=== PATIENT | male | born 1950 | race American Indian/Alaskan Native ===

== ENCOUNTER 2018-02-25 19:20 | Emergency (ER) | payer OTHER ==
--- OUTSIDE RECORDS SUMMARY | 2018-02-25 19:23 | XMS REPORT | Clinical Summary ---
:1950 Author Organization [facility] Address [address] [place] [address] Care Team Providers Name Role Phone Arthur Mac MD Primary Care Provider Allergies No Known Allergies Current Medications Prescription Sig. Disp. Refills Start Date End Date Status amlodipine-benazepri Take 1 capsule Active l (LOTREL 5-10) 5-10 by mouth mg per capsule daily. atorvastatin Take 10 mg by Active (LIPITOR) 10 MG mouth daily. tablet carbidopa-levodopa Take 1.5 Active 25-100 mg per tablets by disintegrating mouth 4 (four) tablet times a day. ON EVENING DOSE PT TAKES 1 TABLET aspirin (ECOTRIN) 81 Take 81 mg by Active MG enteric coated mouth daily. tablet tadalafil (CIALIS) Take 20 mg by Active 20 mg tablet mouth as needed. traMADol (ULTRAM) 50 Take 50 mg by Active mg tablet mouth as needed for moderate pain. rOPINIRole (REQUIP) Take 1 tablet 360 tablet 3 01/31/2017 Active 4 MG tablet by mouth 4 times a day as directed carbidopa-levodopa Take 1.5 tab 585 tablet 3 01/31/2017 Active (SINEMET) 25-100 mg by mouth at per tablet 630a then 1 tab by mouth at 930a 130p 330p 630p and 230a rOPINIRole XL Take 1 tablet 180 tablet 3 02/23/2017 Active (REQUIP XL) 8 MG 24 by mouth twice hr tablet a day at directed carbidopa-levodopa Take 1 tablet 180 tablet 3 02/23/2017 Active (SINEMET CR) 50-200 by mouth twice mg per CR tablet a day as directed baclofen (LIORESAL) TAKE 1 TABLET 90 tablet 3 04/26/2017 Active 10 MG tablet BY MOUTH 3 TIMES A DAY baclofen (LIORESAL) Take 1 tablet 90 tablet 3 12/30/2016 Discontinued 10 MG tablet (10 mg total) 7 by mouth 3 (three) times a day. clonAZEPAM Take 1 mg by Discontinued (KlonoPIN) 0.5 MG mouth nightly 7 tablet as needed for seizures. clonAZEPAM Take 2 tablets 180 tablet 0 05/23/2017 (KlonoPIN) 0.5 MG by mouth at 7 tablet bedtime clonAZEPAM TAKE 2 TABLETS 180 tablet 0 08/29/2017 (KlonoPIN) 0.5 MG BY MOUTH AT 8 tablet BEDTIME Active Problems Problem Noted Date Left hand pain 07/07/2017 Closed nondisplaced fracture of middle phalanx of left index finger 07/04/2017 REM sleep behavior disorder 11/10/2016 Parkinson disease 10/22/2016 Essential hypertension 10/22/2016 Mixed hyperlipidemia 10/22/2016 Encounters Date Type Specialty Care Team Description 08/29/2017 Refill Neurology Redd Cary MD 08/16/2017 Office Visit Orthopedic Surgery Adolfo Lazcano, Closed nondisplaced MD fracture of middle phalanx of left index finger with routine healing, subsequent encounter (Primary Dx) 07/07/2017 Hospital Encounter Radiology Adolfo Lazcano MD 07/07/2017 Office Visit Orthopedic Surgery Adolfo Lazcano, Closed nondisplaced fracture of middle phalanx of left index finger, initial encounter (Primary Dx); Left hand pain 07/07/2017 Ancillary Orders Radiology Adolfo Lazcano MD 05/23/2017 Orders Only Neurology Ruby Lion MA 04/26/2017 Refill Neurology Redd Cary MD after 02/24/2017 Family History Medical History Relation Name Comments Heart attack Father No Known Problems Mother Relation Name Status Comments Father Mother Social History Tobacco Use Types Packs/Day Years Used Date Never Smoker Smokeless Tobacco: Never Used Alcohol Use Drinks/Week oz/Week Comments No Sex Assigned at Date Recorded Not on file Last Filed Vital Signs Not on file Plan of Treatment Health Maintenance Due Date Last Done Comments COLONOSCOPY 2001 ZOSTER VACCINE 2011 PNEUMOCOCCAL POLYSACCHARIDE VACCINE AGE 65 AND OVER 2016 PNEUMOCOCCAL-13 2016 INFLUENZA VACCINE 06/14/2018 Procedures Procedure Name Priority Date/Time Associated Diagnosis Comments IA CLOSE RX Routine 07/07/2017 12:00 Closed nondisplaced Results for this PROX/MID FING SHFT PM CDT fracture of middle procedure are in FX phalanx of left index the results finger, initial section. encounter after 02/24/2017 Results XR Finger 2+ Vw Left (08/16/2017 1:25 PM) Specimen Performing Laboratory [facility] [address] [place] [address] Narrative PA, lateral, oblique x-rays of the left hand demonstrate a small, nondisplaced of fracture of the middle phalanx of the left index finger. ORTHOPEDIC INJURY TREATMENT (07/07/2017 12:00 PM) Narrative Adolfo Lazcano MD 07/07/2017 12:00 PM Orthopedic Injury Treatment Date/Time: 07/07/2017 11:58 AM Performed by: ADOLFO LAZCANO Authorized by: ADOLOF LAZCANO Consent given by: patient Site marked: site marked Timeout: Immediately prior to procedure a time out was called to verify the correct patient, procedure, equipment, child support specialist and site/side marked as required Injury Location details: left index finger Fracture type: middle phalanx fracture Pre-procedure assessment Distal perfusion: normal Distal sensation: normal Range of motion: reduced Procedure Manipulation performed? no manipulation performed Anesthetics: local anesthesia not used Immobilization: splint Splint/Brace type: static finger Supplies used: aluminum splint Post-procedure assessment Distal perfusion: normal Distal sensation: normal Range of motion: unchanged Patient tolerance: patient tolerated the procedure well with no immediate complications XR Hand 3+ Vw Left (07/07/2017 11:16 AM) Specimen Performing Laboratory [facility] [address] [place] [address] Narrative PA, lateral, oblique x-rays of the left hand demonstrate a small, nondisplaced avulsion fracture of the middle phalanx. after 02/24/2017 Insurance Payer Benefit Plan / Group Subscriber ID Type Phone Address MEDICARE MEDICARE PART A AND B xxxxxxxxxx Medicare [place], [place] AETNA AETNA [employer] INDEMNITY xxxxxxxxx Indemnity y [phone] [place], [facility] [id number]
--- NOTE | 2018-02-25 20:47 | RAD REPORT ---
EXAM DESCRIPTION: CT - Thorax Wo Con - 02/25/2018 8:21 pm CLINICAL HISTORY: Fall, left-sided chest pain do a COMPARISON: None. TECHNIQUE: Axial 5 mm thick images of the chest were obtained without IV contrast. All CT scans are performed using dose optimization technique as appropriate and may include automated exposure control or mA/KV adjustment according to patient size. FINDINGS: No pulmonary contusion or acute lung parenchymal process. No pleural thickening or pleural effusion. No pneumothorax. No abnormal mediastinal or hilar masses or lymphadenopathy seen. No gross aortic or pulmonary artery finding suspected. Assessment is limited in the absence of IV contrast. No pericardial thickening or effusion. No chest wall mass or abnormal axillary lymphadenopathy. There are nondisplaced fractures of the late ral sixth and seventh ribs. No pathologic component. Thoracic spine degenerative changes are present. IMPRESSION: Nondisplaced left sixth and seventh lateral rib fractures. No pulmonary contusion, pneumothorax or other associated finding.
--- NOTE | 2018-02-25 20:50 | RAD REPORT ---
EXAM DESCRIPTION: CT - Abdomen Wo Contrast - 02/25/2018 8:21 pm CLINICAL HISTORY: Fall, left-sided chest and abdomen pain COMPARISON: None. TECHNIQUE: Axial [address] imaging of the abdomen was performed. No IV contrast was adm inistered. Oral contrast was administered. All CT scans are performed using dose optimization technique as appropriate and may include automated exposure control or mA/KV adjustment according to patient size. FINDINGS: Lung base atelectasis is present. No pneumothorax or pleural fluid collection. Left-sided rib fracture findings are detailed on separate CT chest report. No splenic injury. Liver and pancreas also without acute findings. Gallbladder is contracted. No bili hung tree dilatation. No hydronephrosis or suspicious renal mass. Isodense masses and pyelonephritis are not excluded on a non IV contrast study. No adrenal abnormality. Stomach is distended by food. There is moderate stool volume in the nondilated colon. No free air, fr ee fluid or inflammatory stranding. No hernia, mass or bulky lymphadenopathy. Thoracic spine degenerative changes are present. Exam sensitivity is decreased when no IV contrast is administered. IMPRESSION: No traumatic injuries to the abdomen. No acute findings noted.
--- NOTE | 2018-02-25 21:07 | EDPHYS ---
Physician Documentation [facility] Name: Pritesh Salas Age: 68 yrs Sex: Male : 1950 Arrival Date: 02/25/2018 Time: 19:21 Bed 14 Private MD: ED Physician Mason Mcclelland HPI: 02/25 20:12 This 68 yrs old Male presents to ER via Wheelchair with complaints of jr8 Chest Pain, Fall Injury. 20:12 The patient or guardian reports chest pain that is located primarily in the left jr8 lateral anterior chest. Onset: The symptoms/episode began/occurred acutely, yesterday. The pain does not radiate. Associated signs and symptoms: The patient has no apparent associated signs or symptoms. The chest pain is described as sharp. Duration: The patient or guardian reports a single episode. Severity of pain: At its worst the pain was moderate in the emergency department the pain is unchanged. The patient has not experienced similar symptoms in the past. The patient has not recently seen a physician. Patient had fell and hit left chest wall. Denies hitting head or neck. No LOC. Continued pain since fall. Has a procedure or DPS coming up this week and wants to make sure he is ok . Historical: - Allergies: 19:28 Codeine; la1 - PMHx: 19:28 Parkinsons; la1 - Immunization history:: Adult Immunizations up to date. - Social history:: Smoking status: Patient/guardian denies using tobacco. ROS: 20:12 Eyes: Negative for injury, pain, redness, and discharge, ENT: Negative for injury, jr8 pain, and discharge, Neck: Negative for injury, pain, and swelling, Respiratory: Negative for shortness of breath, cough, wheezing, and pleuritic chest pain, Abdomen/GI: Negative for abdominal pain, nausea, vomiting, diarrhea, and constipation, Back: Negative for injury and pain, MS/Extremity: Negative for injury and deformity, Skin: Negative for injury, rash, and discoloration, Neuro: Negative for headache, weakness, numbness, tingling, and seizure. 20:12 Cardiovascular: Positive for chest pain, with movement, Negative for edema, orthopnea, palpitations, paroxysmal nocturnal dyspnea. Exam: 20:12 Head/Face: Normocephalic, atraumatic. Eyes: Pupils equal round and reactive to light, jr8 extra-ocular motions intact. Lids and lashes normal. Conjunctiva and sclera are non-icteric and not injected. Cornea within normal limits. Periorbital areas with no swelling, redness, or edema. ENT: Nares patent. No nasal discharge, no septal abnormalities noted. Tympanic membranes are normal and external auditory canals are clear. Oropharynx with no redness, swelling, or masses, exudates, or evidence of obstruction, uvula midline. Mucous membranes moist. Neck: Trachea midline, no thyromegaly or masses palpated, and no cervical lymphadenopathy. Supple, full range of motion without nuchal rigidity, or vertebral point tenderness. No Meningismus. Cardiovascular: Regular rate and rhythm with a normal S1 and S2. No gallops, murmurs, or rubs. Normal PMI, no JVD. No pulse deficits. Respiratory: Lungs have equal breath sounds bilaterally, clear to auscultation and percussion. No rales, rhonchi or wheezes noted. No increased work of breathing, no retractions or nasal flaring. Abdomen/GI: Soft, non-tender, with normal bowel sounds. No distension or tympany. No guarding or rebound. No evidence of tenderness throughout. Back: No spinal tenderness. No costovertebral tenderness. Full range of motion. Skin: Warm, dry with normal turgor. Normal color with no rashes, no lesions, and no evidence of cellulitis. MS/ Extremity: Pulses equal, no cyanosis. Neurovascular intact. Full, normal range of motion. Neuro: Awake and alert, GCS 15, oriented to person, place, time, and situation. Cranial nerves II-XII grossly intact. Motor strength 5/5 in all extremities. Sensory grossly intact. Cerebellar exam normal. Normal gait. 20:12 Chest/axilla: Inspection: normal, Palpation: crepitus, that is mild, of the left lateral anterior chest, tenderness, that is moderate, of the left lateral anterior chest. Vital Signs: 19:28 BP 131 / 91; Pulse 89; Resp 14; Temp 98.0(TE); Pulse Ox 100% on R/A; Weight 58.97 kg; la1 Height 5 ft. 5 in. (165.10 cm); 21:05 BP 145 / 88; Pulse 79; Resp 24; Temp 98.9; Pulse Ox 99% ; Pain 2/10; ag2 19:28 Body Mass Index 21.63 (58.97 kg, 165.10 cm) la1 MDM: 19:29 Patient medically screened. jr8 21:06 Data reviewed: vital signs, nurses notes, radiologic studies, CT scan, and as a result, jr8 I will discharge patient. Data interpreted: Pulse oximetry: on room air is 100 %. Interpretation: normal. Counseling: I had a detailed discussion with the patient and/or guardian regarding: the historical points, exam findings, and any diagnostic results supporting the discharge/admit diagnosis, radiology results, the need for outpatient follow up, a family practitioner, to return to the emergency department if symptoms worsen or persist or if there are any questions or concerns that arise at home. 02/25 19:45 Order name: CT Chest Wo Con; Complete Time: 21:06 jr8 02/25 20:14 Order name: Abdomen Wo Contrast; Complete Time: 21:06 EDMS Administered Medications: No medications were administered Disposition: 02/25/18 21:07 Discharged to Home. Impression: Multiple fractures of ribs, left side. - Condition is Stable. - Discharge Instructions: Rib Fracture. - Medication Reconciliation Form, Thank You Letter, Antibiotic Education, Prescription Opioid Use form. - Follow up: Private Physician; When: 1 - 2 days; Reason: Recheck today's complaints, Continuance of care, Re-evaluation by your physician. - Problem is new. - Symptoms have improved. Addendum: 02/27/2018 06:24 Co-signature as Attending Physician, Mason Mcclelland MD. g s Signatures: Dispatcher [employer] EDMS Last Parks PA PA jr8 Ahmet Thoams, RN RN la1 Mason Mcclelland MD MD gs Garcia, [employer] [facility]
--- NOTE | 2018-02-25 21:07 | ER ---
Nurse's Notes [facility] Name: Pritesh Salas Age: 68 yrs Sex: Male : 1950 Arrival Date: 02/25/2018 Time: 19:21 Bed 14 Private MD: Diagnosis: Multiple fractures of ribs, left side Presentation: 02/25 19:26 Presenting complaint: Patient states: I am being treated for parkinsons at [facility] and la1 had deep brain stimulation sx one week ago. 3 days ago I had a fall from standing and was fine until yesterday when I began having severe pain in left chest area. Transition of care: patient was not received from another setting of care. Onset of symptoms was February 25, 2018. Care prior to arrival: None. 19:26 Method Of Arrival: Wheelchair la1 19:26 Acuity: WENCESLAO 3 la1 Historical: - Allergies: 19:28 Codeine; la1 - PMHx: 19:28 Parkinsons; la1 - Immunization history:: Adult Immunizations up to date. - Social history:: Smoking status: Patient/guardian denies using tobacco. Screenin:53 Abuse screen: Denies threats or abuse. Nutritional screening: No deficits noted. ag2 Tuberculosis screening: No symptoms or risk factors identified. Fall Risk Fall in past 12 months (25 points). Assessment: 19:40 General: Appears in no apparent distress. comfortable, well groomed, well nourished, ag2 Behavior is calm, cooperative, appropriate for age, Smells of Reports Denies. General: Patient has incision on frontal aspect of head, incision is intact and closed with fer. Patient stated " I had a DBS for Parkinson's last week." . Pain: Complains of pain in left lower chest Pain does not radiate. Pain began 1 day ago. Neuro: Level of Consciousness is awake, alert, obeys commands, Oriented to person, place, time, Family Program Specialist are equal bilaterally Speech is normal, Pupils are PERRLA. Cardiovascular: Chest pain Patient few 3 days ago and yesterday patient started having left lower chest pain. Patient stated chest pain is lower at this time. . Cardiovascular: Heart tones present Patient's skin is warm and dry. Pulses are all present. are 3+ in right radial artery, right dorsalis pedis artery, left radial artery, left dorsalis pedis artery, left carotid pulse and right carotid pulse Rhythm is sinus rhythm. Respiratory: No deficits noted. Airway is patent Respiratory effort is even, unlabored, Respiratory pattern is regular, Breath sounds are clear bilaterally. GI: No deficits noted. Abdomen is round Bowel sounds present X 4 quads. :. : No deficits noted. Musculoskeletal:. Injury Description: Patient fell 3 days complaining of pain to the left lower side of chest. 19:58 Reassessment: Patient left for radiology. ag2 20:26 Reassessment: Patient back from CT, Patient has no s/s of distress. Patient reports no ag2 chest pain at this time. Pt reports pain with movement only. . 21:02 Reassessment: No changes from previously documented assessment. Patient and/or family ag2 updated on plan of care and expected duration. Pain level reassessed. Patient is alert, oriented x 3, equal unlabored respirations, skin warm/dry/pink. Patient reports no chest pain at this time. . Vital Signs: 19:28 BP 131 / 91; Pulse 89; Resp 14; Temp 98.0(TE); Pulse Ox 100% on R/A; Weight 58.97 kg; la1 Height 5 ft. 5 in. (165.10 cm); 21:05 BP 145 / 88; Pulse 79; Resp 24; Temp 98.9; Pulse Ox 99% ; Pain 2/10; ag2 19:28 Body Mass Index 21.63 (58.97 kg, 165.10 cm) la1 ED Course: 19:21 Patient arrived in ED. do 19:27 Triage completed. la1 19:28 Arm band placed on left wrist. la1 19:29 Last Parks PA is PHCP. jr8 19:29 Mason Mcclelland MD is Attending Physician. jr8 19:31 Teresa Ballesteros is Primary Nurse. ag2 19:53 Patient has correct armband on for positive identification. Bed in low position. Call ag2 light in reach. Side rails up X2. Adult w/ patient. panel monitor on. Pulse ox on. NIBP on. 19:53 No provider procedures requiring assistance completed. Patient maintains SpO2 ag2 saturation greater than 95% on room air. 20:21 CT Chest Wo Con In Process Unspecified. EDMS 20:21 Abdomen Wo Contrast In Process Unspecified. EDMS 21:26 Patient did not have IV access during this emergency room visit. ag2 Administered Medications: No medications were administered Outcome: 21:07 Discharge ordered by MD. mock 21:23 Discharged to home via wheelchair, with family. ag2 21:23 Condition: good 21:23 Discharge instructions given to patient, family, Instructed on discharge instructions, Demonstrated understanding of instructions, follow-up care, Instructions on use of Incentive Spirometer Prescriptions given X none 21:28 Patient left the ED. ag2 Signatures: Dispatcher [employer] EDMO Last Parks PA PA jr8 Attema, Lee, RN RN laBlack Rivers, Clara Goodson, Teresa ag2 Corrections: (The following items were deleted from the chart) 20:08 19:40 General: Patient has incision on frontal aspect of head, incision is intact and ag2 closed with fer. Patient stated " I had a DVS for Parkinson's last week." . ag2
== END 2018-02-25 21:28 | disposition home or self-care (01) ==
LOC: ER 19:20
DX: S22.42XA Multiple fractures of ribs, left side, initial encounter for closed fracture (principal); W19.XXXA Unspecified fall, initial encounter; Y93.9 Activity, unspecified; Y92.9 Unspecified place or not applicable; Z88.5 Allergy status to narcotic agent; G20 Parkinson's disease
CPT/HCPCS: 71250; 74150; 99284

== ENCOUNTER 2020-04-23 16:49 | Emergency (ER) | payer OTHER ==
--- OUTSIDE RECORDS SUMMARY | 2020-04-23 16:50 | XMS REPORT | Clinical Summary ---
:1950 Author Organization [facility] Address [address] [place] [address] Care Team Providers Name Role Phone MD Bubba Primary Care Provider Allergies No Known Allergies Medications Medication Sig Dispensed Refills Start Date End Date Status amlodipine-benazepril Take 1 capsule 0 Active (LOTREL 5-10) 5-10 mg by mouth daily. per capsule atorvastatin (LIPITOR) Take 10 mg by 0 Active 10 MG tablet mouth daily. carbidopa-levodopa Take 1.5 tablets 0 Active 25-100 mg per by mouth 4 disintegrating tablet (four) times a day. ON EVENING DOSE PT TAKES 1 TABLET aspirin (ECOTRIN) 81 MG Take 81 mg by 0 Active enteric coated tablet mouth daily. tadalafil (CIALIS) 20 Take 20 mg by 0 Active mg tablet mouth as needed. traMADol (ULTRAM) 50 mg Take 50 mg by 0 Active tablet mouth as needed for moderate pain. rOPINIRole (REQUIP) 4 Take 1 tablet by 360 tablet 3 01/31/2017 Active MG tablet mouth 4 times a day as directed carbidopa-levodopa Take 1.5 tab by 585 tablet 3 01/31/2017 Active (SINEMET) 25-100 mg per mouth at 630a tablet then 1 tab by mouth at 930a 130p 330p 630p and 230a rOPINIRole XL (REQUIP Take 1 tablet by 180 tablet 3 02/23/2017 Active XL) 8 MG 24 hr tablet mouth twice a day at directed carbidopa-levodopa Take 1 tablet by 180 tablet 3 02/23/2017 Active (SINEMET CR) 50-200 mg mouth twice a per CR tablet day as directed baclofen (LIORESAL) 10 TAKE 1 TABLET BY 90 tablet 3 04/26/2017 Active MG tablet MOUTH 3 TIMES A DAY Active Problems Problem Noted Date Left hand pain 07/07/2017 Closed nondisplaced fracture of middle phalanx of left index finger 07/04/2017 REM sleep behavior disorder 11/10/2016 Parkinson disease 10/22/2016 Essential hypertension 10/22/2016 Mixed hyperlipidemia 10/22/2016 Family History Medical History Relation Name Comments Heart attack Father No Known Problems Mother Relation Name Status Comments Father Mother Social History Tobacco Use Types Packs/Day Years Used Date Never Smoker Smokeless Tobacco: Never Used Alcohol Use Drinks/Week oz/Week Comments No Sex Assigned at Date Recorded Not on file Job Start Date Occupation Industry Not on file Not on file Not on file Travel History Travel Start Travel End No recent travel history available. Last Filed Vital Signs Not on file Plan of Treatment Health Maintenance Due Date Last Done Comments COLONOSCOPY SCREENING 2001 SHINGLES VACCINES (#1) 2001 65+ PNEUMOCOCCAL VACCINE (1 of 2 - PCV13) 2016 INFLUENZA VACCINE 06/14/2020 Results Not on fileafter 04/23/2019 Insurance Payer Benefit Plan / Subscriber ID Effective Dates Phone Addre ss Type Group MEDICARE MEDICARE PART A AND xxxxxxxxxx 2015-[facility] [place] Medicare B t AETNA AETNA [facility] xxxxxxxxx 2007-Dandre Indemnity INDEMNITY t Advance Directives For more information, please contact: [phone] Type Date Recorded Patient Analytic Manager Explanati on Advance Directives, Living Will and Medical Power of Care Aid
--- OUTSIDE RECORDS SUMMARY | 2020-04-23 16:52 | XMS REPORT | Continuity of Care Document ---
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 [facility] Hypercholesterolemia Resolved Problem 06/10/2019 Ev (disorder) Neuro,[facility], [facility] Hypertensive disorder, Resolved Problem 06/10/2019 Ev systemic arterial Ne uro, (disorder) [facility], [facility] PARKINSON'S DISEASE Active [facility] Medications Medication Details Route Status Patient Ordering Order Source Instructions Provider Date Docusate Sodium 100 mg = 1 [facility], PO, BID, 2017 Neuro Capsule PRN Constipation, # 20 cap, 0 Refill(s) Cephalexin 500 MG 500 mg = 1 No Longer [place] is[place] Oral Capsule cap, PO, TID, Active 2017 Neuro [Keflex] X 10 day, # 30 cap, 0 Refill(s) tramadol 50 mg = 1 tab, No Longer Mische r hydrochloride 50 PO, Q4H, PRN Active 2017 Ne uro MG Oral Tablet Pain, X 10 day, # 60 tab, 0 Refill(s) ondansetron Route: IV, Inactive 02/28/ [facility] (ANES) Drug form: 2018 Medical INJ, ONCE, Center Stop date: 02/28/18 9:18:00 CDT acetaminophen Route: IV, Inactive Dre as (ANES) Drug form: 2017 Medical INJ, ONCE, Center Stop date: 02/28/18 8:58:00 CDT dexamethasone Route: IV, Inactive [place] as (ANES) Drug form: 2018 Medical INJ, ONCE, Center Stop date: 02/28/18 8:53:00 CDT ceFAZolin (ANES) Route: IV, Inactive [place] Drug form: 2017 Medical INJ, ONCE, Center Stop date: 02/28/18 8:48:00 CDT Naloxone Notes: Same as No Longer Dre as Narcan Active 2018 [facility] Flumazenil Notes: (Same No Longer [place] as: Romazicon) Active 2018 Medical Center Morphine Notes: (Same No Longer [place] as:MORPhine Active 2017 [facility] Sulfate) Center Ondansetron Notes: ([place]: Zofran) Active 2018 Medical MEDICATION Center WASTE Product Size: 4 mg Product Wasted: ___ mg Labetalol 10 mg, 2 mL, [place] Route: IVP, Active 2017 Medical Drug form: Center INJ, Q5Min, Dosing Weight 59.091, kg, PRN Elevated BP, Start date: 02/28/18 8:43:00 CDT, Duration: 5 doses or times, Stop date: 03/01/18 0:00:00 CDT Hydralazine Notes: ([place] as: Active 2017 Medical Apresoline) Center Push over 5 minutes lidocaine (ANES) Route: IV, Inactive [place] Drug form: 2017 Medical INJ, ONCE, Center Stop date: 02/28/18 8:38:00 CDT fentaNYL (ANES) Route: IV, Inactive [place] Drug form: 2018 Medical INJ, ONCE, Center Stop date: 02/28/18 8:38:00 CDT propofol (ANES) Route: IV, Inactive [place] Drug form: 2017 Medical INJ, ONCE, Center Stop date: 02/28/18 8:38:00 CDT midazolam (ANES) Route: IV, Inactive [place] Drug form: 2018 Medical SOLN, ONCE, Center Stop date: 02/28/18 8:38:00 CDT Lactated Ringers Route: IV, Inactive [place] Injection IV Total Volume: 2018 Medic al (ANES) 1000 mL 1,000, Start Cent er date: 02/28/18 7:45:00 CDT, Stop date: 02/28/18 8:45:00 CDT ceFAZolin + Notes: (Same [place] Longer [place] sterile water 20 As: Ancef, Active 2018 Medi masha mL Kefzol) Center MEDICATION WASTE Product Size: 1000 mg Product Wasted: ___ mg Rytary 23.75 / 95 Rytary 23.75 / Inactive [place] mg Capsule 95 mg Capsule, 2018 Medica l 1 capsule, [place] Drug form: MISC, Route: PO, QAM, 02/15/18 7:00:00 CDT, Duration: 30 day, Stop date: 03/16/18 7:00:00 CDT Rytary 36.25 /145 Rytary 36.25 Inactive [place] mg Capsule /145 mg 2018 Medical Capsule, 1 [place] capsule, Drug form: MISC, Route: PO, QAM, 02/15/18 7:00:00 CDT, Duration: 30 day, Stop date: 03/16/18 7:00:00 CDT Rytary 61.25 / Rytary 61.25 / Inactive [place] 245 mg Capsule 245 mg 2018 Medical Capsule, 1 [place] capsule, Drug form: MISC, Route: PO, QAM, 02/15/18 7:00:00 CDT, Duration: 30 day, Stop date: 03/16/18 7:00:00 CDT tramadol 50 mg = 1 tab, No Longer [place] hydrochloride 50 PO, Q6H, PRN Active 2018 Me dical MG Oral Tablet Pain, X 10 Center day, # 40 tab, 0 Refill(s) Docusate Sodium 50 mg = 1 cap, Active H [place] 50 MG Oral PO, BID, PRN 2018 Medical Capsule Constipation, Center # 60 cap, 0 Refill(s) Acetaminophen 300 1 - 2 tab, PO, No Longer 02/15 [place] MG / Codeine Q6H, PRN Pain, Active 2017 Medi masha Phosphate 30 MG X 4 day, # 32 Ce nter Oral Tablet tab, 0 [Tylenol with Refill(s) Codeine #3] Cephalexin 500 MG 500 mg = 1 No Longer 02/15/ H [place] Oral Capsule cap, PO, TID, Active 2018 Medic al [Keflex] X 10 day, # 30 Center cap, 0 Refill(s) Clonazepam Notes: (Same No Longer [place] As: KlonoPIN) Active 2018 [facility] Ropinirole 8 mg Ropinirole 8 No Longer H [place] ER Tablet mg ER Tablet, Active 2018 Medical 1 tablet, Drug Center form: MISC, Route: PO, QPM, 02/14/18 20:30:00 CDT, Duration: 30 day, Stop date: 03/15/18 20:30:00 CDT Rytary 36.25 / Rytary 36.25 / No Longer [place] 145 mg Capsule 145 mg Active 2017 Medical Capsule, 3 Center capsules, Drug form: MISC, Route: PO, TID, 02/14/18 20:30:00 CDT, Duration: 30 day, Stop date: 03/16/18 16:00:00 CDT Ancef Notes: (Same No Longer [facility] as Ancef) Active [address] [place] [address] sertraline 25 mg 25 mg = 1 tab, Active [facility] oral tablet PO, Daily, at 2018 Medica l 5pm, # 30 tab Center Requip Notes: (Same No Longer [facility] as: Requip) Active 2018 [facility] rOPINIRole 8 mg 8 mg = 1 tab, Active [place] oral tablet, PO, BID 2018 Medical extended release Center 8 HR Carbidopa 3 cap, PO, QID Inactive H [place] 36.25 MG / 2018 Medical Levodopa 145 MG Center Extended Release Oral Capsule [Rytary] Rytary (Carbidopa Rytary Inactive [place] 36.25 mg/ (Carbidopa 2018 Medical levodopa 145 mg) 36.25 mg/ Cente r levodopa 145 mg), 3 cap, Drug form: MISC, Route: PO, ONCE, 02/14/18 13:13:00 CDT, Stop date: 02/14/18 13:13:00 CDT levETIRAcetam Route: IV, Inactive [place] (ANES) Drug form: 2018 Medical INJ, ONCE, Center Stop date: 02/14/18 12:18:00 CDT Ondansetron Notes: (Same [place] Long[place] as: Zofran) Active 2018 Medical MEDICATION Center WASTE Product Size: 4 mg Product Wasted: ___ mg Flumazenil Notes: (Same No Longer [place] as: Romazicon) Active 2018 Medical Center Naloxone Notes: Same as No Longer [place] Narcan Active 2018 [facility] Fentanyl Notes: (Same No Longer [place] as: Sublimaze) Active 2018 Medical Preservative Center free. Hydralazine Notes: (Same [place] Longer [place] as: Active 2018 [facility] Apresoline) [place] Push over 5 minutes Labetalol 10 mg, 2 mL, [place]er [place] Route: IVP, Active 2018 [facility] Drug form: Center INJ, Q5Min, Dosing Weight 60.455, kg, PRN Elevated BP, Start date: 02/14/18 10:47:00 CDT, Duration: 5 doses or times, Stop date: 02/15/18 0:00:00 CDT ceFAZolin (ANES) Route: IV, Inactive [place] Drug form: 2018 Medical INJ, ONCE, Center Stop date: 02/14/18 9:48:00 CDT Saline Flush 0.9% Notes: (Same No Longer [place] as: BD Active 2018 [facility] Posiflush) [place] Docusate Sodium Notes: (Same No Longer H [place] 100 MG Oral as: Colace) Active 2018 Medical Capsule (Do Not Crush) [place] sennosides, [facility] Notes: (Same No Longer H [place] as: Senokot) Active 2018 Medical [place] Carbidopa 25 MG / 1 tab, Route: Inactive [place] Levodopa 100 MG PO, Drug Form: 2018 edical Oral Tablet TAB, Dosing Center Weight 60.455, kg, Daily, Start date: 02/14/18 9:00:00 CDT, Duration: 30 day, Stop date: 03/15/18 9:00:00 CDT Sertraline Notes: (Same No Longer [place] as: Zoloft) Active [address] [place] [address] ropinirole 8 mg, Route: [place] PO, Drug form: 2018 Medical ERTAB, Daily, Center Dosing Weight 60.455, kg, Start date: 02/14/18 9:00:00 CDT, Duration: 30 day, Stop date: 03/15/18 9:00:00 CDT dexmedetomidine Route: IV, Inactive [place] (ANES) 200 Drug form: 2018 Medical microgram INJ, Start Center date: 02/14/18 8:33:00 CDT, Stop date: 02/14/18 9:33:00 CDT fentaNYL (ANES) Route: IV, Inactive [place] Drug form: 2018 Medical INJ, ONCE, Center Stop date: 02/14/18 8:32:00 CDT Lactated Ringers Route: IV, Inactive [place] Injection IV Total Volume: 2018 Medic al (ANES) 1000 mL 1,000, Start Cent er date: 02/14/18 8:26:00 CDT, Stop date: 02/14/18 9:26:00 CDT Regular Insulin, 60 units) No Longer 02/14/ [facility] Human 100 UNT/ML WASTE: F/P - Active 2018 Ri dical Injectable Black; E - [place] Solution Municipal Trash Bin Stable for 28 days at room temperature Expires in days from Date Dextrose 50% 6.25 gm, 12.5 No Longer [place] Syringe mL, Route: Active [facility] Medical IVP, Drug Center Form: INJ, Dosing Weight 60.455, kg, PRN, PRN Abnormal Lab Result, Start date: 02/14/18 8:24:00 CDT, Duration: 30 day, Stop date: 03/16/18 8:23:00 CDT Insulin regular 60 units) No Longer [place] WASTE: F/P - Active 2018 Medical Black; E - Center Municipal Trash Bin Stable for 28 days at room temperature Expires in days from Date Saline Flush 0.9% Notes: (Same No Longer [place] as: BD Active 2017 Medical Posiflush) Center Ondansetron Notes: (Same [place] Long[place] as: Zofran) Active 2017 Medical MEDICATION Center WASTE Product Size: 4 mg Product Wasted: ___ mg Sodium Chloride 1,000 mL, No Longer [place] 0.9% IV 1,000 mL Rate: 75 Active 2018 Medica l ml/hr, Infuse Center over: 13.3 hr, Route: IV, Dosing Weight 60.455 kg, Total Volume: 1,000, Start date: 02/14/18 8:22:00 CDT, Stop date: 03/16/18 8:21:00 CDT, 1.68, m2 Morphine Notes: (Same No Longer [place] as:MORPhine Active 2017 Medical Sulfate) Center Hydralazine Notes: (Same [place] Long[place] as: Active 2017 Medical Apresoline) Center Push over 5 minutes Tylenol Notes: Do not No Longer [facility] exceed 4 Active 2017 Medical gm/day. (Same Center as: Tylenol) Acetaminophen 325 Notes: (Same No Longer [place] MG / Hydrocodone as: [place] Active 2017 Medic al Bitartrate 5 MG 325/5) Do not C enter Oral Tablet exceed 4gm/day [[place] 5/325] of acetaminophen. Labetalol 10 mg, 2 mL, [place] Long[place] Route: IVP, Active 2017 Medical Drug form: Center INJ, Q15Min, Dosing Weight 60.455, kg, PRN Hypertension, Start date: 02/14/18 8:21:00 CDT, Duration: 3 doses or times, Stop date: 02/15/18 0:00:00 CDT acetaminophen Route: IV, Inactive [place] (ANES) 10 mg Drug form: 2017 Medical INJ, Start Center date: 02/14/18 7:47:00 CDT, Stop date: 02/14/18 8:47:00 CDT ceFAZolin + Notes: (Same [place] Long[place] sterile water 20 As: Ancef, Active 2017 [facility] mL Kefzol) Center MEDICATION WASTE Product Size: 1000 mg Product Wasted: ___ mg 8 HR Carbidopa 1 cap, PO, Active [place] 61.25 MG / Daily, At 0700 2017 Medica l Levodopa 245 MG [place] Extended Release Oral Capsule [Rytary] Clonazepam 0.5 mg, PO, Active [facility] Bedtime 2018 [facility] Fish Oil 1,200 mg, PO, [place] Daily Active [address] [place] [address] Sertraline 25 mg, PO, No Longer [facility] Daily Active [address] [place] [address] multivitamin 1 tab, PO, No Longer [place] Daily Active [address] [place] [address] 8 HR Carbidopa 3 cap, PO, Active [place] 36.25 MG / TID, At 1130, 2017 [facility] Levodopa 145 MG 1600, 2029 Cente r Extended Release Oral Capsule [Rytary] POLYETHYLENE 17 gm, PO, PRN No Longer [facility] GLYCOL [address] [place] [address] rOPINIRole 8 mg 8 mg = 1 tab, No Longer [facility] oral tablet, PO, Daily, At Active 2018 [facility] al extended release 2030 [place] Tramadol 50 mg, PO, No Longer [facility] PRN, PRN Pain Active [address] [place] [address] rOPINIRole 2 mg 2 mg = 1 tab, Active [facility] oral tablet PO, TID, At 2018 [facility] 0700, 1130, Center 1600 Aspirin 81 mg, PO, No Longer [facility] Daily Active [address] [place] [address] 8 HR Carbidopa 1 cap, PO, Active [place] 23.75 MG / Daily, At 0700 2018 Medica l Levodopa 95 MG [place] Extended Release Oral Capsule [Rytary] [place]-3 oral 360 mg =, PO, No Longer [facility] capsule Daily Active [address] [place] [address] Allergies, Adverse Reactions, Alerts Substance Category Reaction Severity Reaction Status Date Comments S ource type Reported oxyCODONE Assertion Nausea Propensity Active H [facility] and to adverse vomiting reactions to drug HYDROcodone Assertion Nausea Propensity Active [facility] and to adverse vomiting reactions to drug Immunizations No Data Provided for This Section Results Order Name Results Value Reference Date Interpretation Comments Ade rce Range BLOOD BANK Antibody Scrn Negative 02/28 [facility] as RESULTS (02/28/18 6:40 AM) [facility] BLOOD BANK ABO/Rh O POS 02/28 [facility] ELECTROLYTE AGAP 12.3 10.0 - 02/28 [facility] S 20.0 [facility] ELECTROLYTE B/C Ratio 15 6 - 25 02/28 [facility]2017 [facility] ELECTROLYTE Globulin 3.9 2.7 - 4.2 02/28 [facility]2017 [facility] ELECTROLYTE A/G Ratio 0.7 0.7 - 1.6 02/28 [facility]2017 [facility] ELECTROLYTE Calcium Lvl 8.8 8.5 - 10.5 02/28 [place] [facility] ELECTROLYTE Albumin Lvl 2.9 3.5 - 5.0 02/28 [facility] as [facility] ELECTROLYTE Total Protein 6.8 6.4 - 8.4 02/28 [facility] ELECTROLYTE ALT 9 0 - 65 02/[address] ELECTROLYTE Alk Phos 74 39 - 136 02/28 [facility]2017 [facility] ELECTROLYTE AST 22 0 - 37 02/[address] ELECTROLYTE Bili Total 0.5 0.2 - 1.3 02/28 [facility]2017 [facility] ELECTROLYTE BUN 10 7 - 22 02/28 [facility]2017 [facility] ELECTROLYTE Glucose Lvl 110 70 - 99 02/[address] ELECTROLYTE Creatinine 0.68 0.50 - 02/28 [facility] Lvl 1.40 [facility] ELECTROLYTE Sodium Lvl 139 135 - 145 02/28 [facility]2017 [facility] ELECTROLYTE Potassium Lvl 4.3 3.5 - 5.1 02/28 [facility]2017 [facility] ELECTROLYTE CO2 29 24 - 32 02/[address] ELECTROLYTE Chloride Lvl 102 95 - 109 02/[address] ELECTROLYTE eGFR 99 02/28 Result [facility] Comment: The Medical eGFR is Center calculated using the CKD-EPI formula. In most young, healthy individuals the eGFR will be >90 mL/min/1.73m2 . The eGFR declines with age. An eGFR of 60-89 may be normal in some populations, particularly the elderly, for whom the CKD-EPI formula has not been extensively validated. Use of the eGFR is not recommended in the following populations:< br/>
Inna viduals with unstable creatinine concentration s, including patients and those with serious co-morbid conditions.<b r/>
Patie nts with extremes in muscle mass or diet.

The data above are obtained from the National Kidney Disease Education Program (NKDEP) which additionally recommends that when the eGFR is used in patients with extremes of body mass index for purposes of drug dosing, the eGFR should be multiplied by the estimated BMI. HEMATOLOGY INR 1.09 0.85 - 02/28 [place] 1. [facility] HEMATOLOGY PTT 35.2 22.9 - 02/28 [place] 35.8 [facility] HEMATOLOGY PT 14.1 12.0 - 02/28 [place] 14.7 [facility] HEMATOLOGY Basophils # 0.1 0.0 - 0.2 02/28 [facility] HEMATOLOGY Eosinophils # 0.3 0.0 - 0.5 02/28 [facility] HEMATOLOGY Monocytes # 0.6 0.0 - 0.8 02/28 [facility] HEMATOLOGY Lymphocytes # 1.1 1.0 - 5.5 02/28 [facility] HEMATOLOGY Segs-Bands # 6.1 1.5 - 8.1 02/28 [facility] HEMATOLOGY Basophils 0.7 0.0 - 1.0 02/28 [facility] HEMATOLOGY Eosinophils 3.8 0.0 - 4.0 02/28 a [facility] HEMATOLOGY Monocytes 6.8 2.0 - 12.0 02/28 [facility] HEMATOLOGY Lymphocytes 13.8 20.0 - 02/28 [place] 40.0 [facility] HEMATOLOGY Segs 74.9 45.0 - 02/28 [place] 75.0 [facility] HEMATOLOGY MPV 7.9 7.4 - 10.4 02/28 [facility] HEMATOLOGY RDW 13.3 11.5 - 02/28 [place] 14.5 [facility] HEMATOLOGY MCHC 34.1 32.0 - 02/28 [place] 36.0 [facility] HEMATOLOGY MCV 94.9 80.0 - 02/28 [place] 94.0 [facility] HEMATOLOGY Hct 40.1 42.0 - 02/28 [place] 54.0 [facility] HEMATOLOGY Platelet 253 133 - 450 02/28 [facility] HEMATOLOGY MCH 32.3 27.0 - 02/28 [place] 31.0 [facility] HEMATOLOGY RBC 4.22 4.70 - 02/28 [place] 6.10 [facility] HEMATOLOGY Hgb 13.7 14.0 - 02/28 [place] 18.0 [facility] HEMATOLOGY WBC 8.2 3.7 - 10.4 02/28 [facility] BLOOD BANK Antibody Scrn Negative 02/14 [place] RESULTS (02/14/18 6:57 AM) [facility] BLOOD BANK ABO/Rh O POS 02/14 [facility] RESULTS [facility] ELECTROLYTE AGAP 10.5 10.0 - 01/30 [facility] S 20.0 [facility] ELECTROLYTE eGFR 101 01/30 Result [facility] Comment: The Medical eGFR is Center calculated using the CKD-EPI formula. In most young, healthy individuals the eGFR will be >90 mL/min/1.73m2 . The eGFR declines with age. An eGFR of 60-89 may be normal in some populations, particularly the elderly, for whom the CKD-EPI formula has not been extensively validated. Use of the eGFR is not recommended in the following populations:< br/>
Inna viduals with unstable creatinine concentration s, including patients and those with serious co-morbid conditions.<b r/>
Patie nts with extremes in muscle mass or diet.

The data above are obtained from the National Kidney Disease Education Program (NKDEP) which additionally recommends that when the eGFR is used in patients with extremes of body mass index for purposes of drug dosing, the eGFR should be multiplied by the estimated BMI. ELECTROLYTE Glucose Lvl 74 70 - 99 01/30 [facility] ELECTROLYTE CO2 32 24 - 32 01/30 [facility] ELECTROLYTE Calcium Lvl 9.0 8.5 - 10.5 01/30 [facility] ELECTROLYTE BUN 9 7 - 22 01/[address] [place] [address] [facility] ELECTROLYTE Chloride Lvl 102 95 - 109 01/[address] [facility] ELECTROLYTE Creatinine 0.65 0.50 - 01/30 [place] S Lvl 1.40 /2017 [facility] ELECTROLYTE Sodium Lvl 140 135 - 145 01/[address] [address] [facility] ELECTROLYTE Potassium Lvl 4.5 3.5 - 5.1 01/30 [place] [facility] HEMATOLOGY PTT 36.6 22.9 - 01/30 [place] 35.8 /2018 [facility] HEMATOLOGY PT 13.9 12.0 - 01/30 [place] 14.7 [facility] HEMATOLOGY INR 1.07 0.85 - 01/30 [place] 1.17 [facility] HEMATOLOGY WBC 6.0 3.7 - 10.4 01/30 [facility] HEMATOLOGY Platelet 212 133 - 450 01/30 [facility] HEMATOLOGY MPV 8.1 7.4 - 10.4 01/30 [facility] HEMATOLOGY MCHC 33.2 32.0 - 01/30 [place] 36.0 [facility] HEMATOLOGY Hgb 14.4 14.0 - 01/30 [place] 18.0 [facility] HEMATOLOGY RDW 13.4 11.5 - 01/30 [place] 14.5 /2017 [facility] HEMATOLOGY MCH 32.0 27.0 - 01/30 [place] 31.0 [facility] HEMATOLOGY Hct 43.5 42.0 - 01/30 [place] 54.0 [facility] HEMATOLOGY MCV 96.2 80.0 - 01/30 [place] 94.0 [facility] HEMATOLOGY RBC 4.52 4.70 - 01/30 [place] 6.10 [facility] HEMATOLOGY Segs 57.4 45.0 - 01/30 [place] 75.0 2018 [facility] HEMATOLOGY Lymphocytes # 1.8 1.0 - 5.5 01/30 [place] [facility] HEMATOLOGY Monocytes # 0.4 0.0 - 0.8 01/[place] [facility] HEMATOLOGY Lymphocytes 30.3 20.0 - 01/30 [place] 40.0 2018 [facility] HEMATOLOGY Monocytes 7.1 2.0 - 12.0 01/30 [facility] HEMATOLOGY Eosinophils 4.3 0.0 - 4.0 01/30 [facility] s [facility] HEMATOLOGY Eosinophils # 0.3 0.0 - 0.5 01/30 [facility] [place] [facility] HEMATOLOGY Basophils # 0.1 0.0 - 0.2 01/30 [facility] s [facility] HEMATOLOGY Basophils 0.9 0.0 - 1.0 01/[address] HEMATOLOGY Segs-Bands # 3.5 1.5 - 8.1 01/30 [facility] as [facility] URINE AND Micro? Not Indicated 01/30 [facility] STOOL *NA* /2017 [facility] (01/30/18 2:10 PM) [place] URINE AND UA <=1.0 0.1 - 1.0 01/30 [facility] Urobilinogen mg/dL /2017 [facility] URINE AND UA Sq Epi RARE 01/30 [facility] URINE AND UA Blood Negative Negative 01/30 [facility] (01/30/18 2:10 PM) /[facility] URINE AND UA Mucus Few /LPF None Seen 01/30 [facility] STOOL /LPF /2017 [facility] URINE AND UA WBC 1 0 - 5 01/30 [facility] URINE AND UA Bacteria Occasional None Seen 01/30 [facility] [place] STOOL /HPF /HPF /2017 [facility] URINE AND UA Nitrite Negative Negative 01/30 [facility] (01/30/18 2:10 PM) [facility] URINE AND UA Leuk Est Negative Negative 01/30 [facility] (01/30/18 2:10 PM) /2017 [facility] URINE AND UA Ketones Negative Negative 01/30 [facility] mg/dL mg/dL /2017 [facility] URINE AND UA Bili Negative Negative 01/30 [facility] *NA* /2017 [facility] (01/30/18 2:10 PM) [place] URINE AND UA Protein Negative Negative 01/30 [facility] STOOL mg/dL mg/dL [facility] URINE AND UA pH 6.5 5.0 - 8.0 01/30 [facility] [address] [place] [address] URINE AND UA Glucose Negative Negative 01/30 [facility] mg/dL mg/dL [facility] URINE AND UA Turbidity Clear Clear 01/30 [facility] (01/30/18 2:10 PM) /2017 [facility] URINE AND UA Spec Grav 1.005 <=1.030 01/30 [facility] STOOL /2018 Medical Center URINE AND UA Color Yellow Yellow 01/30 [facility] STOOL *NA* /2017 Medical (01/30/18 2:10 PM) Center Pathology Reports No Data Provided for This Section Diagnostic Reports Report Value Date Source Brain Stealth wo 02/14/2018 [facility] Medica l contrast CT EXAMINATION: CT head without contrast Center DATE: 02/14/2018 INDICATION: Parkinson's disease. FINDINGS: High-resolution noncontrast images of the head are performed with a stereotactic frame in place. [place] screws are in satisfactory position and images are adequate for localization. Global volume loss with some disproportionate enlargement of the ventricular system again noted consistent with the appearance on the magnetic resonance imaging of 02/02/2018. IMPRESSION: Images adequate for localization. Brain w/wo contrast 02/02/2018 [facility] ical MRI EXAMINATION: MRI brain with and without contrast Center DATE: 02/02/2018 INDICATION: Parkinson's disease. FINDINGS: Multiplanar multisequence MR I images the brain are performed both before and after intravenous administration of gadolinium contrast material. Three- dimensional images are acquired for operative localization. There are no studies for comparison. There are subtle T2 signal c hanges in the globus pallidus bilaterally seen in both T2-weighted and fluid attenuated imaging. Chronic small vessel ischemi c changes are present in the periventricular white matter both frontal lobes and in the central mariajose. There is moderate to severe global volume loss with some temporoparietal predominance. The extra-axial spaces over the convexities are relatively small compared to the basilar cisterns raising the possibility normal pressure hydrocephalus. IMPRESSION: Images adequate for localization. Increased T2 signal in the g lobus pallidus bilaterally without volume loss. Question metabolic abnormality Attenuation of the extra-axi al spaces over the convexities. Question normal pressure hydrocephalus. Consultation Notes No Data Provided for This Section Discharge Summaries No Data Provided for This Section History and Physicals No Data Provided for This Section Vital Signs Vital Sign Value Date Comments Source Height 165.1 cm 06/16/2018 [facility] Weight 61.364 06/16/2018 [facility] BMI Calculated 22.51 06/16/2018 [facility] Heart Rate 71 06/16/2018 [facility] Systolic (mm Hg) 122 06/16/2018 [facility] [place] [facility] Diastolic (mm Hg) 80 06/16/2018 [facility] BMI Calculated 21.84 03/17/2018 [facility] Weight 61.364 03/17/2018 [facility] Height 167.64 cm 03/17/2018 [facility] Heart Rate 73 03/17/2018 [facility] Systolic (mm Hg) 134 03/17/2018 [facility] [place] [facility] Diastolic (mm Hg) 88 03/17/2018 [facility] Systolic (mm Hg) 165 02/28/2018 [facility] Diastolic (mm Hg) 79 02/28/2018 [facility] Respitory Rate 18 02/28/2018 [facility] Systolic (mm Hg) 137 02/28/2018 [facility] Diastolic (mm Hg) 86 02/28/2018 [facility] Systolic (mm Hg) 151 02/28/2018 [facility] Diastolic (mm Hg) 87 02/28/2018 [facility] Respitory Rate 14 02/28/2018 [facility] Center Respitory Rate 14 02/28/2018 [facility] Heart Rate 85 02/28/2018 [facility] Weight 59.091 02/22/2018 [facility] BMI Calculated 21.03 02/22/2018 [facility] Center Height 167.64 cm 02/22/2018 [facility] Respitory Rate 20 02/15/2018 [facility] Systolic (mm Hg) 137 02/15/2018 [facility] Diastolic (mm Hg) 79 02/15/2018 [facility] Temperature Oral (F) 97.9 F 02/15/2018 [facility] Systolic (mm Hg) 139 02/15/2018 [facility] Diastolic (mm Hg) 79 02/15/2018 [facility] Respitory Rate 39 02/15/2018 [facility] Respitory Rate 12 02/15/2018 [facility] Systolic (mm Hg) 124 02/15/2018 [facility] Diastolic (mm Hg) 78 02/15/2018 [facility] Temperature Oral (F) 98.1 F 02/15/2018 [facility] Heart Rate 95 02/14/2018 [facility] Systolic (mm Hg) 139 02/02/2018 [facility] Diastolic (mm Hg) 76 02/02/2018 [facility] Respitory Rate 20 02/02/2018 [facility] Center Respitory Rate 20 02/02/2018 [facility] Systolic (mm Hg) 134 02/02/2018 [facility] Diastolic (mm Hg) 81 02/02/2018 [facility] Respitory Rate 18 02/02/2018 [facility] Center Systolic (mm Hg) 132 02/02/2018 [facility] Diastolic (mm Hg) 81 02/02/2018 [facility] Heart Rate 69 02/02/2018 [facility] Height 165.1 cm 02/02/2018 [facility] BMI Calculated 22.18 02/02/2018 [facility] Weight 60.455 02/02/2018 [facility] Heart Rate 63 01/30/2018 [facility] BMI Calculated 22.18 01/30/2018 [facility] Height 165.1 cm 01/30/2018 [facility] Weight 60.455 01/30/2018 [facility] BMI Calculated 21.03 12/16/2017 [facility] Weight 59.091 12/16/2017 [facility] Height 167.64 cm 12/16/2017 [facility] Systolic (mm Hg) 145 12/16/2017 [facility] [place] [facility] Diastolic (mm Hg) 89 12/16/2017 [facility] Heart Rate 84 12/16/2017 [facility] Heart Rate 69 12/21/2016 [facility] Systolic (mm Hg) 101 12/21/2016 [facility] Diastolic (mm Hg) 71 12/21/2016 [facility] Heart Rate 66 12/14/2016 [facility] Systolic (mm Hg) 111 12/14/2016 [facility] Diastolic (mm Hg) 71 12/14/2016 [facility] Systolic (mm Hg) 122 12/09/2016 [facility] Diastolic (mm Hg) 79 12/09/2016 [facility] Heart Rate 76 12/09/2016 [facility] Encounters Location Location Encounter Encounter Reason Attending ADM OK Stat us Source Details Type Number For Provider Date Date Visit [facility] [id number] [facility] 11/22 12/22 [facility] [id number] [facility] 12/22 01/21 [facility]2016 [place] [facility] [id number] Veronica 10/21 10/21 [facility] Pre[facility]Reg G[facility]elda-Stimm /2016 [facility] Phone [id number] 11/17 11/19 Misc her Neurosurger Message /2017 [facility] [place] [facility] Phone [id number] 11/22 11/24 Misc her Neurosurger Message /2017 [facility] [id number] VAUGHN12/16 [facility] [place] [facility] [id number] Veronica 12/16 12/17 [facility] G[facility]elda[facility] /2017 N euro y [facility] Phone [id number] 12/16 12/18 Misc her Neurosurger Message /2017 [facility] [place] [facility] Phone [id number] 12/16 12/18 Misc her Neuroscienc Message /2017 Neur o e [place] [facility] Phone [id number] 01/16 01/18 Misc her Neurosurger Message /2017 [facility] [place] [facility] Phone [id number] 01/16 01/18 Misc her Neurosurger Message /2017 Neur o y [facility] Surgery [id number] Vaughn 02/02 02/03 [facility] /2017 [facility] Outpatient [id number] VAUGHN 02/14 Active [facility] Inpatient [id number] Vaughn 02/14 [facility] Outpatient [id number] Veronica 02/14 02/15 [facility] /2017 N euro y [facility] ing Outpatient [id number] VAUGHN 02/28 [facility] Day Surgery [id number] Vaughn 02/28 03[facility]01 [facility] Outpatient [id number] Vaughn 02/28 03/01 [facility] Fenoy Jr /2017 [facility] Phone [id number] 03/02 03/04 [facility] her Neurosurger Message Neur o y [facility] Outpatient [id number] 03/17 Active [facility] [place] [facility] Outpatient [id number] Vaughn03/17 [facility] Fen Jr [facility] Outpatient [id number] VAUGHN06/16 Active [facility] [place] [facility] Outpatient [id number] Vaughn06/16 [facility] [id number] Veronica 11/08 11/21 [facility] G[facility]elda[facility]Stimm /2017 [facility] Procedures Procedure Code Date Perfomer Comments Source Open repair of [id number] 11/14/2005 [facility] meniscus Neuro,[facility] Fasciotomy [id number] 11/14/2002 [facility], [facility] ACL - Repair of [id number] 11/14/1997 [facility] anterior cruciate Neuro,[facility] ligament [facility], [facility] Deep brain [id number] [facility] stimulation Neuro,[facility] Assessment and Plan Assessment and Plan Date Source Extracted from:Title: [facility] Progress note 02/15/2018 [facility] Author: Berenice Hernández MD Date: 02/15/18 [facility] Progress Note Subjective: Patient seen at bedside with daughter Belle. Is drowsy, but arousable. States "I'm okay" Denies GRIFFIN, N, V. Tolerating PO intake. I s yet to ambulate. Was drowsy yesterday evening as well, but more awake last night night and ate dinner on his own per his daughter. Family plans to drive back to [place] today. O: Vitals reviewed. Vitals Tmp(F) Tmp(C) Ttype B P MAP Pulse RR SpO2 FIO2 ETCO2 02/15 07:41 ---- ---- ---- - ---- --- 74 20 --- --- --- 02/15 07:00 97.9 36.61 oral 137/79 103 --- -- 96 --- --- 02/15 06:00 ---- ---- ---- 1 103 82 39 96 --- --- 02/15 05:00 ---- ---- ---- 1 97 67 12 95 --- --- 02/15 04:00 ---- ---- ---- 1 89 71 12 96 --- --- 24 Hr Tmax: 98.1F (36.72c) at 02/15 00:0 0 Vital Signs are the last 5 in the past 48 hours. 24 Hr Tmin: 97.9F (36.61c) at 02/15 07: 00 Weights are the last 5 in 60 days, plus initial. Date Wt(kg) Wt(lb) Ht(cm) Ht(in) Method BM I BSA 01/30 (initial) 60.45 133.00 165.10 65.00 Measured 22.2 1.67 (no point of care glucose results charted in last 24 hours) Most Recent Scores: 02/15/18 [place] [facility] Fall Score 15 02/15/18 Benito Score 18 02/15/18 Pain Intensity NRS (0-10) 0 02/15/18 Edilma Coma Score 15 Lines, Tubes, and Drains: 02/14/2018 07:21 Peripheral Lines: Hand Left 20 gauge Over t he needle catheter Surgical Procedures: 02/14/18 09:33 STAGE 1 STEREOTACTIC I MPLANTATION OF DEEP BRAIN STIMULATOR, ELECTRODES BILATERAL SUBTHALAMIC NUCLEUS WITH LEKSELL FRAME [id number] Primary Surgeon: Vaughn Hernandez MD (Service: RYDER) Gen: - Incision site noted over scalp, dressings + and c/d/i - No pedal edema Neuro: Drowsy but arousable to light touch and oriented to name, pl marquez and time PERRLA, EOMI, symmetric smile, tongue mi dline, shoulder shrug bilaterrally symmetric Able to move all extremities A/G to command Intact to light touch and symmetric b/l Cogwheeling + R>L Cerebellar testing: FNT attempted, but patient falling aslee p Gait: Deferred 2/2 patient's drowsy state A: 68 y/o R handed M with PMH of akineti c-rigid Parkinson's disease who is now POD #1 s/p bilateral STN DBS. Doing well post-operatively in terms of tolerating PO intake. Is drowsy, but arousable t o verbal and light tactile stimuli. Some degree of sleep-wake cycle disruption is noted by the family even prior to the surgery which could add to the patient's delirium in addition to chage in env ironment, recovery from anesthetics and recent surgery. 1. Okay from the neurology perspective t o discharge home with supervision once the patient ambulates. 2. Wound care precautions per neurosurgery 3. Patient will return for DBS stage II as scheduled and then follow up with [facility]/Dr Khoury on 03.13.2018 for programming. 4. Advised to avoid sedating medications like Clonazepam in this setting. Can try melatonin 3 to 5 mg qBedtime for insomnia as needed. 5. Fall risk precaution counseling 6. Counseled to watch for any signs of w orsening neurological impairment or confusion, fevers or any other signs of infection. Staffed with Dr Khoury. Plan of c are discussed with patient and family and all of their questions answered in detail. Berenice Hernández PGY-5 [facility] Plan of Care No Data Provided for This Section Social History Social History Date Source Social History TypeResponse 01/30/2018 [facility] Alcohol Current, Frequency: 1-2 times per year. Smoking Status Former smoker; Type: Cigarettes; Exposur e to Tobacco Smoke None; Cigarette Smoking Last 365 Days No; Reg Smoking Cessation Counseling No1 entered on: 06/16/18 1Quit smoking 45 years ago Social History TypeResponse 01/30/2018 [facility] Alcohol Current, Frequency: 1-2 times per year. Smoking Status Former smoker; Type: Cigarettes; Exposur e to Tobacco Smoke None; Cigarette Smoking Last 365 Days No; Reg Smoking Cessation Counseling No1 entered on: 06/16/18 1Quit smoking 45 years ago Social History TypeResponse 01/30/2018 [facility] Alcohol Current, Frequency: 1-2 times per year. Smoking Status Former smoker; Type: Cigarettes; Exposur e to Tobacco Smoke None; Cigarette Smoking Last 365 Days No; Reg Smoking Cessation Counseling No1 entered on: 06/16/18 1Quit smoking 45 years ago Family History No Data Provided for This Section Advance Directives No Data Provided for This Section Functional Status No Data Provided for This Section
--- NOTE | 2020-04-23 18:15 | ER ---
Nurse's Notes [facility] Name: Pritesh Salas Age: 70 yrs Sex: Male : 1950 Arrival Date: 04/23/2020 Time: 16:53 Bed 2 Private MD: Arthur Mac V Diagnosis: Fall due to bumping against object;Pain in right elbow Presentation: 04/23 17:03 Chief complaint: Patient states: it happened about a few hours ago. Chief complaint: tw2 Spouse and/or significant other states: he has parkinsons and he fell from standing position, he missed the chair behind him and he fell and landed on the right elbow, it hit the wood floor, so we iced it, it doesn't look too good to us and we would like an xray. Coronavirus screen: Patient denies a cough. Patient denies shortness of breath or difficulty breathing. Patient denies measured and/or subjective temperature greater than 100.4F prior to today's visit. Patient denies travel on a cruise ship or to a country the [facility] currently lists as an affected area. Patient denies contact with known and/or suspected case of COVID-19. Ebola Screen: Patient denies travel to an Ebola-affected area in the 21 days before illness onset. Initial Sepsis Screen: Does the patient meet any 2 criteria? No. Patient's initial sepsis screen is negative. Does the patient have a suspected source of infection? No. Patient's initial sepsis screen is negative. Risk Assessment: Do you want to hurt yourself or someone else? Patient reports no desire to harm self or others. Onset of symptoms was April 23, 2020. 17:03 Method Of Arrival: Wheelchair tw2 17:03 Acuity: WENCESLAO 4 tw2 17:06 Chief complaint: Spouse and/or significant other states: he doesn't take any blood tw2 thinners just parkinsons medicine, but he fell a couple of hours ago. 17:15 Care prior to arrival: None. Mechanism of Injury: Fall from standing position. Trauma ph event details: Injury occurred in the [facility], Injury occurred: at home. Injury occurred: April 23, 2020. Triage Assessment: 17:07 General: Appears in no apparent distress. slender, well groomed, Behavior is calm, tw2 cooperative, appropriate for age. Pain: Complains of pain in right elbow. Trauma Activation: Not Applicable Physician: ED Physician; Name: ; Notified At: ; Arrived At: Physician: General Surgeon; Name: ; Notified At: ; Arrived At: Physician: Radiology; Name: ; Notified At: ; Arrived At: Physician: Respiratory; Name: ; Notified At: ; Arrived At: Physician: Lab; Name: ; Notified At: ; Arrived At: Historical: - Allergies: 17:06 Codeine; tw2 - PMHx: 17:06 Parkinsons; tw2 - Immunization history:: Adult Immunizations. - Social history:: Smoking status: . - Immunization history: Last tetanus immunization: unknown. - Family history:: not pertinent. Screenin:21 Abuse screen: Denies threats or abuse. Denies injuries from another. Nutritional ph screening: No deficits noted. Tuberculosis screening: No symptoms or risk factors identified. Fall Risk Fall in past 12 months (25 points). Secondary diagnosis (15 points) impaired mobility, No IV (0 pts). Ambulatory Aid- Crutches/Cane/Walker (15 pts). Gait- Impaired (20 pts.). Mental Status- Oriented to own ability (0 pts). Total Sheldon Fall Scale indicates High Risk Score (45 or more points). Fall prevention measures have been instituted. Side Rails Up X 2 Placed Close to Nursing Station Frequent Obs/Assessments Occuring Family Present and informed to notify staff if the need to leave the bedside As available patient and family educated on Fall Prevention Program and Strategies. Primary Survey: 17:15 NO uncontrolled hemorrhage observed. A: The patient is alert. Airway: patent, No ph supplemental oxygen in use on arrival. Oral cavity: clear, Trachea midline. Breathing/Chest: Respiratory pattern: regular, Respiratory effort: spontaneous, unlabored. Circulation: Skin color: pink, Skin temperature: warm, dry. Disability Alert. Exposure/Environment: There is no evidence of uncontrolled external bleeding. 18:30 Reassessment Airway Airway Patent Breathing/Chest Respiratory pattern Regular ph Respiratory effort Spontaneous Unlabored Circulation Color [place] Temperature Warm Dry Disability Alert. Assessment: 17:15 General: Appears in no apparent distress. comfortable, slender, well groomed, Behavior ph is calm, cooperative, appropriate for age. Pain: Complains of pain in right elbow. Neuro: Level of Consciousness is awake, alert, obeys commands, Oriented to person, place, time, situation. Cardiovascular: Capillary refill < 3 seconds in bilateral fingers Patient's skin is warm and dry. Respiratory: Airway is patent Respiratory effort is even, unlabored. Derm: Skin is intact, is healthy with good turgor, Skin is pink, warm \T\ dry. Musculoskeletal: Swelling present in right elbow. Vital Signs: 17:03 BP 164 / 100; Pulse 79; Resp 17; Temp 97.8(TE); Pulse Ox 98% on R/A; Weight 63.5 kg tw2 (R); Height 5 ft. 5 in. (165.10 cm); Pain 4/10; 18:30 BP 152 / 94; Pulse 70; Resp 18; Temp 97.9; Pulse Ox 98% on R/A; ph 17:03 Body Mass Index 23.30 (63.50 kg, 165.10 cm) tw2 [place] [facility] Coma Score: 17:15 Eye Response: spontaneous(4). Verbal Response: oriented(5). Motor Response: obeys ph commands(6). Total: 15. 18:30 Eye Response: spontaneous(4). Verbal Response: oriented(5). Motor Response: obeys ph commands(6). Total: 15. Trauma Score (Adult): 17:15 Eye Response: spontaneous(1); Verbal Response: oriented(1); Motor Response: obeys ph commands(2); Systolic BP: > 89 mm Hg(4); Respiratory Rate: 10 to 29 per min(4); Edilma Score: 15; Trauma Score: 12 18:30 Eye Response: spontaneous(1); Verbal Response: oriented(1); Motor Response: obeys ph commands(2); Systolic BP: > 89 mm Hg(4); Respiratory Rate: 10 to 29 per min(4); Edilma Score: 15; Trauma Score: 12 ED Course: 16:53 Patient arrived in ED. mr 16:53 Arthur Mac MD is Private Physician. mr 17:05 Triage completed. tw2 17:05 Arm band placed on. tw2 17:09 Vikas Garcia MD is Attending Physician. leicia 17:11 Mariza Corona, AURORA is Primary Nurse. ph 17:15 Patient has correct armband on for positive identification. Bed in low position. Call ph light in reach. Side rails up X 1. Pulse ox on. NIBP on. Door closed. Noise minimized. Warm blanket given. 17:15 Patient maintains SpO2 saturation greater than 95% on room air. Thermoregulation: warm ph blanket given to patient. 18:00 X-ray(s) taken. 18:06 Elbow Right 3 View XRAY In Process Unspecified. EDCA 18:14 Arthur Mac MD is Referral Physician. [facility] 18:14 Damon Smyth MD is Referral Physician. elicia 18:42 No provider procedures requiring assistance completed. Patient did not have IV access ph during this emergency room visit. Sling applied to right arm. Administered Medications: No medications were administered Intake: 17:15 PO: 0ml; Total: 0ml. ph Output: 17:15 Urine: 0ml; Total: 0ml. ph Outcome: 18:14 Discharge ordered by MD. elicia 18:42 Patient left the ED. ph 18:42 Discharged to home via wheelchair, with significant other. ph 18:42 Condition: good 18:42 Discharge instructions given to patient, significant other, Instructed on discharge instructions, follow up and referral plans. medication usage, Demonstrated understanding of instructions, follow-up care, medications, Prescriptions given X 1. 18:42 Patient's length of stay was not longer than 2 hours. ph Signatures: Dispatcher [employer] Noy Day, Vikas Lim RN, MD MD cha Rivera, Blanche mr CoronaMariza RN RN ph Wise, Tara, RN RN tw2 Corrections: (The following items were deleted from the chart) 17:07 17:03 Chief complaint: Spouse and/or significant other states: he has parkinsons and he tw2 fell from standing position, he missed the chair behind him and he fell and landed on the right elbow, so we iced it, it doesn't look too good to us tw2
--- NOTE | 2020-04-23 18:15 | EDPHYS ---
Physician Documentation [facility] Name: Pritesh Salas Age: 70 yrs Sex: Male : 1950 Arrival Date: 04/23/2020 Time: 16:53 Bed 2 Private MD: Arthur Mac V ED Physician Vikas Garcia HPI: 04/23 17:33 This 70 yrs old Male presents to ER via Wheelchair with complaints of elicia Fall Injury. 17:33 Details of fall: The patient fell from an upright position, while walking. Onset: The elicia symptoms/episode began/occurred just prior to arrival. Associated injuries: The patient sustained right elbow. Severity of symptoms: At their worst the symptoms were moderate. The patient has not experienced similar symptoms in the past. Historical: - Allergies: 17:06 Codeine; tw2 - PMHx: 17:06 Parkinsons; tw2 - Immunization history:: Adult Immunizations. - Social history:: Smoking status: . - Immunization history: Last tetanus immunization: unknown. - Family history:: not pertinent. ROS: 17:33 Constitutional: Negative for fever, chills, and weight loss, Eyes: Negative for injury, elicia pain, redness, and discharge, ENT: Negative for injury, pain, and discharge, Neck: Negative for injury, pain, and swelling, Cardiovascular: Negative for chest pain, palpitations, and edema, Respiratory: Negative for shortness of breath, cough, wheezing, and pleuritic chest pain, Abdomen/GI: Negative for abdominal pain, nausea, vomiting, diarrhea, and constipation, Back: Negative for injury and pain, : Negative for injury, bleeding, discharge, and swelling, Skin: Negative for injury, rash, and discoloration, Neuro: Negative for headache, weakness, numbness, tingling, and seizure, Psych: Negative for depression, anxiety, suicide ideation, homicidal ideation, and hallucinations, Allergy/Immunology: Negative for hives, rash, and allergies, Endocrine: Negative for neck swelling, polydipsia, polyuria, polyphagia, and marked weight changes, Hematologic/Lymphatic: Negative for swollen nodes, abnormal bleeding, and unusual bruising. 17:33 MS/extremity: Positive for decreased range of motion, pain, swelling, tenderness, of the right elbow. Exam: 17:33 Constitutional: This is a well developed, well nourished patient who is awake, alert, elicia and in no acute distress. Head/Face: Normocephalic, atraumatic. Eyes: Pupils equal round and reactive to light, extra-ocular motions intact. Lids and lashes normal. Conjunctiva and sclera are non-icteric and not injected. Cornea within normal limits. Periorbital areas with no swelling, redness, or edema. ENT: Nares patent. No nasal discharge, no septal abnormalities noted. Tympanic membranes are normal and external auditory canals are clear. Oropharynx with no redness, swelling, or masses, exudates, or evidence of obstruction, uvula midline. Mucous membranes moist. Neck: Trachea midline, no thyromegaly or masses palpated, and no cervical lymphadenopathy. Supple, full range of motion without nuchal rigidity, or vertebral point tenderness. No Meningismus. Chest/axilla: Normal chest wall appearance and motion. Nontender with no deformity. No lesions are appreciated. Cardiovascular: Regular rate and rhythm with a normal S1 and S2. No gallops, murmurs, or rubs. Normal PMI, no JVD. No pulse deficits. Respiratory: Lungs have equal breath sounds bilaterally, clear to auscultation and percussion. No rales, rhonchi or wheezes noted. No increased work of breathing, no retractions or nasal flaring. Abdomen/GI: Soft, non-tender, with normal bowel sounds. No distension or tympany. No guarding or rebound. No evidence of tenderness throughout. Back: No spinal tenderness. No costovertebral tenderness. Full range of motion. Male : Normal genitalia with no discharge or lesions. Skin: Warm, dry with normal turgor. Normal color with no rashes, no lesions, and no evidence of cellulitis. Neuro: Awake and alert, GCS 15, oriented to person, place, time, and situation. Cranial nerves II-XII grossly intact. Motor strength 5/5 in all extremities. Sensory grossly intact. Cerebellar exam normal. Normal gait. Psych: Awake, alert, with orientation to person, place and time. Behavior, mood, and affect are within normal limits. 17:33 Musculoskeletal/extremity: Extremities: noted in the right elbow: decreased ROM, pain, swelling, tenderness. Vital Signs: 17:03 BP 164 / 100; Pulse 79; Resp 17; Temp 97.8(TE); Pulse Ox 98% on R/A; Weight 63.5 kg tw2 (R); Height 5 ft. 5 in. (165.10 cm); Pain 4/10; 18:30 BP 152 / 94; Pulse 70; Resp 18; Temp 97.9; Pulse Ox 98% on R/A; ph 17:03 Body Mass Index 23.30 (63.50 kg, 165.10 cm) tw2 Edilma Coma Score: 17:15 Eye Response: spontaneous(4). Verbal Response: oriented(5). Motor Response: obeys ph commands(6). Total: 15. 18:30 Eye Response: spontaneous(4). Verbal Response: oriented(5). Motor Response: obeys ph commands(6). Total: 15. Trauma Score (Adult): 17:15 Eye Response: spontaneous(1); Verbal Response: oriented(1); Motor Response: obeys ph commands(2); Systolic BP: > 89 mm Hg(4); Respiratory Rate: 10 to 29 per min(4); [place] Score: 15; Trauma Score: 12 18:30 Eye Response: spontaneous(1); Verbal Response: oriented(1); Motor Response: obeys ph commands(2); Systolic BP: > 89 mm Hg(4); Respiratory Rate: 10 to 29 per min(4); [place] Score: 15; Trauma Score: 12 MDM: 17:[address] [facility] 17:38 Differential diagnosis: contusion, fracture, sprain, strain. Data reviewed: vital elicia signs, nurses notes, radiologic studies, plain films. Data interpreted: vehicle monitor technician: rate is 79 beats/min, Pulse oximetry: on room air is 98 %. Test interpretation: by ED physician or midlevel provider: plain radiologic studies. Counseling: I had a detailed discussion with the patient and/or guardian regarding: the historical points, exam findings, and any diagnostic results supporting the discharge/admit diagnosis, lab results, the need for outpatient follow up, for definitive care, a orthopedic surgeon. Medication response: ibuprofen administration has improved the patient's pain. 18:12 ED course: xraysnegative for fracture , positive [facility] 04/23 17:10 Order name: Elbow Right [address] [facility] 04/23 17:10 Order name: Ice pack; Complete Time: 18:31 elicia 04/23 18:14 Order name: Esau; Complete Time: 18:31 [facility] Administered Medications: No medications were administered Disposition: 04/23/20 18:14 Discharged to Home. Impression: Fall due to bumping against object, Pain in right elbow. - Condition is Stable. - Discharge Instructions: Joint Pain, Musculoskeletal Pain, Cryotherapy, [id number]-Frpl, Fall Prevention in the Home, [id number], Cryotherapy, Joint Pain, Svsa-fr-Mhmp. - Prescriptions for Motrin IB 200 mg Oral Tablet - take 2 tablet by ORAL route every 6 hours As needed as needed with food; 30 tablet. - Medication Reconciliation Form, Thank You Letter, Antibiotic Education, Prescription Opioid Use form. - Follow up: Arthur Mac; When: 2 - 3 days; Reason: Recheck today's complaints, Continuance of care, Re-evaluation by your physician. Follow up: Damon Smyth; When: 2 - 3 days; Reason: Recheck today's complaints, Re-evaluation by your physician. - Problem is new. - Symptoms have improved. Signatures: Dispatcher [employer] EDMS Vikas Garcia MD MD cha Hall, Patricia, RN RN Colette Molina RN RN tw2 Corrections: (The following items were deleted from the chart) 18:42 18:14 04/23/2020 18:14 Discharged to Home. Impression: Fall due to bumping against ph object; Pain in right elbow. Condition is Stable. Discharge Instructions: Joint Pain, Musculoskeletal Pain, Cryotherapy, Kpdr-up-Gijk, Fall Prevention in the Home, Yjdb-in-Nxpc, Cryotherapy, Joint Pain, Xtoa-hc-Boas. Prescriptions for Motrin IB 200 mg Oral Tablet - take 2 tablet by ORAL route every 6 hours As needed as needed with food; 30 tablet. and Forms are Medication Reconciliation Form, Thank You Letter, Antibiotic Education, Prescription Opioid Use. Follow up: Arthur Mac; When: 2 - 3 days; Reason: Recheck today's complaints, Continuance of care, Re-evaluation by your physician. Follow up: Damon Smyth; When: 2 - 3 days; Reason: Recheck today's complaints, Re-evaluation by your physician. Problem is new. Symptoms have improved. [facility]
--- NOTE | 2020-04-23 18:26 | RAD REPORT ---
EXAM DESCRIPTION: RAD - Elbow Right 3 View - 04/23/2020 6:05 pm CLINICAL HISTORY: Pain;Swelling COMPARISON: No comparisons FINDINGS: There is a large amount of soft tissue swelling adjacent to the olecranon. No acute fractu re or dislocation.
[2020-04-23 18:47] VITALS: BP 164/100; TEMP 97.8; O2SAT 98
== END 2020-04-23 18:42 | disposition home or self-care (01) ==
LOC: ER 16:49
DX: M25.521 Pain in right elbow (principal); W18.30XA Fall on same level, unspecified, initial encounter; Y93.89 Activity, other specified; Y92.9 Unspecified place or not applicable; G20 Parkinson's disease; Z88.6 Allergy status to analgesic agent
CPT/HCPCS: 99284

== ENCOUNTER 2021-05-09 01:16 | Emergency (ER) | payer OTHER ==
[2021-05-09] MEDS ORDERED: LIDOCAINE 1% 20 ML MDV ONE (03:30)
[2021-05-09] MEDS ORDERED: TETANUS & DIPHTHERIA TOX,ADULT 0.5 ML VIAL ONE (04:50)
--- NOTE | 2021-05-09 04:52 | EDPHYS ---
Physician Documentation [facility] Name: Pritesh Salas Age: 71 yrs Sex: Male : 1950 Arrival Date: 05/09/2021 Time: 01:19 Bed 20 Private MD: ED Physician Darinel Milligan HPI: 05/09 03:27 This 71 yrs old Male presents to ER via Wheelchair with complaints of mh7 Fall Injury, Laceration. 03:27 Details of fall: The patient fell from an upright position, while walking. Onset: The mh7 symptoms/episode began/occurred just prior to arrival, today. Associated injuries: The patient sustained Right first web space, laceration. Severity of symptoms: At their worst the symptoms were moderate, earlier today, in the emergency department the symptoms are unchanged. Historical: - Allergies: 02:01 Codeine; rr5 - Home Meds: 02:01 Clonazepam Oral [Active]; alendronate oral oral [Active]; Rytary oral oral [Active]; rr5 ropinirole oral oral [Active]; finasteride oral oral [Active]; rivastigmine tartrate oral oral [Active]; duloxetine oral oral [Active]; - PMHx: 02:01 Parkinsons; rr5 - PSHx: 02:01 deep brain stimulator; rr5 - Immunization history:: Adult Immunizations up to date. - Social history:: Smoking status: unknown. ROS: 03:27 Constitutional: Negative for fever, chills, and weight loss, Eyes: Negative for injury, mh7 pain, redness, and discharge, ENT: Negative for injury, pain, and discharge, Neck: Negative for injury, pain, and swelling, Cardiovascular: Negative for chest pain, palpitations, and edema, Respiratory: Negative for shortness of breath, cough, wheezing, and pleuritic chest pain, Abdomen/GI: Negative for abdominal pain, nausea, vomiting, diarrhea, and constipation, Back: Negative for injury and pain, : Negative for injury, bleeding, discharge, and swelling, Neuro: Negative for headache, weakness, numbness, tingling, and seizure, Psych: Negative for depression, anxiety, suicide ideation, homicidal ideation, and hallucinations, Allergy/Immunology: Negative for hives, rash, and allergies, Endocrine: Negative for neck swelling, polydipsia, polyuria, polyphagia, and marked weight changes, Hematologic/Lymphatic: Negative for swollen nodes, abnormal bleeding, and unusual bruising. Exam: 03:27 Constitutional: This is a well developed, well nourished patient who is awake, alert, mh7 and in no acute distress. Head/Face: Normocephalic, atraumatic. Eyes: Pupils equal round and reactive to light, extra-ocular motions intact. Lids and lashes normal. Conjunctiva and sclera are non-icteric and not injected. Cornea within normal limits. Periorbital areas with no swelling, redness, or edema. Neuro: Awake and alert, GCS 15, oriented to person, place, time, and situation. Cranial nerves II-XII grossly intact. Motor strength 5/5 in all extremities. Sensory grossly intact. Cerebellar exam normal. Normal gait. Psych: Awake, alert, with orientation to person, place and time. Behavior, mood, and affect are within normal limits. 03:27 Musculoskeletal/extremity: Extremities: noted in the Right first web space: laceration, mh7 ROM: intact in all extremities, Circulation is intact in all extremities. Sensation intact. Compartment Syndrome exam of affected extremity: is normal. no pain, no numbness, no tingling, no sensation deficit, no palor, no weak pulses, Joints: All joints appear normal with full range of motion. Tendon exam: specific tendon testing normal through active and passive range of motion 03:27 Skin: injury, laceration(s), the wound is approximately 4.5 cm(s), with a depth of 0.5 cm(s), of the Right first web space. Vital Signs: 01:55 BP 130 / 88; Pulse 79; Resp 16; Temp 98.4; Pulse Ox 99% ; Weight 58.97 kg; Height 5 ft. rr5 4 in. (162.56 cm); Pain 5/10; 03:30 BP 126 / 95; Pulse 70; Resp 17; Pulse Ox 98% ; rr5 04:10 BP 131 / 74; Pulse 72; Resp 16; Pulse Ox 98% ; rr5 05:00 BP 133 / 75; Pulse 75; Resp 16; Pulse Ox 98% ; rr5 01:55 Body Mass Index 22.31 (58.97 kg, 162.56 cm) rr5 Laceration: 03:27 Wound Repair of 4.5cm ( 1.8in ) subcutaneous laceration to Right first web space. mh7 Distal neuro/vascular/tendon intact. Anesthesia: Local anesthetic administered with 6 mls of 1% lidocaine. Wound prep: Extensive cleansing with hibiclenz by nurse, Wound irrigation with saline by me, Wound explored extensively, Copious irrigation. Skin closed with 9 3-0 Ethilon using simple sutures and sterile technique. Dressed with Bacitracin, 4x4's. Patient tolerated well. MDM: 03:27 Differential diagnosis: abrasion, contusion, fracture, laceration. Data reviewed: vital [facility] signs, nurses notes, radiologic studies, plain films. Counseling: I had a detailed discussion with the patient and/or guardian regarding: the historical points, exam findings, and any diagnostic results supporting the discharge/admit diagnosis, radiology results, the need for outpatient follow up, to return to the emergency department if symptoms worsen or persist or if there are any questions or concerns that arise at home. Response to treatment: the patient's symptoms have markedly improved after treatment. 04:51 Patient medically screened. 7 05/09 02:02 Order name: Hand Right 3 View XRAY rr5 05/09 03:15 Order name: Prolene, Sutures; Complete Time: 04:32 rr5 05/09 03:15 Order name: Dressing - Wound; Complete Time: 04:32 rr5 05/09 03:15 Order name: Gloves, Sterile; Complete Time: 04:32 rr5 05/09 03:15 Order name: Setup Suture Tray; Complete Time: 04:32 rr5 Administered Medications: 04:31 Drug: Lidocaine (1 %) 10 ml {Note: given by dr. 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 Exp: rr5 01/16/2023. Lot #: [id number]. } Route: IM; Site: left deltoid; 05:00 Follow up: Response: No adverse reaction rr5 Disposition: 05/09/21 04:51 Discharged to Home. Impression: Laceration, Right Hand. - Condition is Stable. - Discharge Instructions: Laceration Care, Adult, Cyex-ab-Romo. - Medication Reconciliation Form, Thank You Letter, Antibiotic Education, Prescription Opioid Use form. - Follow up: Private Physician; When: 1 - 2 days; Reason: Wound Recheck, Worsening of condition, Recheck today's complaints, Continuance of care, Re-evaluation by your physician. Follow up: Emergency Department; When: 48 Hours; Reason: Wound Recheck, Worsening of condition. - Problem is new. - Symptoms have improved. Signatures: Dispatcher [employer] EDID Caleb Eaton RN RN rr5 Darinel Milligan MD MD mh7 Corrections: (The following items were deleted from the chart) 05:03 04:51 05/09/2021 04:51 Discharged to Home. Impression: Laceration, Right Hand. rr5 Condition is Stable. Forms are Medication Reconciliation Form, Thank You Letter, Antibiotic Education, Prescription Opioid Use. Follow up: Private Physician; When: 1 - 2 days; Reason: Wound Recheck, Worsening of condition, Recheck today's complaints, Continuance of care, Re-evaluation by your physician. Follow up: Emergency Department; When: 48 Hours; Reason: Wound Recheck, Worsening of condition. Problem is new. Symptoms have improved. mh7
--- NOTE | 2021-05-09 04:52 | ER ---
Nurse's Notes [facility] Name: Pritseh Salas Age: 71 yrs Sex: Male : 1950 Arrival Date: 05/09/2021 Time: 01:19 Bed 20 Private MD: Diagnosis: Laceration, Right Hand Presentation: 05/09 01:55 Chief complaint: Spouse and/or significant other states: he was holding a cookie jar, rr5 when he turned on the side on standing position he fell down broke the cookie jar and cut his right hand. Coronavirus screen: Client denies travel out of the [place] in the last 14 days. At this time, the client does not indicate any symptoms associated with coronavirus-19. Ebola Screen: Patient negative for fever greater than or equal to 101.5 degrees Fahrenheit, and additional compatible Ebola Virus Disease symptoms Patient denies exposure to infectious person. Patient denies travel to an Ebola-affected area in the 21 days before illness onset. Initial Sepsis Screen: Does the patient meet any 2 criteria? No. Patient's initial sepsis screen is negative. Does the patient have a suspected source of infection? No. Patient's initial sepsis screen is negative. Risk Assessment: Do you want to hurt yourself or someone else? Patient reports no desire to harm self or others. Onset of symptoms was May 09, 2021. 01:55 Method Of Arrival: Wheelchair rr5 01:55 Acuity: WENCESLAO 3 rr5 Historical: - Allergies: 02:01 Codeine; rr5 - Home Meds: 02:01 Clonazepam Oral [Active]; alendronate oral oral [Active]; Rytary oral oral [Active]; rr5 ropinirole oral oral [Active]; finasteride oral oral [Active]; rivastigmine tartrate oral oral [Active]; duloxetine oral oral [Active]; - PMHx: 02:01 Parkinsons; rr5 - PSHx: 02:01 deep brain stimulator; rr5 - Immunization history:: Adult Immunizations up to date. - Social history:: Smoking status: unknown. Screenin:30 Abuse screen: Denies threats or abuse. Denies injuries from another. Nutritional rr5 screening: No deficits noted. Tuberculosis screening: No symptoms or risk factors identified. Fall Risk Fall in past 12 months (25 points). Gait- Impaired (20 pts.). Total Sheldon Fall Scale indicates High Risk Score (45 or more points). Fall prevention measures have been instituted. Side Rails Up X 2 Frequent Obs/Assessments Occuring Family Present and informed to notify staff if the need to leave the bedside As available patient and family educated on Fall Prevention Program and Strategies. Assessment: 02:15 General: Appears in no apparent distress. comfortable, Behavior is calm, cooperative, rr5 appropriate for age. 02:15 Pain: Complains of pain in Right first web space Pain currently is 5 out of 10 on a rr5 pain scale. Quality of pain is described as aching, Pain began suddenly, Is intermittent. Neuro: Level of Consciousness is awake, alert, obeys commands, Oriented to person, place, time. Cardiovascular: Capillary refill < 3 seconds Patient's skin is warm and dry. Respiratory: Airway is patent Respiratory effort is Respiratory pattern is regular, symmetrical. Derm: Skin is intact, is healthy with good turgor, Skin temperature is warm Wound noted Right first web space Wound is lacerated wound. Musculoskeletal: Capillary refill < 3 seconds. 03:30 Reassessment: Patient appears in no apparent distress at this time. Patient is alert, rr5 oriented x 3, equal unlabored respirations, skin warm/dry/pink. awaiting for provider. 04:10 Reassessment: Patient appears in no apparent distress at this time. No changes from rr5 previously documented assessment. Patient is alert, oriented x 3, equal unlabored respirations, skin warm/dry/pink. 05:00 Reassessment: Patient appears in no apparent distress at this time. Patient is alert, rr5 oriented x 3, equal unlabored respirations, skin warm/dry/pink. discharge instruction given and explained without complaints made Patient states symptoms have improved. Vital Signs: 01:55 BP 130 / 88; Pulse 79; Resp 16; Temp 98.4; Pulse Ox 99% ; Weight 58.97 kg; Height 5 ft. rr5 4 in. (162.56 cm); Pain 5/10; 03:30 BP 126 / 95; Pulse 70; Resp 17; Pulse Ox 98% ; rr5 04:10 BP 131 / 74; Pulse 72; Resp 16; Pulse Ox 98% ; rr5 05:00 BP 133 / 75; Pulse 75; Resp 16; Pulse Ox 98% ; rr5 01:55 Body Mass Index 22.31 (58.97 kg, 162.56 cm) rr5 ED Course: 01:19 Patient arrived in ED. 01:43 Caleb Eaton, RN is Primary Nurse. rr5 01:59 Triage completed. rr5 02:01 Arm band placed on right wrist. rr5 02:02 Darinel Milligan MD is Attending Physician. 7 02:22 Hand Right 3 View XRAY In Process Unspecified. EDMS 02:30 Patient has correct armband on for positive identification. Bed in low position. Call rr5 light in reach. Adult w/ patient. Pulse ox on. NIBP on. 02:46 Awaiting ED provider evaluation. rr5 04:33 Assist provider with laceration repair on right hand that was 2.5 cm. or less using rr5 sutures. Set up tray. Performed by Darinel Milligan MD Dressed with 4X4s, Kerlix, Neosporin, Patient tolerated well. 05:02 Patient did not have IV access during this emergency room visit. rr5 Administered Medications: 04:31 Drug: Lidocaine (1 %) 10 ml {Note: given by dr. 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 Exp: rr5 01/16/2023. Lot #: [id number]. } Route: IM; Site: left deltoid; 05:00 Follow up: Response: No adverse reaction rr5 Outcome: 04:51 Discharge ordered by . 7 05:02 Discharged to home via wheelchair, with family. rr5 05:02 Condition: stable 05:02 Discharge instructions given to patient, family, Instructed on discharge instructions, follow up and referral plans. Demonstrated understanding of instructions, follow-up care. 05:03 Patient left the ED. rr5 Signatures: Dispatcher [employer] Sujata Piedra Raymond, RN RN rr5 Darinel Milligan MD MD Bhupendra
[2021-05-09 05:09] VITALS: TEMP 98.4
[2021-05-09 05:10] VITALS: O2SAT 98
[2021-05-09 05:14] VITALS: BP 133/75
--- NOTE | 2021-05-11 10:17 | RAD REPORT ---
EXAM DESCRIPTION: RAD - Hand Right 3 View - 05/09/2021 2:22 am CLINICAL HISTORY: PAIN COMPARISON: None. FINDINGS: 3 views of the right hand. Osteopenia. No acute fracture identified. Atherosclerotic vascu lar calcification. 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 IMPRESSION: 1. No acute fracture. Electronically signed by: Shorty Solano 05/09/2021 4:40 AM CDT Due to temporary technical issues with the PACS/Fluency reporting system, reports are being signed by the in house radiologist without review as a courtesy to ensure prompt reporting. The interpreting r adiologist is fully responsible for the content of the report.
== END 2021-05-09 05:03 | disposition home or self-care (01) ==
LOC: ER 01:16
PROC: 0JQJ0ZZ Repair Right Hand Subcutaneous Tissue and Fascia, Open Approach (ICD-10-PCS; principal; 2021-05-09)
DX: S61.411A Laceration without foreign body of right hand, initial encounter (principal); W19.XXXA Unspecified fall, initial encounter; Y93.01 Activity, walking, marching and hiking; Z23 Encounter for immunization; Z88.5 Allergy status to narcotic agent; G20 Parkinson's disease
CPT/HCPCS: 90471; 90714; 99284

== ENCOUNTER 2023-04-09 01:03 | Emergency (ER) | payer OTHER ==
--- OUTSIDE RECORDS SUMMARY | 2023-04-09 01:34 | XMS REPORT | Continuity of Care Document ---
:1950 Author Organization [facility] t Address [address] [place] [address] [place] [id number] Care Team Providers Name Role Phone Bubba MOON [facility] Primary Care Physician Brandon Wade Attending Clinician Unavailable VERONICA ESQUIVEL Attending Clinician UnavailWALTER Hoff Attending Clinician Unavailable Veronica Khoury Attending Clinician Vaughn Mott Jr Attending Clinician Redd Cary Attending Clinician Vaughn Mott Jr Admitting Clinician Payers Payer Name Policy Type Policy Number Effective Date Expiration Date S lana MEDICARE PART A [id number] 2016 2017 AND B 00:00:00 00:00:00 [employer] MEDICARE [id number] 2022 PPO 00:00:00 A[employer] 53 [id number] 2021 [facility] 00:00:00 - [facility] MEDICARE MB [id number] 2016 [facility] NOVITAS 00:00:00 - [facility] MEDICARE MB [id number] 2016 [facility] NOVITAS 00:00:00 - [facility] Problems Condition Condition Condition Status Onset Resolution Last Treating Co mments Source Name Details Category Date Date Treatment Clinician Date VINOD BROCK Diagnosis Active 2018-02-28 Memoria Active 01-18 05:59:00 l 01/18/2018 00:00: Sai jones [address] VINOD BROCK, Diagnosis Active 2018-02-28 Memoria G20 G20 Active 01-18 05:50:00 l 01/18/2018 00:00: Sai jones [address] PARKINSON Diagnosis Active 2018-02-20 Memoria PARKINSON 12-23 21:59:00 l Active 00:00: [place] 12/23/2017 00 [facility] Left hand Left hand Disease Active Met hodi pain pain 8 st 00:00: Hospita 00 l Closed Closed Disease Active Methodi nondisplac nondisplac 8 st ed ed 00:00: Hospita fracture fracture 00 l of middle of middle phalanx of phalanx of left index left index finger finger REM sleep REM sleep Disease Active 2015-11 Met [facility] behavior behavior 01-11 st disorder disorder 00:00: Hospit a 00 l PARKINSONS PARKINSON Diagnosis Active 2015-112016-12-23 Memoria S Active 01-02 12:06:00 l 11/01/2016 00:00: Sai jones [facility] 00 Parkinson Parkinson Disease Active 2015-11 Met hodi disease disease 12-23 st 00:00: Hospita 00 l Essential Essential Disease Active 2015-11 Met hodi hypertensi hypertensi 12-23 on on 00:00: Hospita 00 l Mixed Mixed Disease Active 2015-11 Methodi hyperlipid hyperlipid 12-23 emia emia 00:00: Hospita 00 l No known No known Disease [facility] active active Health problems problems [id number] 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 Center prior episode [id number] Age Problem Active [facility] related [facility] osteoporos - [facility] is, St unspecifie [facility] Medical pathologic Center al fracture presence [id number] RLS Problem Active Common (restless Spirit legs - CH[facility] syndrome) [facility] [id number] BPH loc w Problem Active Com mon urin Spirit obs/LUTS - [facility] [id number] Other Problem Active Common obstructiv Spirit e and - CHI reflux uropathy [facility] [id number] NANI Problem Active Common (generaliz Spirit ed anxiety - CHI disorder) [facility] Essential Essential Problem 2018-07-06 Memoria (primary) (primary) 20:13:29 l hypertensi hypertensi Manuel ahn on on 07/06/2018 [facility] Hyperlipid Hyperlipi Problem 2018-07-06 Memoria emia, demia, 20:13:29 l unspecifie unspecifie rmann d d 07/06/2018 [facility] USP USP Problem 2018-05-11 Memoria (current) (current) 12:10:06 l use of use of [place] aspirin aspirin 05/11/2018 [facility] 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) (current) Gail mcd[facility] drug drug therapy therapy 05/11/2018 [facility] Hyperchole Hyperchol [facility] esterolemi d 13:06:55 l (disorder) santino jones (disorder) Resolved Problem 06/10/2019 Ev Neuro,[facility] Hypertensi Hypertens Problem Resolve 2019-06-10 Memoria ve manuel d 13:06:55 l disorder, disorder, Herm harry systemic systemic arterial arterial (disorder) (disorder) Resolved Problem 06/10/2019 Ev Neuro,[facility], [facility] PARKINSON' PARKINSON Diagnosis Active 2018-02-28 Memoria S DISEASE 'S DISEASE 05:59:00 l Active Sai jones [facility] History of Past Illness Condition Condition Condition Status Onset Resolution Last Treating Co mments Source Name Details Category Date Date Treatment Clinician Date Parkinson' Parkinson Problem 2018-0 2018-07-06 2018-07-06 Memoria s disease 's disease - 20:13:29 20:13:29 l 03/11/2018 03:15: Sai jones 07/06/2018 27 [facility] Allergies, Adverse Reactions, Alerts Allergy Allergy Status Severity Reaction(s) Onset Inactive Treating Comm ents Source Name Type Date Date Clinician oxyCODON oxyCODON Active Memori a E E l [place] HYDROcod HYDROcod Active Memori a one one l [place] Family History Family Member Diagnosis Comments Start Date Stop Date Source Natural mother No Known Problems Met [facility] Natural father [facility] Social History Social Habit Start Date Stop Date Quantity Comments Source History of Tobacco [facility] Use [facility] Gender identity [facility] Sexual orientation [facility] Exposure to 2022-10-11 2022-10-21 Not sure [facility] SARS-CoV-2 (event) 00:00:00 04:40:00 Tobacco use and 2022-01-07 2022-01-07 Smokeless [facility] exposure 00:00:00 00:00:00 tobacco non-user Social History 2018-01-30 2018-01-30 [facility] ermann 20:28:02 20:28:02 Alcohol intake 2017-07-07 2017-07-07 Current [facility] 00:00:00 00:00:00 non-drinker of Hospital alcohol (finding) History of Social 2016-10-22 2016-10-[address] function 00:00:00 00:00:00 Hospital Sex Ass[birth year] At [birth year] [facility] 00:00:00 00:00:00 Hospital Smoking Status Start Date Stop Date Source Ex-smoker 2022-01-07 00:00:00 2022-01-07 [facility]:00 [facility] tobacco [facility] Medications Ordered Filled Start Stop Current Ordering Indication Dosage Frequency Signature Comments Components Source Medication Medication Date Date Medication? Clinician (SIG) Name Name memantine 2021-11- No [id number] Take 1 UT (Namenda) 5 2-08 06-14 tablet (5 He alth MG tablet 00:00: 04:59 mg total) 00 :00 by mouth 1 (one) time each day for 7 days, THEN 1 tablet (5 mg total) 2 (two) times a day. rOPINIRole 2022- No [id number] 1mg Q.5D TAKE 0.5 UT (Requip) 2 08-09- TABLETS (1 He alth MG tablet 00:00: 04:59 MG TOTAL) 00 :00 BY MOUTH 2 (TWO) TIMES A DAY. amantadine Yes [id number] TAKE 1 U T (Symmetrel) 8-15 TABLET BY [facility] 100 MG 00:00: MOUTH tablet 00 TWICE A DAY clonazePAM 2021- Yes [id number] TAKE 1 U T (KlonoPIN) 7-21 TABLET BY [facility] th 0.5 MG 00:00: MOUTH tablet 00 EVERYDAY AT BEDTIME Tamsulosin Tamsulosin 2022- No 1{capsu QD Tamsulosin HCl 0.4 MG HCl 0.4 MG 05-26 le} HCl 0.4 MG 00:00: 00:00 00 :00 Tamsulosin Tamsulosin 2022- No 1{capsu QD Tamsulosin HCl 0.4 MG HCl 0.4 MG 05-26 le} HCl 0.4 MG 00:00: 00:00 00 :00 Tamsulosin Tamsulosin 2022- No 1{capsu QD Tamsulosin HCl 0.4 MG HCl 0.4 MG 05-26 le} HCl 0.4 MG 00:00: 00:00 00 :00 finasteride 2021-0 Yes [id number] TAKE 1 UT (Proscar) 5 6-06 TABLET BY [facility] MG tablet 00:00: MOUTH 00 EVERY DAY amantadine 2021- No [id number] 100mg Q.5D Take 1 UT (Symmetrel) 5-16 08-15 tablet Healt h 100 MG 00:00: 04:59 (100 mg tablet 00 :00 total) by mouth 2 (two) times a day. Gocovri 137 Yes [id number] 1{capsu Take 1 UT MG capsule 5-03 le} capsule by [facility] sustained-r 00:00: mouth elease 24 00 every hr night. Gocovri 137 2021-2021- No [id number] 1{capsu Take 1 UT MG capsule 5- 10-31 le} capsule by [facility] sustained-r 00:00: 04:59 mouth elease 24 00 :00 every hr night. Gocovri 137 2021- No [id number] 1{capsu Take 1 UT MG capsule 4-06 10-04 le} capsule by [facility] sustained-r 00:00: 04:59 mouth elease 24 00 :00 every hr night. finasteride Yes [id number] TAKE 1 UT (Proscar) 5 4-04 TABLET BY Hea lth MG tablet 00:00: MOUTH 00 EVERY DAY finasteride Yes [id number] TAKE 1 UT (Proscar) 5 4-04 TABLET BY [facility]a lth MG tablet 00:00: MOUTH 00 EVERY DAY Rytary Yes [id number] 3{capsu Q.2D Take 3 UT 36.25-145 2-24 le} capsules Health MG capsule 00:00: by mouth 5 controlled- 00 (five) release times a day. DULoxetine Yes [id number] 60mg QD Take 1 U T (Cymbalta) 2-24 capsule [address] 00:00: (60 mg capsule 00 total) by mouth 1 (one) time each day. carbidopa-l Yes [id number] 1{tbl} Take 1 UT evodopa CR 2-24 tablet by Heal th (Sinemet 00:00: mouth CR) 25-100 00 every MG ER night. tablet Rytary Yes [id number] 3{capsu Q.2D Take 3 UT 36.25-145 2-24 le} capsules Health MG capsule 00:00: by mouth 5 controlled- 00 (five) release times a day. Rytary Yes [id number] 3{capsu Q.2D Take 3 UT 36.25-145 2-24 le} capsules Health MG capsule 00:00: by mouth 5 controlled- 00 (five) release times a day. Rytary Yes [id number] 3{capsu Q.2D Take 3 UT 36.25-145 2-24 le} capsules Health MG capsule 00:00: by mouth 5 controlled- 00 (five) release times a day. rivastigmin 2022- No [id number] 6mg Q.5D Take 1 UT e (Exelon) 2-24 02-25 capsule (6 He alth 6 MG 00:00: 05:59 mg total) capsule 00 :00 by mouth 2 (two) times a day. rivastigmin 2022- No [id number] 6mg Q.5D Take 1 UT e (Exelon) 2-24 02-25 capsule (6 He alth 6 MG 00:00: 05:59 mg total) capsule 00 :00 by mouth 2 (two) times a day. rivastigmin 2022- No [id number] 6mg Q.5D Take 1 UT e (Exelon) 01-07- capsule (6 He alth 6 MG 00:00: 05:59 mg total) capsule 00 :00 by mouth 2 (two) times a day. rivastigmin 2022- No [id number] 6mg Q.5D Take 1 UT e (Exelon) 01-07- capsule (6 He alth 6 MG 00:00: 05:59 mg total) capsule 00 :00 by mouth 2 (two) times a day. rOPINIRole 2021- No [id number] 1mg Q.5D Take 0.5 UT (Requip) 2 - 08-24 tablets (1 He alth MG tablet 00:00: 04:59 mg total) 00 :00 by mouth 2 (two) times a day. DULoxetine 2021- No [id number] 60mg QD Take 1 UT (Cymbalta) 01-07-24 capsule [facility]alt [facility] [address] 00:00: 04:59 (60 mg capsule 00 :00 total) by mouth 1 (one) time each day. carbidopa-l 2021- No [id number] 1{tbl} Take 1 UT evodopa CR 01-07-24 tablet by [facility] (Sinemet 00:00: 04:59 mouth CR) 25-100 00 :00 every MG ER night. tablet Amantadine 2021- No [id number] 1{capsu Take 1 UT HCl ER 2- 08-24 le} capsule by [facility] (Gocovri) 00:00: 04:59 mouth 137 MG 00 :00 every capsule night. sustained-r elease 24 hr rOPINIRole 2021- No 1677 1mg Q.5D Take 0.5 UT (Requip) 2 2-24 08-24 tablets (1 He alth MG tablet 00:00: 04:59 mg total) 00 :00 by mouth 2 (two) times a day. DULoxetine 2021- No [id number] 60mg QD Take 1 UT (Cymbalta) 2-24 08-24 capsule Healt [facility] [address] 00:00: 04:59 (60 mg capsule 00 :00 total) by mouth 1 (one) time each day. carbidopa-l 2021- No [id number] 1{tbl} Take 1 UT evodopa CR 2-24 08-24 tablet by [facility] (Sinemet 00:00: 04:59 mouth CR) 25-100 00 :00 every MG ER night. tablet rOPINIRole 2021- No [id number] 1mg Q.5D Take 0.5 UT (Requip) 2 2-24 08-24 tablets (1 He alth MG tablet 00:00: 04:59 mg total) 00 :00 by mouth 2 (two) times a day. DULoxetine 2021- No [id number] 60mg QD Take 1 UT (Cymbalta) 2-24 08-24 capsule Healt [facility] [address] 00:00: 04:59 (60 mg capsule 00 :00 total) by mouth 1 (one) time each day. carbidopa-l 2021- No [id number] 1{tbl} Take 1 UT evodopa CR 2-24 08-24 tablet by [facility] (Sinemet 00:00: 04:59 mouth CR) 25-100 00 :00 every MG ER night. tablet Amantadine 2021- No [id number] 1{capsu Take 1 UT HCl ER 2-24 -06 le} capsule by [facility] ([facility]) 00:00: 00:00 mouth 137 MG 00 :00 every capsule night. sustained-r elease 24 hr rOPINIRole 2021-0 2022- No [id number] 6mg Take 1 UT XL (Requip 2-23 tablet (6 Hea lth XL) 6 MG 24 00:00: 05:59 mg total) hr tablet 00 :00 by mouth every night. rOPINIRole 2021-0 2022- No [id number] 6mg Take 1 UT XL (Requip 2- 02-23 tablet (6 Hea lth XL) 6 MG 24 00:00: 05:59 mg total) hr tablet 00 :00 by mouth every night. rOPINIRole 2022- No [id number] 6mg Take 1 UT XL (Requip 01-05 tablet (6 Hea lth XL) 6 MG 24 00:00: 05:59 mg total) hr tablet 00 :00 by mouth every night. rOPINIRole 2022- No [id number] 6mg Take 1 UT XL (Requip 01-05 tablet (6 Hea lth XL) 6 MG 24 00:00: 05:59 mg total) hr tablet 00 :00 by mouth every night. amantadine 2021- No [id number] 100mg QD Take 1 UT (Symmetrel) 01-05- tablet Healt h 100 MG 00:00: 04:59 (100 mg tablet 00 :00 total) by mouth 1 (one) time each day. amantadine 2021- No [id number] 100mg QD Take 1 UT (Symmetrel) 01-05- tablet Healt h 100 MG 00:00: 04:59 (100 mg tablet 00 :00 total) by mouth 1 (one) time each day. rOPINIRole 2021- No [id number] 2mg Q.5D Take 1 UT (Requip) 2 01-05- tablet (2 Hea lth MG tablet 00:00: 00:00 mg total) 00 :00 by mouth 2 (two) times a day. rivastigmin 2021- No [id number] 4.5mg Q.5D Take 1 UT e (Exelon) 01-05- capsule Healt h 4.5 MG 00:00: 00:00 (4.5 mg capsule 00 :00 total) by mouth 2 (two) times a day. finasteride Yes 1{tbl} QD Take 1 UT (Proscar) 5 2-09 tablet by Hea lth MG tablet 00:00: mouth 1 00 (one) time each day. carbidopa-l 2021- No 1{tbl} Take 1 U T evodopa CR 2-01 13-24 tablet by Hea lth (Sinemet 00:00: 00:00 mouth CR) 25-100 00 :00 every MG ER night. tablet DULoxetine 2021- No 1{capsu QD Take 1 U T (Cymbalta) 2-03 02-24 le} capsule by He alth [address] 00:00: 00:00 mouth 1 capsule 00 :00 (one) time each day. alendronate 2021-0 Yes 1{tbl} Take 1 UT (Fosamax) 2-02 tablet by Healt h 70 MG 00:00: mouth 1 tablet 00 (one) time per week. alendronate 2021-0 Yes 1{tbl} Take 1 UT (Fosamax) 2-02 tablet by Healt h 70 MG 00:00: mouth 1 tablet 00 (one) time per week. alendronate 2021-0 Yes 1{tbl} Take 1 UT (Fosamax) 2-02 tablet by Healt h 70 MG 00:00: mouth 1 tablet 00 (one) time per week. alendronate 2021-0 Yes 1{tbl} Take 1 UT (Fosamax) 2-02 tablet by Healt h 70 MG 00:00: mouth 1 tablet 00 (one) time per week. Rytary 2021-0 2021- No Take 3 UT 36.25-145 1-25 02-24 caps at Health MG capsule 00:00: 00:00 7:00am, controlled- 00 :00 11:00am, release 4:00pm, and 8:30 pm for insufficie nt ONS, take 2 caps at midnight/b edtime for early AM OFF clonazePAM 2020-0 Yes 1{tbl} Take 1 UT (KlonoPIN) 9-24 tablet by [facility] th 0.5 MG 00:00: mouth tablet 00 every night. clonazePAM 2020-0 Yes 1{tbl} Take 1 UT (KlonoPIN) 9-24 tablet by Heal th 0.5 MG 00:00: mouth tablet 00 every night. clonazePAM 2020-0 Yes 1{tbl} Take 1 UT (KlonoPIN) 9-24 tablet by Heal th 0.5 MG 00:00: mouth tablet 00 every night. Take 1 tablet daily Psyllium 2020-0 Yes 1{scoop QD Take 1 UT (Metamucil) 9-23 } Scoop by [facility] th 28.3 % 00:00: mouth 1 powder 00 (one) time each day. Psyllium 2021-0 Yes 1{scoop QD Take 1 UT (Metamucil) 08-06 } Scoop by [facility] 28.3 % 00:00: mouth 1 powder 00 (one) time each day. Psyllium Yes 1{scoop QD Take 1 UT (Metamucil) 08-06 } Scoop by [facility] 28.3 % 00:00: mouth 1 powder 00 (one) time each day. Psyllium Yes 1{scoop QD Take 1 UT (Metamucil) 08-06 } Scoop by [facility] 28.3 % 00:00: mouth 1 powder 00 (one) time each day. cholecalcif Yes [place] dimitri 06-14 Health (Vitamin 00:00: D-3) 50 MCG (1999) capsule cholecalcif Yes [place] dimitri 06-14 Health (Vitamin 00:00: D-3) 50 MCG (1999) capsule cholecalcif Yes [place] dimitri 06-14 Health (Vitamin 00:00: D-3) 50 MCG (1999) capsule cholecalcif Yes [place] dimitri 06-14 Health (Vitamin 00:00: D-3) 50 MCG (1999) capsule Docusate Yes 100 mg = 1 Mem oria Sodium 100 4-17 cap, PO, l MG Oral 14:43: BID, PRN Sai n Capsule 00 Constipati on, # 20 cap, 0 Refill(s) Cephalexin No 500 mg = 1 M emoria 500 MG Oral 4-17 cap, PO, l Capsule 14:40: TID, X 10 Barb nn [Keflex] 00 day, # 30 cap, 0 Refill(s) tramadol No 50 mg = 1 Bird stella hydrochlori 4-17 tab, PO, l de 50 MG 14:40: Q4H, PRN Barb nn Oral Tablet 00 Pain, X 10 day, # 60 tab, 0 Refill(s) ondansetron No Route: IV, Memoria (ANES) 4-17 Drug form: l 14:18: INJ, ONCE, [place] 00 Stop date: 02/28/18 9:18:00 CDT acetaminoph No Route: IV, Memoria en (ANES) 4-17 Drug form: l 13:58: INJ, ONCE, Stop date: 02/28/18 8:58:00 CDT dexamethaso No Route: IV, Memoria ne (ANES) 4-17 Drug form: l 13:53: INJ, ONCE, Stop date: 02/28/18 8:53:00 CDT ceFAZolin No Route: IV, Me moria (ANES) 4-17 Drug form: l 13:48: INJ, ONCE, Stop date: 02/28/18 8:48:00 CDT Naloxone No Notes: Memoria 4-17 Same as l 13:43: Narcan Flumazenil No Notes: Memor ia 4-17 (Same as: l 13:43: Romazicon) Morphine No Notes: Memoria 4-17 (Same l 13:43: as:MORPhin e Sulfate) Ondansetron No Notes: Bird stella 4-17 (Same as: l 13:43: Zofran) MEDICATION WASTE Product Size: 4 mg Product Wasted: ___ mg Labetalol No 10 mg, 2 Bird stella 4-17 mL, Route: l 13:43: IVP, Drug form: INJ, Q5Min, Dosing Weight 59.091, kg, PRN Elevated BP, Start date: 02/28/18 8:43:00 CDT, Duration: 5 doses or times, Stop date: 03/01/18 0:00:00 CDT Hydralazine No Notes: Bird stella 4-17 (Same as: l 13:43: Apresoline ) Push over 5 minutes lidocaine No Route: IV, Me moria (ANES) 4-17 Drug form: l 13:38: INJ, ONCE, Stop date: 02/28/18 8:38:00 CDT fentaNYL No Route: IV, Mem oria (ANES) 4-17 Drug form: l 13:38: INJ, ONCE, Stop date: 02/28/18 8:38:00 CDT propofol 2017-0 No Route: IV, Mem oria (ANES) 4-17 Drug form: l 13:38: INJ, ONCE, [place] 00 Stop date: 02/28/18 8:38:00 CDT midazolam 2017-0 No Route: IV, Me moria (ANES) 4-17 Drug form: l 13:38: SOLN, [place] 00 ONCE, Stop date: 02/28/18 8:38:00 CDT Lactated No Route: IV, Mem oria Ringers 4-17 Total l Injection 12:45: Volume: Barb nn IV (ANES) 00 1,000, 1000 mL Start date: 02/28/18 7:45:00 CDT, Stop date: 02/28/18 8:45:00 CDT ceFAZolin + No Notes: Bird stella sterile -17 (Same As: l water 20 mL 06:00: Ancef, Herm harry 00 Kefzol) MEDICATION WASTE Product Size: 1000 mg Product Wasted: ___ mg Rytary No Rytary Memoria 23.75 / 95 4-04 23.75 / 95 l mg Capsule 12:00: mg [place] 00 Capsule, 1 capsule, Drug form: MISC, Route: PO, QAM, 02/15/18 7:00:00 CDT, Duration: 30 day, Stop date: 03/16/18 7:00:00 CDT Rytary 2017-0 No Rytary Memoria 36.25 /145 4-04 36.25 /145 l mg Capsule 12:00: mg [place] 00 Capsule, 1 capsule, Drug form: MISC, Route: PO, QAM, 02/15/18 7:00:00 CDT, Duration: 30 day, Stop date: 03/16/18 7:00:00 CDT Rytary 2017-0 No Rytary Memoria 61.25 / 245 4-04 61.25 / l mg Capsule 12:00: 245 mg Barb nn 00 Capsule, 1 capsule, Drug form: MISC, Route: PO, QAM, 02/15/18 7:00:00 CDT, Duration: 30 day, Stop date: 03/16/18 7:00:00 CDT tramadol No 50 mg = 1 Bird stella hydrochlori 4-04 tab, PO, l de 50 MG 10:07: Q6H, PRN Barb nn Oral Tablet 00 Pain, X 10 day, # 40 tab, 0 Refill(s) Docusate Yes 50 mg = 1 Bird stella Sodium 50 4-04 cap, PO, l MG Oral 10:01: BID, PRN Sai n Capsule 00 Constipati on, # 60 cap, 0 Refill(s) Acetaminoph No 1 - 2 tab, Memoria en 300 MG / 4-04 PO, Q6H, l Codeine 10:01: PRN Pain, Barb nn Phosphate 00 X 4 day, # 30 MG Oral 32 tab, 0 Tablet Refill(s) [Tylenol with Codeine #3] Cephalexin No 500 mg = 1 M emoria 500 MG Oral 4-04 cap, PO, l Capsule 10:01: TID, X 10 Barb nn [Keflex] 00 day, # 30 cap, 0 Refill(s) Clonazepam No Notes: Memor ia -04 (Same As: l 02:00: KlonoPIN) Ropinirole No Ropinirole M emoria 8 mg ER -04 8 mg ER l Tablet 01:30: Tablet, 1 Sai n 00 tablet, Drug form: MISC, Route: PO, QPM, 02/14/18 20:30:00 CDT, Duration: 30 day, Stop date: 03/15/18 20:30:00 CDT Rytary No Rytary Memoria 36.25 / 145 - 36.25 / l mg Capsule 01:30: 145 mg Barb nn 00 Capsule, 3 capsules, Drug form: MISC, Route: PO, TID, 02/14/18 20:30:00 CDT, Duration: 30 day, Stop date: 03/16/18 16:00:00 CDT Ancef No Notes: Memoria 4-04 (Same as l 00:00: Ancef) sertraline Yes 25 mg = 1 Me moria 25 mg oral 4-03 tab, PO, l tablet 21:10: Daily, at Sai n 00 5pm, # 30 tab Requip No Notes: Memoria - (Same as: l 21:00: Requip) rOPINIRole Yes 8 mg = 1 Mem oria 8 mg oral 4-03 tab, PO, l tablet, 20:48: BID Keon extended 00 release 8 HR No 3 cap, PO, Memoria Carbidopa 4-03 QID l 36.25 MG / 20:47: Keon Levodopa 00 145 MG Extended Release Oral Capsule [Rytary] Rytary No Rytary Memoria (Carbidopa -03 (Carbidopa l 36.25 mg/ 18:13: 36.25 mg/ Her peterson levodopa 00 levodopa 145 mg) 145 mg), 3 cap, Drug form: MISC, Route: PO, ONCE, 02/14/18 13:13:00 CDT, Stop date: 02/14/18 13:13:00 CDT levETIRAcet No Route: IV, Memoria am (ANES) 02-14 Drug form: l 17:18: INJ, ONCE, Stop date: 02/14/18 12:18:00 CDT Ondansetron No Notes: Bird stella 02-14 (Same as: l 15:47: Zofran) MEDICATION WASTE Product Size: 4 mg Product Wasted: ___ mg Flumazenil No Notes: Memor ia 02-14 (Same as: l 15:47: Romazicon) Naloxone No Notes: Memoria 4- Same as l 15:47: Narcan Fentanyl No Notes: Memoria - (Same as: l 15:47: Sublimaze) Preservati ve free. Hydralazine No Notes: Bird stella 02-14 (Same as: l 15:47: Apresoline ) Push over 5 minutes Labetalol No 10 mg, 2 Bird stella 4-03 mL, Route: l 15:47: IVP, Drug form: INJ, Q5Min, Dosing Weight 60.455, kg, PRN Elevated BP, Start date: 02/14/18 10:47:00 CDT, Duration: 5 doses or times, Stop date: 02/15/18 0:00:00 CDT ceFAZolin No Route: IV, Me moria (ANES) 02-14 Drug form: l 14:48: INJ, ONCE, Stop date: 02/14/18 9:48:00 CDT Saline No Notes: Memoria Flush 0.9% 02-14 (Same as: l 14:00: BD Posiflush) Docusate No Notes: Memoria Sodium 100 02-14 (Same as: l MG Oral 14:00: Colace) Capsule (Do Not Crush) sennosides, No Notes: Bird stella RETIREMENT 02-14 (Same as: l 14:00: Senokot) Carbidopa No 1 tab, Memori a 25 MG / 02-14 Route: PO, l Levodopa 14:00: Drug Form: Her peterson 100 MG Oral 00 TAB, Tablet Dosing Weight 60.455, kg, Daily, Start date: 02/14/18 9:00:00 CDT, Duration: 30 day, Stop date: 03/15/18 9:00:00 CDT Sertraline No Notes: Memor ia 02-14 (Same as: l 14:00: Zoloft) ropinirole No 8 mg, Memori a 02-14 Route: PO, l 14:00: Drug form: ERTAB, Daily, Dosing Weight 60.455, kg, Start date: 02/14/18 9:00:00 CDT, Duration: 30 day, Stop date: 03/15/18 9:00:00 CDT dexmedetomi No Route: IV, Memoria dine (ANES) 02-14 Drug form: l 200 13:33: INJ, Start [place] date: 02/14/18 8:33:00 CDT, Stop date: 02/14/18 9:33:00 CDT fentaNYL No Route: IV, Mem oria (ANES) 02-14 Drug form: l 13:32: INJ, ONCE, [place] 00 Stop date: 02/14/18 8:32:00 CDT Lactated 2017- No Route: IV, Mem oria Ringers - Total l Injection 13:26: Volume: Barb nn IV (ANES) 00 1,000, 1000 mL Start date: 02/14/18 8:26:00 CDT, Stop date: 02/14/18 9:26:00 CDT Regular 2018-0 No 60 units) Bird stella Insulin, 02-14 WASTE: F/P l Human 100 13:24: - Black; E He rmann UNT/ML 00 - Injectable Municipal Solution Trash Bin Stable for 28 days at room temperatur e Expires in days from ____Date Dextrose No 6.25 gm, Memor ia 50% Syringe 02-14 12.5 mL, l 13:24: Route: [place] 00 IVP, Drug Form: INJ, Dosing Weight 60.455, kg, PRN, PRN Abnormal Lab Result, Start date: 02/14/18 8:24:00 CDT, Duration: 30 day, Stop date: 03/16/18 8:23:00 CDT Sodium 2018-0 No 1,000 mL, Memori a Chloride 02-14 Rate: 75 l 0.9% IV 13:22: ml/hr, [place] 1,000 mL 00 Infuse over: 13.3 hr, Route: IV, Dosing Weight 60.455 kg, Total Volume: 1,000, Start date: 02/14/18 8:22:00 CDT, Stop date: 03/16/18 8:21:00 CDT, 1.68, m2 Morphine 2018-0 No Notes: Memoria - (Same l 13:22: as:MORPhin [place] 00 e Sulfate) Insulin No 60 units) Bird stella regular 02-14 WASTE: F/P l 13:22: - Black; E [place] 00 - Municipal Trash Bin Stable for 28 days at room temperatur e Expires in days from ____Date Saline 2018-0 No Notes: Memoria Flush 0.9% - (Same as: l 13:22: BD [place] Posiflush) Ondansetron No Notes: Bird stella - (Same as: l 13:22: Zofran) MEDICATION WASTE Product Size: 4 mg Product Wasted: ___ mg Hydralazine No Notes: Bird stella - (Same as: l 13:21: Apresoline ) Push over 5 minutes Tylenol No Notes: Do Memor ia 02-14 not exceed l 13:21: 4 gm/day. [place] (Same as: Tylenol) Acetaminoph No Notes: Bird stella en 325 MG / 02-14 (Same as: l Hydrocodone 13:21: [place] Barb nn Bitartrate 00 325/5) Do 5 MG Oral not exceed Tablet 4gm/day of [[place] acetaminop 5/325] hen. Labetalol No 10 mg, 2 Bird stella - mL, Route: l 13:21: IVP, Drug form: INJ, Q15Min, Dosing Weight 60.455, kg, PRN Hypertensi on, Start date: 02/14/18 8:21:00 CDT, Duration: 3 doses or times, Stop date: 02/15/18 0:00:00 CDT acetaminoph No Route: IV, Memoria en (ANES) 02-14 Drug form: l 10 mg 12:47: INJ, Start Sai n date: 02/14/18 7:47:00 CDT, Stop date: 02/14/18 8:47:00 CDT ceFAZolin + No Notes: Bird stella sterile 02-14 (Same As: l water 20 mL 07:00: Ancef, Herm harry Kefzol) MEDICATION WASTE Product Size: 1000 mg Product Wasted: ___ mg 8 HR Yes 1 cap, PO, Memoria Carbidopa 3-19 Daily, At l 61.25 MG / 20:18: 0700 [place] Levodopa 00 245 MG Extended Release Oral Capsule [Rytary] Clonazepam Yes 0.5 mg, Bird stella 3-19 PO, l 20:18: Bedtime [place] 00 Fish Oil No 1,200 mg, Bird stella 3-19 PO, Daily l 20:18: Sertraline No 25 mg, PO, M emoria 3-19 Daily l 20:18: multivitami No 1 tab, PO, Memoria n 3-19 Daily l 20:18: 8 HR Yes 3 cap, PO, Memoria Carbidopa 3-19 TID, At l 36.25 MG / 20:18: 1130, Sai n Levodopa 00 1600, 2030 145 MG Extended Release Oral Capsule [Rytary] POLYETHYLEN No 17 gm, PO, Memoria E GLYCOL 3-19 PRN l 3350 20:18: rOPINIRole No 8 mg = 1 Mem oria 8 mg oral 3-19 tab, PO, l tablet, 20:18: Daily, At [facility] nn extended 00 2030 release Tramadol No 50 mg, PO, Mem oria 3-19 PRN, PRN l 20:18: Pain rOPINIRole Yes 2 mg = 1 Mem oria 2 mg oral 3-19 tab, PO, l tablet 20:18: TID, At [place] 00 0700, 1130, 1600 Aspirin No 81 mg, PO, Bird stella 3-19 Daily l 20:18: 8 HR Yes 1 cap, PO, Memoria Carbidopa 3-19 Daily, At l 23.75 MG / 20:18: 0700 [place] Levodopa 95 00 MG Extended Release Oral Capsule [Rytary] [place]-3 No 360 mg =, Memor ia oral 3-19 PO, Daily l capsule 20:18: amlodipine- 2016-11 Yes 1{capsu QD Take 1 M ethodi benazepril 0-03 le} capsule by st (LOTREL 13:17: mouth Hospita 5-10) 5-10 11 daily. l mg per capsule atorvastati 2016-11 Yes 10mg QD Take 10 mg Method[facility] n (LIPITOR) 0-[address] 10 MG 13:17: daily. Hospita tablet 11 l carbidopa-l 2016-11 Yes 1.5{tbl Q.25D Take 1.5 Method[facility] evodopa 0-03 } tablets by st 25-100 mg 13:17: mouth 4 Hospi ta per 11 (four) l disintegrat times a ing tablet day. ON EVENING DOSE PT TAKES 1 TABLET aspirin 2016-11 Yes 81mg QD Take 81 mg Meth juliann (ECOTRIN) 0-[address] 81 MG 13:17: daily. Hospita enteric 11 l coated tablet tadalafil 2016-11 Yes 20mg Take 20 mg Me thodi (CIALIS) 20 0-[address] mg tablet 13:17: as needed. Ho spita 11 l traMADol 2016-11 Yes 50mg Take 50 mg Met hodi (ULTRAM) 50 0-[address] mg tablet 13:17: as needed Hos carly 11 for l moderate pain. amlodipine- 2016-11 Yes 1{capsu QD Take 1 M ethodi benazepril 0-03 le} capsule by st (LOTREL 13:17: mouth [facility]ospita 5-10) 5-10 11 daily. l mg per capsule atorvastati 2016-11 Yes 10mg QD Take 10 mg [facility] n (LIPITOR) 0-[address] 10 MG 13:17: daily. Hospita tablet 11 l carbidopa-l 2016-11 Yes 1.5{tbl Q.25D Take 1.5 Methodi evodopa 0-03 } tablets by st 25-100 mg 13:17: mouth 4 Hospi ta per 11 (four) l disintegrat times a ing tablet day. ON EVENING DOSE PT TAKES 1 TABLET aspirin 2016-11 Yes 81mg QD Take 81 mg Meth juliann (ECOTRIN) 0-[address] 81 MG 13:17: daily. Hospita enteric 11 l coated tablet tadalafil 2016-11 Yes 20mg Take 20 mg Me thodi (CIALIS) 20 0-[address] mg tablet 13:17: as needed. Ho spita 11 l traMADol 2016-11 Yes 50mg Take 50 mg Met hodi (ULTRAM) 50 0-[address] mg tablet 13:17: as needed Hos carly 11 for l moderate pain. amlodipine- 2016-11 Yes 1{capsu QD Take 1 M ethodi benazepril 0-03 le} capsule by st (LOTREL 13:17: mouth [facility]ospita 5-10) 5-10 11 daily. l mg per capsule atorvastati 2016-11 Yes 10mg QD Take 10 mg Methodi n (LIPITOR) 0-[address] 10 MG 13:17: daily. Hospita tablet 11 l carbidopa-l 2016-11 Yes 1.5{tbl Q.25D Take 1.5 Methodi evodopa 0-03 } tablets by st 25-100 mg 13:17: mouth 4 Hospi ta per 11 (four) l disintegrat times a ing tablet day. ON EVENING DOSE PT TAKES 1 TABLET aspirin 2016-11 Yes 81mg QD Take 81 mg Meth juliann (ECOTRIN) 0-[address] 81 MG 13:17: daily. Hospita enteric 11 l coated tablet tadalafil 2016-11 Yes 20mg Take 20 mg Me thodi (CIALIS) 20 0-[address] mg tablet 13:17: as needed. Ho spita 11 l traMADol 2016-11 Yes 50mg Take 50 mg Met hodi (ULTRAM) 50 0-[address] mg tablet 13:17: as needed Hos carly 11 for l moderate pain. baclofen Yes TAKE 1 Methodi (LIORESAL) 6-[address] 10 MG 00:00: MOUTH 3 Hospita tablet 00 TIMES A l DAY baclofen Yes TAKE 1 Methodi (LIORESAL) 6-[address] 10 MG 00:00: MOUTH 3 [facility]ospita tablet 00 TIMES A l DAY baclofen Yes TAKE 1 Methodi (LIORESAL) 6-[address] 10 MG 00:00: MOUTH 3 Hospita tablet 00 TIMES A l DAY rOPINIRole Yes Take 1 Metho di XL (REQUIP 4-[address] XL) 8 MG 24 00:00: mouth Hospi ta hr tablet 00 twice a l day at directed carbidopa-l Yes Take 1 Meth juliann evodopa 4-[address] (SINEMET 00:00: mouth Hospita CR) 50-200 00 twice a l mg per CR day as tablet directed rOPINIRole Yes Take 1 Metho di XL (REQUIP 4-[address] XL) 8 MG 24 00:00: mouth Hospi ta hr tablet 00 twice a l day at directed carbidopa-l Yes Take 1 Meth juliann evodopa 4-[address] (SINEMET 00:00: mouth [facility]ospita CR) 50-200 00 twice a l mg per CR day as tablet directed rOPINIRole Yes Take 1 Metho di XL (REQUIP 4-[address] XL) 8 MG 24 00:00: mouth Hospi ta hr tablet 00 twice a l day at directed carbidopa-l Yes Take 1 Meth juliann evodopa 4-[address] (SINEMET 00:00: mouth Hospita CR) 50-200 00 twice a l mg per CR day as tablet directed rOPINIRole Yes Take 1 Metho di (REQUIP) 4 3-[address] MG tablet 00:00: mouth 4 Hospi ta 00 times a l day as directed carbidopa-l Yes Take 1.5 Me thodi evodopa 3-[address] (SINEMET) 00:00: mouth at Hosp [facility] 25-100 mg 00 630a then l per tablet 1 tab by mouth at 930a 130p 330p 630p and 230a rOPINIRole Yes Take 1 Metho di (REQUIP) 4 3-[address] MG tablet 00:00: mouth 4 Hospi ta 00 times a l day as directed carbidopa-l Yes Take 1.5 Me thodi evodopa 3-[address] (SINEMET) 00:00: mouth at Hosp [facility] 25-100 mg 00 630a then l per tablet 1 tab by mouth at 930a 130p 330p 630p and 230a rOPINIRole Yes Take 1 Metho di (REQUIP) 4 3-[address] MG tablet 00:00: mouth 4 Hospi ta 00 times a l day as directed carbidopa-l Yes Take 1.5 Me thodi evodopa 3-[address] (SINEMET) 00:00: mouth at [facility]osp [facility] 25-100 mg 00 630a then l per tablet 1 tab by mouth at 930a 130p 330p 630p and 230a Rivastigmin Rivastigmin No 2{capsu QD Rivastigmi e Tartrate e Tartrate les_wit ne 4.5 MG 4.5 MG h_food} Tartrate 4.5 MG rOPINIRole rOPINIRole No 1{table QD rOPINIRole HCl ER 6 MG HCl ER 6 MG t} HCl ER 6 MG Alendronate Alendronate No Alendronat Sodium 70 Sodium 70 e Sodium MG MG 70 MG Finasteride Finasteride No 1{table QD Finasterid 5 MG 5 MG t} e 5 MG Vitamin D3 Vitamin D3 No Vitamin D3 rOPINIRole rOPINIRole No QD rOPINIRole HCl 2 MG HCl 2 MG HCl 2 MG Rytary Rytary No 12{caps QD Rytary 36.25-145 36.25-145 ules} 36.25-145 MG MG MG clonazePAM clonazePAM No QD clonazePAM 0.5 MG 0.5 MG 0.5 MG DULoxetine DULoxetine No 1{capsu QD DULoxetine HCl 60 MG HCl 60 MG le} HCl 60 MG Amantadine Amantadine No 1{table QD Amantadine HCl 100 MG HCl 100 MG t} HCl 100 MG Rivastigmin Rivastigmin No 2{capsu QD Rivastigmi e Tartrate e Tartrate les_wit ne 4.5 MG 4.5 MG h_food} Tartrate 4.5 MG rOPINIRole rOPINIRole No 1{table QD rOPINIRole HCl ER 6 MG HCl ER 6 MG t} HCl ER 6 MG Alendronate Alendronate No Alendronat Sodium 70 Sodium 70 e Sodium MG MG 70 MG Finasteride Finasteride No 1{table QD Finasterid 5 MG 5 MG t} e 5 MG Vitamin D3 Vitamin D3 No Vitamin D3 rOPINIRole rOPINIRole No QD rOPINIRole HCl 2 MG HCl 2 MG HCl 2 MG Rytary Rytary No 12{caps QD Rytary 36.25-145 36.25-145 ules} 36.25-145 MG MG MG clonazePAM clonazePAM No QD clonazePAM 0.5 MG 0.5 MG 0.5 MG DULoxetine DULoxetine No 1{capsu QD DULoxetine HCl 60 MG HCl 60 MG le} HCl 60 MG Amantadine Amantadine No 1{table QD Amantadine HCl 100 MG HCl 100 MG t} HCl 100 MG DULoxetine DULoxetine No 1{capsu QD DULoxetine HCl 60 MG HCl 60 MG le} HCl 60 MG rOPINIRole rOPINIRole No 1{table QD rOPINIRole HCl ER 6 MG HCl ER 6 MG t} HCl ER 6 MG Rivastigmin Rivastigmin No 2{capsu QD Rivastigmi e Tartrate e Tartrate les_wit ne 4.5 MG 4.5 MG h_food} Tartrate 4.5 MG Alendronate Alendronate No Alendronat Sodium 70 Sodium 70 e Sodium MG MG 70 MG clonazePAM clonazePAM No QD clonazePAM 0.5 MG 0.5 MG 0.5 MG Rytary Rytary No 12{caps QD Rytary 36.25-145 36.25-145 ules} 36.25-145 MG MG MG rOPINIRole rOPINIRole No QD rOPINIRole HCl 2 MG HCl 2 MG HCl 2 MG Amantadine Amantadine No 1{table QD Amantadine HCl 100 MG HCl 100 MG t} HCl 100 MG Finasteride Finasteride No 1{table QD Finasterid 5 MG 5 MG t} e 5 MG Vitamin D3 Vitamin D3 No Vitamin D3 DULoxetine DULoxetine No 1{capsu QD DULoxetine HCl 60 MG HCl 60 MG le} HCl 60 MG rOPINIRole rOPINIRole No 1{table QD rOPINIRole HCl ER 6 MG HCl ER 6 MG t} HCl ER 6 MG Rivastigmin Rivastigmin No 2{capsu QD Rivastigmi e Tartrate e Tartrate les_wit ne 4.5 MG 4.5 MG h_food} Tartrate 4.5 MG Alendronate Alendronate No Alendronat Sodium 70 Sodium 70 e Sodium MG MG 70 MG clonazePAM clonazePAM No QD clonazePAM 0.5 MG 0.5 MG 0.5 MG Rytary Rytary No 12{caps QD Rytary 36.25-145 36.25-145 ules} 36.25-145 MG MG MG rOPINIRole rOPINIRole No QD rOPINIRole HCl 2 MG HCl 2 MG HCl 2 MG Amantadine Amantadine No 1{table QD Amantadine HCl 100 MG HCl 100 MG t} HCl 100 MG Finasteride Finasteride No 1{table QD Finasterid 5 MG 5 MG t} e 5 MG Vitamin D3 Vitamin D3 No Vitamin D3 DULoxetine DULoxetine No 1{capsu QD DULoxetine HCl 60 MG HCl 60 MG le} HCl 60 MG rOPINIRole rOPINIRole No QD rOPINIRole HCl 2 MG HCl 2 MG HCl 2 MG Rivastigmin Rivastigmin No 2{capsu QD Rivastigmi e Tartrate e Tartrate les_wit ne 4.5 MG 4.5 MG h_food} Tartrate 4.5 MG rOPINIRole rOPINIRole No 1{table QD rOPINIRole HCl ER 6 MG HCl ER 6 MG t} HCl ER 6 MG Rytary Rytary No 12{caps QD Rytary 36.25-145 36.25-145 ules} 36.25-145 MG MG MG Alendronate Alendronate No Alendronat Sodium 70 Sodium 70 e Sodium MG MG 70 MG Vitamin D3 Vitamin D3 No Vitamin D3 Amantadine Amantadine No 1{table QD Amantadine HCl 100 MG HCl 100 MG t} HCl 100 MG Finasteride Finasteride No 1{table QD Finasterid 5 MG 5 MG t} e 5 MG clonazePAM clonazePAM No QD clonazePAM 0.5 MG 0.5 MG 0.5 MG DULoxetine DULoxetine No 1{capsu QD DULoxetine HCl 60 MG HCl 60 MG le} HCl 60 MG rOPINIRole rOPINIRole No 1{table QD rOPINIRole HCl ER 6 MG HCl ER 6 MG t} HCl ER 6 MG Alendronate Alendronate No Alendronat Sodium 70 Sodium 70 e Sodium MG MG 70 MG rOPINIRole rOPINIRole No 2{table QD rOPINIRole HCl 2 MG HCl 2 MG ts} HCl 2 MG Rivastigmin Rivastigmin No 2{capsu QD Rivastigmi e Tartrate e Tartrate les_wit ne 4.5 MG 4.5 MG h_food} Tartrate 4.5 MG Vitamin D3 Vitamin D3 No Vitamin D3 Rytary Rytary No 12{caps QD Rytary 36.25-145 36.25-145 ules} 36.25-145 MG MG MG Amantadine Amantadine No 1{table QD Amantadine HCl 100 MG HCl 100 MG t} HCl 100 MG Finasteride Finasteride No 1{table QD Finasterid 5 MG 5 MG t} e 5 MG clonazePAM clonazePAM No QD clonazePAM 0.5 MG 0.5 MG 0.5 MG DULoxetine DULoxetine No 1{capsu QD DULoxetine HCl 60 MG HCl 60 MG le} HCl 60 MG rOPINIRole rOPINIRole No 1{table QD rOPINIRole HCl ER 6 MG HCl ER 6 MG t} HCl ER 6 MG Alendronate Alendronate No Alendronat Sodium 70 Sodium 70 e Sodium MG MG 70 MG rOPINIRole rOPINIRole No 2{table QD rOPINIRole HCl 2 MG HCl 2 MG ts} HCl 2 MG Rivastigmin Rivastigmin No 2{capsu QD Rivastigmi e Tartrate e Tartrate les_wit ne 4.5 MG 4.5 MG h_food} Tartrate 4.5 MG Vitamin D3 Vitamin D3 No Vitamin D3 Rytary Rytary No 12{caps QD Rytary 36.25-145 36.25-145 ules} 36.25-145 MG MG MG Amantadine Amantadine No 1{table QD Amantadine HCl 100 MG HCl 100 MG t} HCl 100 MG Finasteride Finasteride No 1{table QD Finasterid 5 MG 5 MG t} e 5 MG clonazePAM clonazePAM No QD clonazePAM 0.5 MG 0.5 MG 0.5 MG DULoxetine DULoxetine No 1{capsu QD DULoxetine HCl 60 MG HCl 60 MG le} HCl 60 MG rOPINIRole rOPINIRole No 1{table QD rOPINIRole HCl ER 6 MG HCl ER 6 MG t} HCl ER 6 MG Alendronate Alendronate No Alendronat Sodium 70 Sodium 70 e Sodium MG MG 70 MG rOPINIRole rOPINIRole No 2{table QD rOPINIRole HCl 2 MG HCl 2 MG ts} HCl 2 MG Rivastigmin Rivastigmin No 2{capsu QD Rivastigmi e Tartrate e Tartrate les_wit ne 4.5 MG 4.5 MG h_food} Tartrate 4.5 MG Vitamin D3 Vitamin D3 No Vitamin D3 Rytary Rytary No 12{caps QD Rytary 36.25-145 36.25-145 ules} 36.25-145 MG MG MG Amantadine Amantadine No 1{table QD Amantadine HCl 100 MG HCl 100 MG t} HCl 100 MG Finasteride Finasteride No 1{table QD Finasterid 5 MG 5 MG t} e 5 MG clonazePAM clonazePAM No QD clonazePAM 0.5 MG 0.5 MG 0.5 MG DULoxetine DULoxetine No 1{capsu QD DULoxetine HCl 60 MG HCl 60 MG le} HCl 60 MG rOPINIRole rOPINIRole No 1{table QD rOPINIRole HCl ER 6 MG HCl ER 6 MG t} HCl ER 6 MG Alendronate Alendronate No Alendronat Sodium 70 Sodium 70 e Sodium MG MG 70 MG rOPINIRole rOPINIRole No 2{table QD rOPINIRole HCl 2 MG HCl 2 MG ts} HCl 2 MG Rivastigmin Rivastigmin No 2{capsu QD Rivastigmi e Tartrate e Tartrate les_wit ne 4.5 MG 4.5 MG h_food} Tartrate 4.5 MG Vitamin D3 Vitamin D3 No Vitamin D3 Rytary Rytary No 12{caps QD Rytary 36.25-145 36.25-145 ules} 36.25-145 MG MG MG Amantadine Amantadine No 1{table QD Amantadine HCl 100 MG HCl 100 MG t} HCl 100 MG Finasteride Finasteride No 1{table QD Finasterid 5 MG 5 MG t} e 5 MG clonazePAM clonazePAM No QD clonazePAM 0.5 MG 0.5 MG 0.5 MG Vital Signs Vital Name Observation Time Observation Value Comments Source Systolic blood 2022-10-21 20:31:00 137 mm[facility]Hg[facility] Diastolic blood 2022-10-21 20:31:00 88 mm[Hg] [facility] Heart rate 2022-10-21 20:31:00 81 /min [facility] Body temperature 2022-10-21 20:31:00 [facility].56 [facility] height 2022-10-21 20:31:00 165.1 cm [facility] Body weight 2022-10-21 20:31:[facility] 2022-10-21 20:31:00 22.80 kg/m2 [facility] height 2022-05-26 13:30:00 64 [in_i] [facility] weight 2022-05-26 13:30:00 135.6 [lb_av] [facility] temperature 2022-05-26 13:30:00 98.3 [degF] [facility] bmi 2022-05-26 13:30:00 23.27 kg/m2 [facility] S [facility] oximetry 2022-05-26 13:30:00 99 % [facility] respiratory rate 2022-05-26 13:30:00 16 /min [facility] blood pressure 2022-05-26 13:30:00 125 mm[Hg] [facility] - systolic [facility] blood pressure 2022-05-26 13:30:00 75 mm[Hg] [facility] - diastolic [facility] Body temperature 2022-04-08 15:12:00 36.39 [facility] 2022-04-08 15:12:00 61.236 [facility] BMI 2022-04-08 15:12:00 23.17 [facility] 2022-03-30 08:10:00 64 [in_i] [facility] weight 2022-03-30 08:10:00 140.7 [lb_av] [facility] temperature 2022-03-30 08:10:00 98.4 [degF] [facility] bmi 2022-03-30 08:10:00 24.15 kg/m2 [facility] oximetry 2022-03-30 08:10:00 95 % [facility] respiratory rate 2022-03-30 08:10:00 16 /min Comm on [facility] blood pressure 2022-03-30 08:10:00 108 mm[Hg] [facility] - systolic [facility] blood pressure 2022-03-30 08:10:00 68 mm[Hg] [facility] - diastolic [facility] height 2022-03-30 08:00:00 64 [in_i] [facility] weight 2022-03-30 08:00:00 140.7 [lb_av] [facility] temperature 2022-03-30 08:00:00 98.4 [degF] [facility] bmi 2022-03-30 08:00:00 24.15 kg/m2 [facility] oximetry 2022-03-30 08:00:00 95 % [facility] respiratory rate 2022-03-30 08:00:00 16 /min Comm on [facility] blood pressure 2022-03-30 08:00:00 108 mm[Hg] [facility] - systolic [facility] blood pressure 2022-03-30 08:00:00 68 mm[Hg] [facility] - diastolic [facility] Systolic blood 2022-01-07 19:25:00 111 mm[Hg] [facility] Diastolic blood 2022-01-07 19:25:00 76 mm[Hg] [facility] Heart rate 2022-01-07 19:25:00 90 /min [facility] 2022-01-07 19:25:00 36.78 Danita [facility] height 2022-01-07 19:25:00 162.6 cm [facility] weight 2022-01-07 19:25:00 63.504 [facility] BMI 2022-01-07 19:25:00 24.03 [facility] 2021-09-29 09:10:00 64 [in_i] [facility] weight 2021-09-29 09:10:00 134.1 [lb_av] [facility] temperature 2021-09-29 09:10:00 97.8 [degF] [facility] bmi 2021-09-29 09:10:00 23.02 kg/m2 [facility] oximetry 2021-09-29 09:10:00 96 % [facility] respiratory rate 2021-09-29 09:10:00 16 /min [facility] on [facility] blood pressure 2021-09-29 09:10:00 124 mm[Hg] [facility] - systolic [facility] blood pressure 2021-09-29 09:10:00 80 mm[Hg] [facility] - diastolic [facility] Height 2018-06-16 15:40:00 165.1 cm [facility] Weight 2018-06-16 15:40:00 [facility] BMI Calculated 2018-06-16 15:40:00 [facility] [place] Heart Rate 2018-06-16 15:40:00 [facility] Systolic (mm Hg) 2018-06-16 15:40:00 [facility] [place] Diastolic (mm Hg) 2018-06-16 15:40:00 [facility] [place] BMI Calculated 2018-03-17 15:21:00 [facility] [place] Weight 2018-03-17 15:21:00 [facility] [place] Height 2018-03-17 15:21:00 167.64 cm [facility] [place] Heart Rate 2018-03-17 15:21:00 [facility] [place] Systolic (mm Hg) 2018-03-17 15:21:00 Ibrd [facility] [place] Diastolic (mm Hg) 2018-03-17 15:21:00 Mem orial [place] Systolic (mm Hg) 2018-02-28 15:24:00 Bird rial [place] Diastolic (mm Hg) 2018-02-28 15:24:00 Mem orial [place] Respitory Rate 2018-02-28 14:45:00 Memori al [place] Systolic (mm Hg) 2018-02-28 14:45:00 Bird rial [place] Diastolic (mm Hg) 2018-02-28 14:45:00 [facility] [place] Systolic (mm Hg) 2018-02-28 14:30:00 Bird rial [place] Diastolic (mm Hg) 2018-02-28 14:30:00 Mem orial [place] Respitory Rate 2018-02-28 14:30:00 Memori al [place] Respitory Rate 2018-02-28 14:15:00 [facility] [place] Heart Rate 2018-02-28 11:45:00 [facility] [place] Weight 2018-02-22 15:52:00 [facility] BMI Calculated 2018-02-22 15:52:00 [facility] [place] Height 2018-02-22 15:52:00 167.64 cm [facility] [place] Respitory Rate 2018-02-15 12:41:00 [facility] [place] Systolic (mm Hg) 2018-02-15 12:00:00 Bird rial [place] Diastolic (mm Hg) 2018-02-15 12:00:00 Mem [facility] [place] Temperature Oral (F) 2018-02-15 12:00:00 97.9 F [facility] Systolic (mm Hg) 2018-02-15 11:00:00 Bird [facility] [place] Diastolic (mm Hg) 2018-02-15 11:00:00 [facility] [place] Respitory Rate 2018-02-15 11:00:00 Mem[facility] [place] Respitory Rate 2018-02-15 10:00:00 Mem[facility] al [place] Systolic (mm Hg) 2018-02-15 10:00:00 Bird rial [place] Diastolic (mm Hg) 2018-02-15 10:00:00 Mem [facility]rial [place] Temperature Oral (F) 2018-02-15 05:00:00 98.1 F [facility] Heart Rate 2018-02-14 12:11:00 [facility] Systolic (mm Hg) 2018-02-02 23:45:00 Bird [facility] [place] Diastolic (mm Hg) 2018-02-02 23:45:00 Mem orial [place] Respitory Rate 2018-02-02 23:45:00 [facility] [place] Respitory Rate 2018-02-02 23:30:00 [facility] [place] Systolic (mm Hg) 2018-02-02 23:30:00 Bird [facility] [place] Diastolic (mm Hg) 2018-02-02 23:30:00 [facility] [place] Respitory Rate 2018-02-02 23:15:00 [facility] [place] Systolic (mm Hg) 2018-02-02 23:15:00 Bird [facility] [place] Diastolic (mm Hg) 2018-02-02 23:15:00 Mem orial [place] Heart Rate 2018-02-02 19:15:00 [facility] [place] Height 2018-02-02 18:45:00 165.1 cm [facility] [place] BMI Calculated 2018-02-02 18:45:00 [facility] [place] Weight 2018-02-02 18:45:00 [facility] Heart Rate 2018-01-30 18:48:00 [facility] [place] BMI Calculated 2018-01-30 18:48:00 [facility] [place] Height 2018-01-30 18:48:00 165.1 cm [facility] [place] Weight 2018-01-30 18:48:00 [facility] [place] BMI Calculated 2017-12-16 18:07:00 [facility] [place] Weight 2017-12-16 18:07:00 [facility] Height 2017-12-16 18:07:00 167.64 cm [facility] Systolic (mm Hg) 2017-12-16 18:07:00 [facility] [place] Diastolic (mm Hg) 2017-12-16 18:07:00 [facility] [place] Heart Rate 2017-12-16 18:07:00 [facility] [place] Heart Rate 2016-12-21 21:44:00 [facility] [place] Systolic (mm Hg) 2016-12-21 21:44:00 [facility] [place] Diastolic (mm Hg) 2016-12-21 21:44:00 [facility] [place] Heart Rate 2016-12-14 23:16:00 [facility] Systolic (mm Hg) 2016-12-14 23:16:00 Bird [facility] [place] Diastolic (mm Hg) 2016-12-14 23:16:00 Mem o[facility] [place] Systolic (mm Hg) 2016-12-09 22:12:00 Bird [facility] [place] Diastolic (mm Hg) 2016-12-09 22:12:00 [facility] [place] Heart Rate 2016-12-09 22:12:00 [facility] [place] Procedures Procedure Date / Time Performed Performing Clinician [facility] nicole Open repair of meniscus 2005-11-14 00:00:00 Bird riaallyson [place] Fasciotomy 2002-11-14 00:00:00 [facility] Her peterson ACL - Repair of anterior 1997-11-14 00:00:00 [facility] orial [place] cruciate ligament Deep brain stimulation [facility] Plan of Care Planned Activity Planned Date Details Comments Source Future Scheduled 2023-04-09 COVID-19 VACCINE (#1) [facility] Test 01:22:35 [code = COVID-19 VACCINE (#1)] Future Scheduled 2023-04-09 COLONOSCOPY SCREENING [facility] Test 01:22:35 [code = COLONOSCOPY SCREENING] Future Scheduled 2023-04-09 SHINGLES VACCINES (1 Met [facility] Test 01:22:35 of 2) [code = SHINGLES VACCINES (1 of 2)] Future Scheduled 2023-04-09 65+ [facility] 01:22:35 VACCINE (1 - PCV) [code = 65+ PNEUMOCOCCAL VACCINE (1 - PCV)] Future Scheduled 2023-04-09 [facility]ACCINE [facility] 01:22:35 [code = INFLUENZA VACCINE] Future Scheduled 2022-10-21 HEPATITIS B VACCINES Met [facility] Test 14:27:14 (1 of 3 - 3-dose series) [code = HEPATITIS B VACCINES (1 of 3 - 3-dose series)] Future Scheduled 2022-10-21 COVID-19 VACCINE (#1) [facility] Test 14:27:14 [code = COVID-19 VACCINE (#1)] Future Scheduled 2022-10-21 COLONOSCOPY SCREENING [facility] Test 14:27:14 [code = COLONOSCOPY SCREENING] Future Scheduled 2022-10-21 SHINGLES VACCINES ([address] [facility] Test 14:27:14 of 2) [code = SHINGLES VACCINES (1 of 2)] Future Scheduled 2022-10-21 65[facility]INE (1 - PCV) [code = 65+ PNEUMOCOCCAL VACCINE (1 - PCV)] Future Scheduled 2022-10-21 INFLUENZA VACCINE Method [facility] Test 14:27:14 [code = INFLUENZA VACCINE] Future Scheduled 2022-07-14 HEPATITIS B VACCINES Met [facility] Test 07:15:13 (1 of 3 - 3-dose series) [code = HEPATITIS B VACCINES (1 of 3 - 3-dose series)] Future Scheduled 2022-07-14 COVID-19 VACCINE (#1) [facility] Test 07:15:13 [code = COVID-19 VACCINE (#1)] Future Scheduled 2022-07-14 COLONOSCOPY SCREENING [facility] Test 07:15:13 [code = COLONOSCOPY SCREENING] Future Scheduled 2022-07-14 SHINGLES VACCINES ([address] [facility] Test 07:15:13 of 2) [code = SHINGLES VACCINES (1 of 2)] Future Scheduled 2022-07-14 65+ PNEUMOCOCCAL Method[facility] Test 07:15:13 VACCINE (1 - PCV) [code = 65+ PNEUMOCOCCAL VACCINE (1 - PCV)] Future Scheduled 2022-07-14 INFLUENZA VACCINE Method [facility] Test 07:15:13 [code = INFLUENZA VACCINE] Encounters Start End Encounter Admission Attending Care Care Encounter Source Date/Time Date/Time Type Type Clinicians Facility Department ID 2023-01-21 Outpatient [facility] [id number] [place] 08:22:06 [id number] [facility] 2023-01-18 Outpatient [facility] [id number] [place] 15:42:55 [id number] [facility] 2023-01-17 Outpatient [facility] [id number] [place] 12:05:05 [id number] [facility] 2022-10-22 Outpatient [facility] [id number] [place] 08:37:16 [id number] [facility] 2022-10-21 Outpatient [facility] [id number] [place] 14:24:51 [id number] [facility] 2022-10-18 Outpatient [facility] [id number] [place] 11:00:45 [id number] [facility] 2022-08-25 Outpatient [facility] [id number] [place] 10:17:19 [id number] [facility] 2021-12-09 Outpatient Mauro STLMLC STLMLC [id number] Common 14:13:42 [facility] [id number] [facility] 2023-05-19 2023-05-19 Outpatient ANGIE [facility] [id number] [place] 16:00:00 16:00:00 Lo MCRAE VERONICA 2023-01-21 2023-01-21 Outpatient RADHA, [facility] [id number] [place] 08:30:00 13:09:09 [facility] 2022-10-28 2022-10-28 Outpatient ANGIE [facility] [id number] [place] 12:30:00 12:30:00 Lo MCRAE ema VERONICA 2022-10-21 2022-10-21 Office ANGIE [facility] [id number] [place] 14:30:00 14:30:[address] [id number] [facility] [id number] 2022-07-05 2022-07-05 (WEB) STLMLC STLMLC [id number] Co mmon 00:00:00 00:00:00 [facility] 2022-06-09 2022-06-09 (TEL) STLMLC STLMLC [id number] Co mmon 00:00:00 00:00:00 [facility] 2022-05-26 2022-05-26 OFFICE STLMLC STLMLC [id number] Co mmon 00:00:00 00:00:00 VISIT NEW Spir it PT LEVEL 2 - [facility] 2022-04-08 2022-04-08 Office Angie UTP [id number] [place] 10:00:00 10:30:[address] [id number] Health Veronica [id number] [place] [id number] 2022-03-30 2022-03-30 OFFICE STLMLC STLMLC [id number] Co mmon 00:00:00 00:00:00 VISIT [facility] ESTAB PT - CHI LEVEL 4 [facility] 2022-03-30 2022-03-30 SUB ANNUAL STLMLC STLMLC [id number] Common 00:00:00 00:00:00 MCR [facility] WELLNESS - CHI VISIT [facility] 2022-03-02 2022-03-02 (TEL) STLMLC STLMLC [id number] Co mmon 00:00:00 00:00:00 Spirit - [facility] 2022-02-26 2022-02-26 (TEL) STLMLC STLMLC [id number] Co mmon 00:00:00 00:00:00 [facility] 2022-02-17 2022-02-17 Telephone Angie UTP [id number] [place] 00:00:00 00:00:00 Stimming, KATHLEEN ST [id number] Health Veronica [id number] [place] [id number] 2022-01-07 2022-01-07 Office Angie UTP [id number] [place] 13:00:00 15:25:[address] [id number] Health Veronica [id number] [place] [id number] 2021-09-29 2021-09-29 OFFICE STLMLC STLMLC [id number] Co mmon 00:00:00 00:00:00 VISIT NEW Spir it PT LEVEL 4 - [facility] 2021-09-29 2021-09-29 (TEL) STLC STLMLC [id number] Co mmon 00:00:00 00:00:00 [facility] 2018-11-08 2018-11-21 Recurring nullFlavo TIRR [id number] Memoria 19:22:34 17:00:00 r [facility] 01 allyson Keon Reynoldsann 2018-11-08 2018-11-21 Outpatient Angie-Stimmi MHTIRR MHTIRR [id number] 13:22:34 11:00:00 Veronica ontiveros Alice 2018-06-16 2018-06-17 Outpatient nullFlavo MNA [id number] Memoria 14:30:00 04:59:59 r Neurosurger 05 l y [facility] 2018-06-16 2018-06-16 Outpatient Tiera MHMISCHER MHMISCHER [id number] 09:30:00 23:59:59 Vaughn Jose Luis 2018-06-16 2018-06-16 Outpatient MHIE MHIE [id number] Memoria 09:30:00 09:30:00 05 allyson [place] 2018-03-17 2018-03-18 Outpatient nullFlavo MNA [id number] Memoria 14:45:00 04:59:59 r Neurosurger 04 l y [facility] 2018-03-17 2018-03-17 Outpatient COLETTE MottMISCHER MHMISCHER [id number] 09:45:00 23:59:59 Vaughn Jose Luis 2018-03-17 2018-03-17 Outpatient MHIE MHIE [id number] Memoria 09:45:00 09:45:00 allyson [place] 2018-03-02 2018-03-04 Phone nullFlavo MNA [id number] Memoria 18:27:00 04:59:59 Message r Neurosurger 09 l y [facility] 2018-03-02 2018-03-03 Outpatient MHMISCHER MHMISCHER [id number] 13:27:00 23:59:59 09 2018-02-28 2018-03-01 Outpatient nullFlavo MNA [id number] Memoria 13:15:00 04:59:59 r Neurosurger 03 l y [facility] 2018-02-28 2018-03-01 Day nullFlavo [facility] [id number] Memoria 10:51:00 04:59:00 Surgery r [place] 03 [facility] 2018-02-28 2018-02-28 Outpatient GLORIA MottSCHER MISCHER [id number] 08:15:00 23:59:59 Vaughn Amaya 2018-02-28 2018-02-28 Outpatient Tiera [facility] [id number] 05:51:00 23:59:00 Vaughn Amaya 2018-02-28 2018-02-28 Outpatient Tiera [facility] [id number] 05:51:00 23:59:00 Vaughn Amaya 2018-02-28 2018-02-28 Outpatient MHIE MHIE [id number] Memoria 08:15:00 08:15:00 03 [facility] 2018-02-14 2018-02-15 Inpatient nullFlavo [facility] [id number] Memoria 11:02:00 15:45:00 r Keon [facility] 2018-02-14 2018-02-15 Outpatient Tiera [facility] [id number] 06:02:00 10:45:00 Vaughn Amaya 2018-02-14 2018-02-15 Outpatient nullFlavo MNA [id number] Memoria 13:00:00 04:59:59 r Neurosurger 02 allyson [place] [facility] 2018-02-14 2018-02-14 Outpatient GLORIA MottSCHER MISCHER [id number] 08:00:00 23:59:59 Vaughn John 2018-02-14 2018-02-14 Outpatient MHIE DEONTE [id number] Memoria 08:00:00 08:00:00 02 [facility] 2018-02-02 2018-02-03 Day nullFlavo [facility] [id number] Memoria 18:33:00 04:59:00 Surgery r [place] 02 [facility] 2018-02-02 2018-02-02 Outpatient Tiera [facility] [id number] 13:33:00 23:59:00 Vaughn Jose Luis 2018-01-16 2018-01-18 Phone nullFlavo MNA [id number] Memoria 19:22:00 05:59:59 Message r Neurosurger 08 allyson [place] [facility] 2018-01-16 2018-01-18 Phone nullFlavo MNA [id number] Memoria 19:15:00 05:59:59 Message r Neurosurger [address] [facility] 2018-01-16 2018-01-17 Outpatient MHMISCHER MHMISCHER [id number] 13:22:00 23:59:59 08 2018-01-16 2018-01-17 Outpatient MHMISCHER MHMISCHER [id number] 13:22:00 23:59:59 08 2018-01-16 2018-01-17 Outpatient MHMISCHER MHMISCHER [id number] 13:15:00 23:59:59 07 2018-01-16 2018-01-17 Outpatient MHMISCHER MHMISCHER [id number] 13:15:00 23:59:59 07 2017-12-16 2017-12-18 Phone nullFlavo MNA [id number] Memoria 22:48:00 05:59:59 Message r Neuroscienc 06 l e [facility] 2017-12-16 2017-12-18 Phone nullFlavo MNA [id number] Memoria 22:39:00 05:59:59 Message r Neurosurger [address] [facility] 2017-12-16 2017-12-17 Outpatient MHMISCHER MHMISCHER [id number] 16:48:00 23:59:59 06 2017-12-16 2017-12-17 Outpatient MHMISCHER MHMISCHER [id number] 16:39:00 23:59:59 05 2017-12-16 2017-12-17 Outpatient nullFlavo MNA [id number] Memoria 15:30:00 05:59:59 r Neurosurger 01 l eligio [facility] 2017-12-16 2017-12-16 Outpatient Fenoy, MHMISCHER MHMISCHER [id number] 09:30:00 23:59:59 Vaughn Amaya 2017-12-16 2017-12-16 Outpatient MHIE MHIE [id number] Memoria 09:30:00 09:30:00 allyson [place] 2017-11-22 2017-11-24 Phone nullFlavo MNA [id number] Memoria 19:35:00 05:59:59 Message r Neurosurger 04 l y [facility] 2017-11-22 2017-11-23 Outpatient MHMISCHER MHMISCHER [id number] 13:35:00 23:59:59 04 2017-11-17 2017-11-19 Phone nullFlavo MNA [id number] Memoria 20:01:00 05:59:59 Message r Neurosurger [address] [facility] 2017-11-17 2017-11-18 Outpatient MHMISCHER MHMISCHER [id number] 14:01:00 23:59:59 03 2017-10-21 2017-10-21 Ambulatory nullFlavo MNA [id number] Memoria 15:30:00 15:30:00 Pre-Reg r Neurosurger 00 l y [facility] 2017-10-21 2017-10-21 Outpatient Tiera, MHMISCHER MHMISCHER [id number] 09:30:00 09:30:00 Vaughn Jose Luis 00 2016-12-22 2017-01-21 Tots nullFlavo TIRR [id number] Memoria 14:00:00 05:59:00 Therapy r [facility] 00 l [facility] 2016-12-22 2017-01-20 Outpatient [place], Redd MHTIRR MHTIRR [id number] 08:00:00 23:59:00 C 00 2016-11-22 2016-12-22 Tots nullFlavo TIRR [id number] Memoria 14:00:00 05:59:00 Therapy r [facility] 00 l Keon Keon 2016-11-22 2016-12-21 Outpatient Redd [place] MHTIRR MHTIRR [id number] 08:00:00 23:59:00 C 00 Results Test Description Test Time Test Comments Results Result Comments Source BLOOD BANK RESULTS 2018-02-28 11:40:00 Test Item Value Reference Range Interpretation Comme nts Antibody Scrn (test code = Antibody Scrn) Negative (02/28/18 6:40 AM ) [facility] BANK [id number] 11:40:00 Test Item Value Reference Range Interpretation Comments ABO/Rh (test code = ABO/Rh) [facility]isKGXHIKLONOIY2789-17-55 11:40:00 Test Item Value Reference Range Interpretation Comments AGAP (test code = AGAP) 12.3 10.0-20.0 [facility]grBWJVXUYYKEOD0879-86-91 11:40:00 Test Item Value Reference Range Interpretation Comments B/C Ratio (test code = B/C Ratio) 15 1 6-25 [facility]HbgsqtgORAYTWLHYVAF5652-44-82 11:40:00 Test Item Value Reference Range Interpretation Comments Globulin (test code = Globulin) 3.9 2.7-4.2 [facility] HospitalDkhofqoNMMWFXGRFCRP6745-64-25 11:40:00 Test Item Value Reference Range Interpretation Comments A/G Ratio (test code = A/G Ratio) 0.7 1 0.7-1.6 [facility] HospitalDjfltreAPZIBUWKYUPZ5523-49-43 11:40:00 Test Item Value Reference Range Interpretation Comments Calcium Lvl (test code = Calcium Lvl) 8.8 8.5-10.5 [facility] HospitalSiyuwxrLVGIGRRNEDKK1900-85-79 11:40:00 Test Item Value Reference Range Interpretation Comments Albumin Lvl (test code = Albumin Lvl) 2.9 3.5-5.0 [facility] HospitalZwgodjxDJNMKCSOPWKA1848-29-62 11:40:00 Test Item Value Reference Range Interpretation Comments Total Protein (test code = Total 6.8 6.4-8.4 Protein) [facility] HospitalPyntlgxPGZQSRKVZFRZ9003-57-69 11:40:00 Test Item Value Reference Range Interpretation Comments ALT (test code = ALT) 9 See_Comment [Auto mated message] The system which ge nerated this result transmit veronika reference range : <=65. The reference range was not used to interpr et this result as susan l/abnormal. [facility] HospitalCoiljwcROXDYJDMIRRB6284-56-00 11:40:00 Test Item Value Reference Range Interpretation Comments Alk Phos (test code = Alk Phos) 74 39-136 [facility] HospitalUsslppvKQGDLNRNVLVZ1283-76-21 11:40:00 Test Item Value Reference Range Interpretation Comments AST (test code = AST) 22 See_Comment [Auto mated message] The system which ge nerated this result transmit veronika reference range : <=37. The reference range was not used to interpr et this result as susan l/abnormal. [facility] HospitalVjgucvfKITXQHNXJJIA2459-30-94 11:40:00 Test Item Value Reference Range Interpretation Comments Bili Total (test code = Bili Total) 0.5 0.2-1.3 [facility] HospitalDhoxaegNXSSQUBFLCFY1345-06-70 11:40:00 Test Item Value Reference Range Interpretation Comments BUN (test code = BUN) 10 7-22 [facility] HospitalYrzoekiALRKTDFXZGCO2250-74-53 11:40:00 Test Item Value Reference Range Interpretation Comments Glucose Lvl (test code = Glucose Lvl) 110 70-99 [facility] HospitalKxvkunqTEJDAMTMDKPH5657-16-71 11:40:00 Test Item Value Reference Range Interpretation Comments Creatinine Lvl (test code = Creatinine 0.68 0.50-1.40 Lvl) [facility] HospitalIknnxvwAHLYBWNSUITS6880-35-66 11:40:00 Test Item Value Reference Range Interpretation Comments Sodium Lvl (test code = Sodium Lvl) 139 135-145 [facility] HospitalYprbqbaGSEKKKAUOLDI4274-43-78 11:40:00 Test Item Value Reference Range Interpretation Comments Potassium Lvl (test code = Potassium 4.3 3.5-5.1 Lvl) [facility] HospitalXcnblgnSNPRMYOTQRPS5911-57-10 11:40:00 Test Item Value Reference Range Interpretation Comments CO2 (test code = CO2) 29 24-32 [facility] HospitalZydiqcoNHUECSAKOZOD2322-84-50 11:40:00 Test Item Value Reference Range Interpretation Comments Chloride Lvl (test code = Chloride Lvl) 102 95-109 [facility] HospitalZtzgmstUADSAPWOHXTW7511-84-48 11:40:00 Test Item Value Reference Range Interpretation Comments eGFR (test code = eGFR) 99 [facility] CenterDjydpzfQOIMRPEXNH4038-96-03 11:40:00 Test Item Value Reference Range Interpretation Comments INR (test code = INR) 1.09 1 0.85-1.17 [facility] CenterTsxvkqsXTAGXBGDHG2980-81-89 11:40:00 Test Item Value Reference Range Interpretation Comments PTT (test code = PTT) 35.2 s 22.9-35.8 [facility] CenterJdomcvxKWBRWDHPOH2607-72-58 11:40:00 Test Item Value Reference Range Interpretation Comments PT (test code = PT) 14.1 s 12.0-14.7 [facility] CenterKgioxqdVBBXKBTEMN0720-27-60 11:40:00 Test Item Value Reference Range Interpretation Comments Basophils # (test code 0.1 See_Comment [Aut omated message] The = Basophils #) system which generated this result tra nsmitted reference range : <=0.2. The reference r paul was not used to int erpret this result as normal/abnormal . [facility] CenterMtlwdizSASAJNATKM2697-24-31 11:40:00 Test Item Value Reference Range Interpretation Comments Eosinophils # (test code 0.3 See_Comment [A utomated message] The = Eosinophils #) system whic h generated this result tra nsmitted reference range : <=0.5. The reference r paul was not used to int erpret this result as normal/abnormal . [facility] CenterGhxdtdkBDRYZHVUPA7779-08-33 11:40:00 Test Item Value Reference Range Interpretation Comments Monocytes # (test code 0.6 See_Comment [Aut omated message] The = Monocytes #) system which generated this result tra nsmitted reference range : <=0.8. The reference r paul was not used to int erpret this result as normal/abnormal . [facility] CenterIgcwhqxFOKTURPTFB7870-45-66 11:40:00 Test Item Value Reference Range Interpretation Comments Lymphocytes # (test code = Lymphocytes 1.1 1.0-5.5 #) [facility] CenterMhjhokrJRXVBXEKKD0977-53-13 11:40:00 Test Item Value Reference Range Interpretation Comments Segs-Bands # (test code = Segs-Bands #) 6.1 1.5-8.1 [facility] CenterLwdhiihJLSKXPDEWS8017-61-21 11:40:00 Test Item Value Reference Range Interpretation Comments Basophils (test code = 0.7 See_Comment [Aut omated message] The Basophils) system which ge nerated this result tra nsmitted reference range : <=1.0. The reference r paul was not used to int erpret this result as normal/abnormal . [facility] CenterUdtemtcGQTACCMSYU1907-58-23 11:40:00 Test Item Value Reference Range Interpretation Comments Eosinophils (test code = 3.8 See_Comment [A utomated message] The Eosinophils) system which ge nerated this result tra nsmitted reference range : <=4.0. The reference r paul was not used to int erpret this result as normal/abnormal . [facility] CenterYeiopulUWBQKLUKFX5352-50-36 11:40:00 Test Item Value Reference Range Interpretation Comments Monocytes (test code = Monocytes) 6.8 2.0-12.0 [facility] CenterLihezlwSHIVXSMZVM7788-19-33 11:40:00 Test Item Value Reference Range Interpretation Comments Lymphocytes (test code = Lymphocytes) 13.8 20.0-40.0 [facility] CenterLjypkmaDXEMAKTGFX7645-35-59 11:40:00 Test Item Value Reference Range Interpretation Comments Segs (test code = Segs) 74.9 45.0-75.0 [facility] CenterXzsautbWLLQFLCIKM9896-57-84 11:40:00 Test Item Value Reference Range Interpretation Comments MPV (test code = MPV) 7.9 7.4-10.4 [facility] CenterNwdzebrCKRUESZHER0835-95-96 11:40:00 Test Item Value Reference Range Interpretation Comments RDW (test code = RDW) 13.3 11.5-14.5 [facility] CenterQxnxlamNSZIJTRNKS8603-99-50 11:40:00 Test Item Value Reference Range Interpretation Comments MCHC (test code = MCHC) 34.1 32.0-36.0 [facility] CenterMhgzfmfOVSQAMOPMA4787-61-28 11:40:00 Test Item Value Reference Range Interpretation Comments MCV (test code = MCV) 94.9 80.0-94.0 [facility] CenterZpuvyqqPOWVDLROZM0146-90-13 11:40:00 Test Item Value Reference Range Interpretation Comments Hct (test code = Hct) 40.1 42.0-54.0 [facility] CenterRystmugAIURQGUPGX4411-15-04 11:40:00 Test Item Value Reference Range Interpretation Comments Platelet (test code = Platelet) 253 133-450 [facility] CenterJyxxrzhTCCEHXHAPV7218-23-07 11:40:00 Test Item Value Reference Range Interpretation Comments MCH (test code = MCH) 32.3 pg 27.0-31.0 [facility] CenterPtjccfuHZNEOGXZQF8577-88-77 11:40:00 Test Item Value Reference Range Interpretation Comments RBC (test code = RBC) 4.22 4.70-6.10 [facility] CenterOofvykcALNXETYTMP2361-36-03 11:40:00 Test Item Value Reference Range Interpretation Comments Hgb (test code = Hgb) 13.7 14.0-18.0 [facility] CenterAxzngjkVUTSLBTAQW0901-50-98 11:40:00 Test Item Value Reference Range Interpretation Comments WBC (test code = WBC) 8.2 3.7-10.4 [facility] XTPUHBP7705-06-60 11:57:00 Test Item Value Reference Range Interpretation Comments Antibody Scrn (test Negative (02/14/18 6:57 code = Antibody Scrn) AM) [facility] CAFLXLA6848-55-11 11:57:00 Test Item Value Reference Range Interpretation Comments ABO/Rh (test code = ABO/Rh) O POS [facility]AvrrjwdRRBFFDTLTJWO4794-15-07 19:10:00 Test Item Value Reference Range Interpretation Comments AGAP (test code = AGAP) 10.5 10.0-20.0 [facility] HospitalWokvlimRKIGEPINJARW0412-65-34 19:10:00 Test Item Value Reference Range Interpretation Comments eGFR (test code = eGFR) 101 [facility] HospitalEeyqmkxXXLSNMQFSCPE6616-89-01 19:10:00 Test Item Value Reference Range Interpretation Comments Glucose Lvl (test code = Glucose Lvl) 74 70-99 [facility] HospitalLccozweETXWDHWQTIPM9694-48-17 19:10:00 Test Item Value Reference Range Interpretation Comments CO2 (test code = CO2) 32 24-32 [facility] HospitalSlcdhsbDUNCDLQFISNW1978-90-76 19:10:00 Test Item Value Reference Range Interpretation Comments Calcium Lvl (test code = Calcium Lvl) 9.0 8.5-10.5 [facility] HospitalWbluexoRNNKVNVSDMXC7005-47-97 19:10:00 Test Item Value Reference Range Interpretation Comments BUN (test code = BUN) 9 7-22 [facility] HospitalZrlltnbYSTDVZEULJQF4952-46-19 19:10:00 Test Item Value Reference Range Interpretation Comments Chloride Lvl (test code = Chloride Lvl) 102 95-109 [facility] HospitalLhmszqoVOCZVBSIPDDH4521-29-00 19:10:00 Test Item Value Reference Range Interpretation Comments Creatinine Lvl (test code = Creatinine 0.65 0.50-1.40 Lvl) [facility] HospitalVmnjbbdMUPHDZKREWNK1098-12-61 19:10:00 Test Item Value Reference Range Interpretation Comments Sodium Lvl (test code = Sodium Lvl) 140 135-145 [facility] HospitalGdaxzlfUTHLGLXNQNSQ4642-36-69 19:10:00 Test Item Value Reference Range Interpretation Comments Potassium Lvl (test code = Potassium 4.5 3.5-5.1 Lvl) [facility] CenterSmuxbxpKJOTLBWTGR2523-96-09 19:10:00 Test Item Value Reference Range Interpretation Comments PTT (test code = PTT) 36.6 s 22.9-35.8 [facility] CenterQwgncaaLQAGHMNYVP3275-56-21 19:10:00 Test Item Value Reference Range Interpretation Comments PT (test code = PT) 13.9 s 12.0-14.7 [facility] CenterHzkxxbzIODTXDEVNQ8411-71-79 19:10:00 Test Item Value Reference Range Interpretation Comments INR (test code = INR) 1.07 1 0.85-1.17 [place] 995868-03-19 19:10:00 Test Item Value Reference Range Interpretation Comments WBC (test code = WBC) 6.0 3.7-10.4 [facility] CenterWpwsdxeDOLTBSVQYU7495-70-56 19:10:00 Test Item Value Reference Range Interpretation Comments Platelet (test code = Platelet) 212 133-450 [facility] CenterWvdxwalNUYTNDBCUQ3994-37-41 19:10:00 Test Item Value Reference Range Interpretation Comments MPV (test code = MPV) 8.1 7.4-10.4 [facility] CenterNweouwkVODXGXGRBX0110-71-52 19:10:00 Test Item Value Reference Range Interpretation Comments MCHC (test code = MCHC) 33.2 32.0-36.0 [facility] CenterIkyupkbIWHAQBMMTL5182-98-92 19:10:00 Test Item Value Reference Range Interpretation Comments Hgb (test code = Hgb) 14.4 14.0-18.0 [facility] CenterEqbaxphOXOEGJUVGN5640-35-59 19:10:00 Test Item Value Reference Range Interpretation Comments RDW (test code = RDW) 13.4 11.5-14.5 [facility] CenterGmbsvkgKKTETJSYDK3683-37-83 19:10:00 Test Item Value Reference Range Interpretation Comments MCH (test code = MCH) 32.0 pg 27.0-31.0 [facility] CenterHhmuurfIBCEPHYPAU8978-01-21 19:10:00 Test Item Value Reference Range Interpretation Comments Hct (test code = Hct) 43.5 42.0-54.0 [facility] CenterXsswseuLIDQEFHPGM6502-91-09 19:10:00 Test Item Value Reference Range Interpretation Comments MCV (test code = MCV) 96.2 80.0-94.0 [facility] CenterBkqyulqFWPQZHEWIA9251-62-86 19:10:00 Test Item Value Reference Range Interpretation Comments RBC (test code = RBC) 4.52 4.70-6.10 [facility] CenterFxywswiSKZYBUWMKK2757-88-97 19:10:00 Test Item Value Reference Range Interpretation Comments Segs (test code = Segs) 57.4 45.0-75.0 [facility] CenterKiyiypvDELERZOWUJ1026-60-95 19:10:00 Test Item Value Reference Range Interpretation Comments Lymphocytes # (test code = Lymphocytes 1.8 1.0-5.5 #) [facility] CenterLedpglwHMCAKFLOMP0282-75-54 19:10:00 Test Item Value Reference Range Interpretation Comments Monocytes # (test code 0.4 See_Comment [Aut omated message] The = Monocytes #) system which generated this result tra nsmitted reference range : <=0.8. The reference r paul was not used to int erpret this result as normal/abnormal . [facility] CenterZsfedtnDNWZEGEPQZ5370-75-02 19:10:00 Test Item Value Reference Range Interpretation Comments Lymphocytes (test code = Lymphocytes) 30.3 20.0-40.0 [facility] CenterOekvcacMWETLLJARI1015-41-57 19:10:00 Test Item Value Reference Range Interpretation Comments Monocytes (test code = Monocytes) 7.1 2.0-12.0 [facility] CenterTtysvlgFREXFITHRA4732-41-90 19:10:00 Test Item Value Reference Range Interpretation Comments Eosinophils (test code = 4.3 See_Comment [A utomated message] The Eosinophils) system which ge nerated this result tra nsmitted reference range : <=4.0. The reference r paul was not used to int erpret this result as normal/abnormal . [facility] CenterZdkkkwyQXIBRHDHHS1560-44-50 19:10:00 Test Item Value Reference Range Interpretation Comments Eosinophils # (test code 0.3 See_Comment [A utomated message] The = Eosinophils #) system [facility] h generated this result tra nsmitted reference range : <=0.5. The reference r paul was not used to int erpret this result as normal/abnormal . [facility] CenterQloquexIXMWPBANWZ3578-41-26 19:10:00 Test Item Value Reference Range Interpretation Comments Basophils # (test code 0.1 See_Comment [Aut omated message] The = Basophils #) system which generated this result tra nsmitted reference range : <=0.2. The reference r paul was not used to int erpret this result as normal/abnormal . [facility] CenterYnjnmaeFVDPYOYNHW8038-51-50 19:10:00 Test Item Value Reference Range Interpretation Comments Basophils (test code = 0.9 See_Comment [Aut omated message] The Basophils) system which ge nerated this result tra nsmitted reference range : <=1.0. The reference r paul was not used to int erpret this result as normal/abnormal . [id number] 19:10:00 Test Item Value Reference Range Interpretation Comments Segs-Bands # (test code = Segs-Bands #) 3.5 1.5-8.1 [facility] [id number] 19:10:00 Test Item Value Reference Range Interpretation Comments Micro? (test code = Not Indicated Micro?) *NA*(01/30/18 2:10 PM) [facility] [id number] 19:10:00 Test Item Value Reference Range Interpretation Comments UA Urobilinogen (test code = UA <=1.0 mg/dL 0.1-1.0 Urobilinogen) [facility] [id number] 19:10:00 Test Item Value Reference Range Interpretation Comments UA Sq Epi (test code = UA Sq Epi) RARE [facility] [id number] 19:10:00 Test Item Value Reference Range Interpretation Comments UA Blood (test code = Negative (01/30/18 2:10 UA Blood) PM) [facility] [id number] 19:10:00 Test Item Value Reference Range Interpretation Comments UA Mucus (test code = UA Mucus) Few /LPF [facility] [id number] 19:10:00 Test Item Value Reference Range Interpretation Comments UA WBC (test code = 1 See_Comment [Automa veronika message] The UA WBC) system which ge nerated this result transmit veronika reference range : <=5. The reference range was not used to interpr et this result as susan l/abnormal. [facility] [id number] 19:10:00 Test Item Value Reference Range Interpretation Comments UA Bacteria (test code = UA Occasional /HPF Bacteria) [facility] [id number] 19:10:00 Test Item Value Reference Range Interpretation Comments UA Nitrite (test code Negative (01/30/18 2:10 = UA Nitrite) PM) [facility] [id number] 19:10:00 Test Item Value Reference Range Interpretation Comments UA Leuk Est (test Negative (01/30/18 2:10 code = UA Leuk Est) PM) [facility] AND [id number] 19:10:00 Test Item Value Reference Range Interpretation Comments UA Ketones (test code = UA Negative mg/dL Ketones) [facility] AND [id number] 19:10:00 Test Item Value Reference Range Interpretation Comments UA Bili (test code = Negative *NA*(01/30/18 UA Bili) 2:10 PM) [facility] AND [id number] 19:10:00 Test Item Value Reference Range Interpretation Comments UA Protein (test code = UA Negative mg/dL Protein) [facility] AND [id number] 19:10:00 Test Item Value Reference Range Interpretation Comments UA pH (test code = UA pH) 6.5 1 5.0-8.0 [facility] AND [id number] 19:10:00 Test Item Value Reference Range Interpretation Comments UA Glucose (test code = UA Negative mg/dL Glucose) [facility] AND [id number] 19:10:00 Test Item Value Reference Range Interpretation Comments UA Turbidity (test code = Clear (01/30/18 2:10 UA Turbidity) PM) [facility] AND [id number] 19:10:00 Test Item Value Reference Range Interpretation Comments UA Spec Grav (test code = UA Spec 1.005 1 Grav) [facility] AND [id number] 19:10:00 Test Item Value Reference Range Interpretation Comments UA Color (test code = Yellow *NA*(01/30/18 UA Color) 2:10 PM) [facility]
[2023-04-09 02:30] LABS: SARS-CoV-2 Antigen Rapid Res Negative (Negative)
[2023-04-09 02:31] LABS: Hematocrit 41.8 % (39.6-49.0); Lymphocytes % 12.3 % (15.3-44.8); MCV 95.1 fL (80-100); MPV 7.8 fL (7.6-11.3)
[2023-04-09 02:50] LABS: AST/SGOT 16 U/L (15-37); Albumin 3.5 g/dL (3.4-5.0); Alkaline Phosphatase 68 U/L (45-117); BUN Blood Urea Nitrogen 13 mg/dL (7-18); Bicarbonate 31 mEq/L (21-32); Bilirubin Direct 0.1 mg/dL (0-0.2); Bilirubin Indirect, Calculated 0.6 mg/dL (0.2-0.8); Bilirubin Total 0.7 mg/dL (0.2-1.0); Glomerular Filtration Rate 98 ml/min (=/>90); Glucose Level 133 mg/dL (74-106); Magnesium 2.4 mg/dL (1.6-2.4); NT PRO-BNP 117 pg/mL (<125); Potassium 3.6 mEq/L (3.5-5.1); Protein, Total 7.1 g/dL (6.4-8.2); Sodium Level 138 mEq/L (136-145); Troponin High Sensitivity 12.4 pg/mL (<58.9)
[2023-04-09 02:56] LABS: ALT/SGPT < 10 U/L (16-61)
--- NOTE | 2023-04-09 04:30 | ER ---
Nurse's Notes [facility] Name: Pritesh Salas Age: 73 yrs Sex: Male : 1950 Arrival Date: 04/09/2023 Time: 01:03 Bed 17 Private MD: Diagnosis: Parkinson's disease;Syncope;Essential (primary) hypertension;Paroxysmal atrial fibrillation Presentation: 04/09 03:00 Chief complaint: EMS states: toned out for syncope episode, pt fell onto bed, witnessed aa9 fall. pt attempted to get out of bed and fainted back into bed. on scene pt new onset afib w/rvr on monitor. Initial Sepsis Screen: Does the patient meet any 2 criteria? No. Patient's initial sepsis screen is negative. Does the patient have a suspected source of infection? No. Patient's initial sepsis screen is negative. Risk Assessment: Do you want to hurt yourself or someone else? Patient reports no desire to harm self or others. Onset of symptoms was April 09, 2023. 03:00 Method Of Arrival: EMS aa9 03:00 Acuity: WENCESLAO 3 aa9 Triage Assessment: 05:14 General: Appears in no apparent distress. comfortable, Behavior is calm, cooperative. aa9 Historical: - Allergies: 03:02 Codeine; aa9 - Home Meds: 03:02 alendronate Oral [Active]; aa9 - PMHx: 03:02 Parkinsons; aa9 03:02 Hypertensive disorder; aa9 - Immunization history:: Adult Immunizations unknown. - Social history:: Smoking status: unknown. Screenin:51 [facility] ED Fall Risk Assessment (Adult) History of falling in the last 3 months, aa9 including since admission Yes- single mechanical fall (1 pt) Confusion or Disorientation No (0 pts) Intoxicated or Sedated No (0 pts) Impaired Gait Yes (1 pt) Mobility Assist Device Used Yes (1 pt) Altered Elimination Yes (1 pt) Score/Fall Risk Level 3 or more points = High Risk Oriented to surroundings, Educated pt \T\ family on fall prevention, incl call for assistance when getting out of bed, Assessed \T\ reinforced patient's understanding of fall precautions. Abuse screen: Denies threats or abuse. Denies injuries from another. Nutritional screening: No deficits noted. Tuberculosis screening: No symptoms or risk factors identified. Assessment: 03:29 Reassessment: Patient appears in no apparent distress at this time. Patient and/or aa9 family updated on plan of care and expected duration. Pain level reassessed. Patient is alert, oriented x 3, equal unlabored respirations, skin warm/dry/pink. Vital Signs: 03:00 BP 133 / 93; Pulse 97; Resp 13; Temp 97.7; Pulse Ox 97% on R/A; Weight 61.23 kg; Height aa9 5 ft. 6 in. ; 03:15 BP 148 / 99; Pulse 93; Resp 15; Pulse Ox 99% on R/A; aa9 04:40 BP 123 / 81 LA Supine (auto/); Pulse 75; Pulse Ox 95% on R/A; aa9 04:45 BP 125 / 91 LA Sitting (auto/); Pulse 76; Pulse Ox 94% on R/A; aa9 04:50 BP 121 / 86 LA Standing (auto/); Pulse 96; Resp 18 S; Pulse Ox 94% ; aa9 03:00 Body Mass Index 21.79 (61.23 kg, 167.64 cm) aa9 ED Course: 01:14 Patient arrived in ED. la1 01:37 William Mcfarland DO is Attending Physician. ms3 01:52 XRAY Chest (1 view) In Process Unspecified. EDMS 02:50 Shalonda Perales, AURORA is Primary Nurse. aa9 03:02 Triage completed. aa9 03:03 Arm band placed on. aa9 03:26 Head Brain Wo Cont CT In Process Unspecified. EDMS 04:29 Conrad Saenz MD is Hospitalizing Provider. ms3 04:42 Lion Deal MD is Referral Physician. ms3 04:51 Patient has correct armband on for positive identification. Placed in gown. Bed in low aa9 position. Side rails up X2. Client placed on continuous cardiac and pulse oximetry monitoring. NIBP monitoring applied. 05:13 No provider procedures requiring assistance completed. IV discontinued, intact, aa9 bleeding controlled, No redness/swelling at site. Pressure dressing applied. Administered Medications: No medications were administered Medication: 05:14 VIS not applicable for this client. aa9 Outcome: 04:29 Decision to Hospitalize by Provider. ms3 04:44 Discharge ordered by . ms3 05:13 Discharged to home via wheelchair, with family. aa9 05:13 Condition: stable 05:13 Discharge instructions given to patient, Instructed on discharge instructions, follow up and referral plans. Demonstrated understanding of instructions, follow-up care. 05:14 Patient left the ED. aa9 Signatures: Dispatcher [employer] EDMS Ahmet Thomas, SENIOR MEDICAL DIRECTOR-C SENIOR MEDICAL DIRECTOR-Cla1 William Mcfarland DO DO ms3 Shalonda Perales, RN RN aa9
--- NOTE | 2023-04-09 04:30 | EDPHYS ---
Physician Documentation [facility] Name: Pritesh Salas Age: 73 yrs Sex: Male : 1950 Arrival Date: 04/09/2023 Time: 01:03 Bed 17 Private MD: ED Physician William Mcfarland HPI: 04/09 03:23 This 73 yrs old Male presents to ER via EMS with complaints of Syncope. ms3 03:23 73-year-old male with past medical history of Parkinson's and hypertension presents for ms3 syncope that lasted approximately 1 to 1-1/2 minutes via [facility]. On EMS arrival patient was found to be in atrial fibrillation with rapid ventricular rate. EMS endorses patient fell, did have incontinence. On EMS arrival patient's GCS was 15. Patient was exposed to COVID 4 days prior to arrival. EMS noted patient's blood glucose to be 142. Patient is without symptoms at this time.. Historical: - Allergies: 03:02 Codeine; aa9 - Home Meds: 03:02 alendronate Oral [Active]; aa9 - PMHx: 03:02 Parkinsons; aa9 03:02 Hypertensive disorder; aa9 - Immunization history:: Adult Immunizations unknown. - Social history:: Smoking status: unknown. ROS: 03:23 Constitutional: Negative for fever, and chills. Neck: Negative for injury, pain, and ms3 swelling, Cardiovascular: Negative for chest pain, and palpitations. Respiratory: Negative for shortness of breath, cough, wheezing, and pleuritic chest pain, Abdomen/GI: Negative for abdominal pain, nausea, vomiting, diarrhea, and constipation, MS/Extremity: Negative for injury and deformity, Skin: Negative for injury, rash, and discoloration. 03:23 Neuro: Positive for syncope. 03:23 All other systems are negative. Exam: 03:23 Constitutional: This is a well developed, well nourished patient who is awake, alert, ms3 and in no acute distress. Head/Face: Normocephalic, atraumatic. Neck: Trachea midline, no cervical lymphadenopathy. Supple, full range of motion without nuchal rigidity, or vertebral point tenderness. No Meningismus. Chest/axilla: Normal chest wall appearance and motion. Nontender with no deformity. Respiratory: Lungs have equal breath sounds bilaterally, clear to auscultation and percussion. No rales, rhonchi or wheezes noted. No increased work of breathing, no retractions or nasal flaring. Abdomen/GI: Soft, non-tender, with normal bowel sounds. No distension or tympany. No guarding or rebound. No evidence of tenderness throughout. 03:23 Skin: Warm, dry with normal turgor. Normal color with no rashes, no lesions, and no evidence of cellulitis. MS/ Extremity: Pulses equal, no cyanosis. Neurovascular intact. Full, normal range of motion. 03:23 Cardiovascular: Rate: normal, Rhythm: irregularly irregular, Pulses: no pulse deficits are appreciated, Heart sounds: normal, normal S1and S2. 03:23 ECG was reviewed by the Attending Physician. ms3 Vital Signs: 03:00 BP 133 / 93; Pulse 97; Resp 13; Temp 97.7; Pulse Ox 97% on R/A; Weight 61.23 kg; Height aa9 5 ft. 6 in. ; 03:15 BP 148 / 99; Pulse 93; Resp 15; Pulse Ox 99% on R/A; aa9 04:40 BP 123 / 81 LA Supine (auto/); Pulse 75; Pulse Ox 95% on R/A; aa9 04:45 BP 125 / 91 LA Sitting (auto/); Pulse 76; Pulse Ox 94% on R/A; aa9 04:50 BP 121 / 86 LA Standing (auto/); Pulse 96; Resp 18 S; Pulse Ox 94% ; aa9 03:00 Body Mass Index 21.79 (61.23 kg, 167.64 cm) aa9 MDM: 01:37 Patient medically screened. ms3 03:23 Differential Diagnosis: cardiac arrhythmia, idiopathic syncope, seizure. Data reviewed: ms3 vital signs, nurses notes. 04:29 Consideration of Admission/Observation Patient was admitted/placed on observation. ms3 Management of patient was discussed with the following: Hospitalist: Discussed case with TIMI Hong and he accepts patient on behalf of Dr Rodriguez.. Independent interpretation of the following test(s) in the Emergency Department CT Scan: My interpretation is CT head images reviewed and do not reveal ICH.. Historians other than the Patient: EMS: [place]. Counseling: I had a detailed discussion with the patient and/or guardian regarding: the historical points, exam findings, and any diagnostic results supporting the discharge/admit diagnosis, lab results, radiology results, the need for further work-up and treatment in the hospital. Response to treatment: the patient's symptoms have resolved after treatment, and as a result, I will admit patient. ED course: Patient remains in sinus rhythm at this time. Patient without arrhythmias noted on tele or syncope.. 04/09 01:15 Order name: Basic Metabolic Panel; Complete Time: :04/09 01:15 Order name: CBC with Diff; Complete Time: 02:35 04/09 01:15 Order name: LFT's; Complete Time: 04/09 01:15 Order name: Magnesium; Complete Time: 04/09 01:15 Order name: NT PRO-BNP; Complete Time: 04/09 01:15 Order name: Troponin HS; Complete Time: :04/09 01:15 Order name: TSH; Complete Time: 04/09 01:17 Order name: SARS RAPID; Complete Time: 02:35 04/09 01:15 Order name: XRAY Chest (1 view) 04/09 01:15 Order name: Head Brain Wo Cont CT 04/09 01:15 Order name: EKG; Complete Time: 01:16 04/09 01:15 Order name: Cardiac monitoring; Complete Time: 03:04/09 01:15 Order name: EKG - Nurse/Tech; Complete Time: 03:04/09 01:15 Order name: IV Saline Lock; Complete Time: 03:04/09 01:15 Order name: Labs collected and sent; Complete Time: 03:04/09 01:15 Order name: O2 Per Protocol; Complete Time: 03:04/09 01:15 Order name: O2 Sat Monitoring; Complete Time: 03:04/09 04:22 Order name: Orthostatics; Complete Time: 04:49 ms3 EC: Rate is 94 beats/min. Rhythm is regular. QRS Clio is Normal. DC interval is normal. QRS ms3 interval is normal. Clinical impression: NSR w/ Non-specific ST/T Changes. Interpreted by me. Reviewed by me. Administered Medications: No medications were administered Disposition Summary: 04/09/23 04:44 Discharge Ordered Location: Home(04/09/23 04:44) ms3 Condition: Stable(04/09/23 04:44) ms3 Diagnosis - Parkinson's disease(04/09/23 04:44) ms3 - Syncope ms3 - Essential (primary) hypertension(04/09/23 04:44) ms3 - Paroxysmal atrial fibrillation ms3 Followup: ms3 - With: Lion Deal MD - When: 2 - 3 days - Reason: Recheck today's complaints Discharge Instructions: - Discharge Summary Sheet la1 - Atrial Fibrillation ms3 - Hypertension, Adult ms3 - Syncope ms3 - Syncope, Sbro-am-Pwqg ms3 Forms: - Medication Reconciliation Form ms3 - Thank You Letter ms3 - Antibiotic Education ms3 - Prescription Opioid Use ms3 Signatures: Dispatcher [employer] EDMS Ahmet Thomas, TIMI-C LIBRARY CUSTOMER SERVICE CLERK-Cla1 William Mcfarland DO DO ms3 Shalonda Perales, RN RN aa9 Corrections: (The following items were deleted from the chart) 04:35 04:29 Observation ms3 la1 04:35 04:29 Conrad Saenz ms3 la1 04:35 04:29 Telemetry/MedSurg (observation) ms3 la1 04:35 04:29 Stable ms3 la1 04:35 04:29 new ms3 la1 04:35 04:29 are unchanged ms3 la1 04:35 04:29 Standard ms3 la1 04:35 04:29 ms3 la1 04:35 04:29 Syncope ms3 la1 04:35 04:29 Unspecified atrial fibrillation ms3 la1 04:35 04:29 Essential (primary) hypertension ms3 la1 04:35 04:29 Parkinson's disease ms3 la1
[2023-04-09 05:20] VITALS: TEMP 97.7
[2023-04-09 05:23] VITALS: O2SAT 94
[2023-04-09 05:24] VITALS: BP 121/86
--- NOTE | 2023-04-09 21:08 | RAD REPORT ---
EXAM DESCRIPTION: RAD - Chest Single View - 04/09/2023 1:50 am CLINICAL HISTORY: The patient is 73 years old and is Male; syncope TECHNIQUE: Frontal view of the chest. COMPARISON: No relevant prior studies available. FINDINGS: LUNGS: Unremarkable. No consolidation. PLEURAL SPACE: Unremarkable. No pneumothorax. HEART: Unremarkable. No cardiomegaly. MEDIASTINUM: Unremarkable. BONES/JOINTS: Multilevel degenerative change of the spine is present. TUBES, LINES AND DEVICES: Evidence of a vagal nerve stimulator is noted. UPPER ABDOMEN: Unremarkable as visualized. IMPRESSION: No acute cardiopulmonary process. Electronically signed by: Yoanna Martinez MD 04/09/2023 2:08 AM CDT Due to temporary technical issues with the PACS/Fluency reporting system, reports are being signed by the in house radiologists without review as a courtesy to insure prompt reporting. The interpreting radiologist is fully responsible for the content of the report.
--- NOTE | 2023-04-09 21:42 | RAD REPORT ---
EXAM DESCRIPTION: CT - Head Brain Wo Cont - 04/09/2023 6:40 am CLINICAL HISTORY: SYNCOPE TECHNIQUE: Contiguous axial CT images obtained through the brain without IV contrast. Coronal and sa gittal reformatted images were provided. This exam was performed according to our departmental dose-optimization program, which includes autom ated exposure control, adjustment of the mA and/or kV according to patient size and/or use of iterati ve reconstruction technique. COMPARISON: None available for comparison FINDINGS: Brain: Bilateral stimulator electrodes extending to the area of the thalami, resulting in significant beam hardening artifact. Prominent age-related loss of brain volume and chronic white matter ischemic changes. No focal mass effect. Drummond-white matter differentiation is within normal limits. No hemorrhage. Ventricles: No ventriculomegaly or midline shift. Extra-axial spaces: No extra-axial collection or hemorrhage. Paranasal sinuses and mastoid air cells: Well-aerated Bones: Unremarkable Soft tissues: Unremarkable IMPRESSION: 1. Bilateral stimulator electrodes extending to the area of the thalami, resulting in significant beam hardening artifact. 2. Prominent age-related loss of brain volume and chronic white matter ischemic changes. 3. No evidence of acute intracranial pathology. Electronically signed by: Caden Hutchinson MD 04/09/2023 4:28 AM CDT Due to temporary technical issues with the PACS/Fluency reporting system, reports are being signed by the in house radiologists without review as a courtesy to insure prompt reporting. The interpreting radiologist is fully responsible for the content of the report.
--- NOTE | 2023-04-10 07:29 | EKG ---
Test Date: 2023-04-09 Test Time: 01:50:29 Hydraulic Spinner: LA MEASUREMENT RESULTS: Intervals: Rate: 94 IN: 182 QRSD: 86 QT: 358 QTc: 447 [place]: P: 29 IN: 182 QRS: 6 T: 50 INTERPRETIVE STATEMENTS: Normal sinus rhythm Inferior infarct, age undetermined Abnormal ECG Compared to ECG 10/28/2008 14:31:40 Myocardial infarct finding now present Electronically Signed On 04-10-23 07:25:31 CDT by Lion Deal
== END 2023-04-09 05:14 | disposition home or self-care (01) ==
LOC: ER 01:03
DX: R55 Syncope and collapse (principal); I48.0 Paroxysmal atrial fibrillation; I10 Essential (primary) hypertension; G20 Parkinson's disease; Z20.822 Contact with and (suspected) exposure to COVID-19; Z88.5 Allergy status to narcotic agent
CPT/HCPCS: 36415; 70450; 71045; 80048; 80076; 83735; 83880; 84443; 84484; 85025; 87811; 93005; 99283

== ENCOUNTER 2025-02-18 21:32 | Emergency (ER) | payer OTHER ==
[2025-02-18] MEDS ORDERED: propofoL 1,000 MG/100 ML VIAL IV ONE (21:36)
[2025-02-18] MEDS ORDERED: ETOMIDATE 20 MG/10 ML VIAL IV ONE (21:46)
[2025-02-18] MEDS ORDERED: ROCURONIUM 50 MG/5 ML VIAL IV ONE ×2 (21:47→22:09)
[2025-02-18] MEDS ORDERED: CEFEPIME 2 GM VIAL ONE (22:16)
[2025-02-18] MEDS ORDERED: VANCOMYCIN 1 GM/VIAL ONE (22:16)
[2025-02-18] MEDS ORDERED: NA CHLORIDE 0.9% 250 ML ONE (22:17)
[2025-02-18] MEDS ORDERED: NA CHLORIDE 0.9% 100 ML ONE (22:17)
[2025-02-18] MEDS ORDERED: ALBUMIN HUMAN 25% 100 ML IV ONE (22:17)
[2025-02-18] MEDS ORDERED: NA CHLORIDE 0.9% 1,000 ML ONE ×2 (22:17→22:49)
[2025-02-18 22:27] LABS: Sqamous Epithelial None Seen /HPF (None Seen); Urine Bacteria <20 /HPF (<20); Urine Bilirubin NEGATIVE (Negative); Urine Blood 2+ (Negative); Urine Clarity Turbid (Clear); Urine Color Light-Yellow (Yellow); Urine Crystals Unidentified Few /HPF (None Seen); Urine Culture Reflex Order NOT NEEDED; Urine Glucose 3+ (Negative); Urine Ketones NEGATIVE (Negative); Urine Micro Reflex YN NO BILL MICROSCOPIC; Urine Mucus Slight /HPF (None Seen); Urine Nitrite NEGATIVE (Negative); Urine Protein 1+ (Negative); Urine Urobilinogen Normal (Normal); Urine WBC <5 /HPF (<5); Urine pH 6.5 (5.0-7.0)
[2025-02-18 22:29] LABS: Barbiturates NEGATIVE (NEGATIVE); Benzodiazepines NEGATIVE (NEGATIVE); Cocaine NEGATIVE (NEGATIVE); METHAMPHETAM NEGATIVE (NEGATIVE); Methadone NEGATIVE (NEGATIVE); Opiates NEGATIVE (NEGATIVE); Phencyclidine NEGATIVE (NEGATIVE); THC Cannibis NEGATIVE (NEGATIVE)
[2025-02-18 22:40] LABS: Absolute Basophils 0.1 K/uL (0-0.5); Absolute Eosinophils 0.3 K/uL (0-0.5); Absolute Lymphocytes (CBC) 2.2 K/uL (0.7-4.9); Absolute Monocytes 0.3 K/uL (0.1-1.3); Absolute Neutrophil 6.3 K/uL (1.8-8.0); Basophils % 0.7 % (0-1.3); Eosinophils % 2.9 % (0-4.4); Hemoglobin 13.7 g/dL (13.6-17.9); Lymphocytes % 24.4 % (15.3-44.8); MCH 31.7 pg (27.0-35.0); MCHC 33.3 g/dL (32.0-36.0); MCV 95.3 fL (80-100); MPV 8.3 fL (7.6-11.3); Monocytes % 3.4 % (3.3-12.3); Neutrophils % 68.6 % (41.7-73.7); Platelets 208 thou/uL (152-406); RBC Red Blood Cell Count 4.31 M/uL (4.33-5.43); Red Cell Distribution Width 14.1 % (12.1-15.2)
[2025-02-18 22:44] LABS: ALT/SGPT 30 U/L (16-61); AST/SGOT 242 U/L (15-37); Albumin/Globulin Ratio 0.8 (1.1-1.8); Alkaline Phosphatase 97 U/L (45-117); Anion Gap 13.5 mEq/L (5.0-15.0); BUN Blood Urea Nitrogen 16 mg/dL (7-18); Bicarbonate 22 mEq/L (21-32); Bilirubin Total 0.4 mg/dL (0.2-1.0); Creatine Phosphokinase 218 U/L (39-308); Globulin 3.6 g/dL (2.3-3.5); Glomerular Filtration Rate 70 ml/min (=/>90); Glucose Level 248 mg/dL (74-106); Lipase 46 U/L (13-75); Magnesium 2.6 mg/dL (1.6-2.4); NT PRO-BNP 102 pg/mL (<125); Potassium 3.5 mEq/L (3.5-5.1); Protein, Total 6.6 g/dL (6.4-8.2); Sodium Level 136 mEq/L (136-145)
[2025-02-18 22:47] LABS: PT Prothrombin Time 11.9 SECONDS (10-13.0); PTT, Activated Partial Thromb 33.3 SECONDS (27.2-37.4); Protime INR 1.05
[2025-02-18 22:48] LABS: Bilirubin Direct < 0.2 mg/dL (0-0.2); Bilirubin Indirect, Calculated 0.2 mg/dL (0.2-0.8); C-Reactive Protein < 2.90 mg/L (<3.00)
[2025-02-18 22:49] LABS: Troponin High Sensitivity 173.9 pg/mL (<58.9)
[2025-02-18 22:51] LABS: D-Dimer 1.39 FEUug/mL (0-0.500)
[2025-02-18] MEDS ORDERED: FENTANYL CITR 100 MCG/2 ML ONE (22:57)
[2025-02-18] MEDS ORDERED: NA CHLORIDE 0.9% 50 ML ONE (22:57)
[2025-02-18 22:58] LABS: Influenza A Ag Negative; Influenza B Ag Negative; SARS-CoV-2 Antigen Rapid Res Negative (Negative)
[2025-02-19] MEDS ORDERED: METRONIDAZOLE 500mg IVPB 500 MG/100 ML BAG IV ONE (01:33)
[2025-02-19] MEDS ORDERED: ALBUTEROL 2.5 MG/3 ML NEB SOL ONE (02:05)
[2025-02-19] MEDS ORDERED: HYDROCORTISONE SUC 100 MG INJ ONE (02:12)
[2025-02-19] MEDS ORDERED: IPRATROPIUM BROM 0.5MG/2.5ML ONE (02:13)
--- NOTE | 2025-02-19 02:22 | RAD REPORT ---
CLINICAL HISTORY: AMS. COMPARISON: CT Head 04/09/2023. TECHNIQUE: CT HEAD AND CERVICAL SPINE WITHOUT CONTRAST on 02/18/2025 9:39 PM CDT This exam was performed according to our departmental dose-optimization program, which includes autom ated exposure control, adjustment of the mA and/or kV according to patient size and/or use of iterative reconstruction technique. FINDINGS: Brain: There is no acute hemorrhage, mass effect or midline shift. Drummond-white differentiation is pres erved. There is no hydrocephalus. There is mild diffuse cerebral atrophy. There are bilateral deep brain stimulator electrodes in place. The calvarium is intact. Orbits and globes are unremarkable. There are air-fluid levels in the maxill hung sinuses. Left sphenoid sinus is nearly opacified. Mastoid air cells are clear. Cervical Spine: There is no acute fracture. Alignment is anatomic. There is moderate left greater cisco n right facet arthritis. There is mild narrowing of the C5-6 disc. Vertebral body heights are preserved. Soft tissues are unre markable. IMPRESSION: No acute findings. Electronically signed by: Donell Prince MD 02/19/2025 01:46 AM CDT RP Due to temporary technical issues with the PACS/[employer] reporting system, reports are being madiha d by the in-house radiologist without review as a courtesy to ensure prompt reporting the interpreting radiologist is fully responsible for the content of the report. Transcribed Date/Time: 02/19/2025 2:22 AM
--- NOTE | 2025-02-19 02:23 | RAD REPORT ---
CLINICAL HISTORY: Abdominal distention. COMPARISON: XR Chest 02/18/2025, CT Abdomen 02/25/[address] Chest 02/25/2018. TECHNIQUE: CT CHEST ABDOMEN PELVIS WITH IV CONTRAST on 02/18/2025 9:39 PM CDT. MIPS reconstructions wer e generated. This exam was performed according to our departmental dose-optimization program, which includes autom ated exposure control, adjustment of the mA and/or kV according to patient size and/or use of iterative reconstruction technique. FINDINGS: Vascular: Thoracic aorta is normal in course and caliber without aneurysm or dissection. Pulmonary ar teries are suboptimally opacified. Abdominal aorta is normal in course and caliber without aneurysm. Pelvic arteries are patent without aneurysm or occlusion. Chest: The heart is normal in size. Left upper chest stimulator is in place. There is no pericardial effusion. Intrathoracic lymph nodes are not enlarged. Endotracheal tube tip is just above the edwin. NG tube tip is in the distal stomach. There is no pleural effusion, pleural thickening or pneumothorax. Central airways are patent. There a re extensive areas of airspace disease throughout mostly the posterior lungs nearly diffusely. Abdomen: There are several small cysts within the liver. There is no biliary dilatation. Gallbladder is normal in appearance. The pancreas and spleen are normal in appearance. The adrenal glands and kidneys are unremarkable. There is no free air. There is no retroperitoneal adenopathy. Pelvis: There is no bowel obstruction. Urinary bladder contains a Flores catheter. There is no free fl uid. Appendix is not clearly seen. Skeleton: There are several nondisplaced low anterior rib fractures bilaterally symmetrically. These include at least the sixth and seventh ribs. IMPRESSION: Extensive bilateral pneumonia. Bilateral lower anterior rib fractures. Electronically signed by: Donell Prince MD 02/19/2025 01:55 AM CDT RP Due to temporary technical issues with the PACS/[employer] reporting system, reports are being madiha d by the in-house radiologist without review as a courtesy to ensure prompt reporting the interpreting radiologist is fully responsible for the content of the report. Transcribed Date/Time: 02/19/2025 2:23 AM
[2025-02-19] MEDS ORDERED: MIDAZOLAM HCL 2 MG/2 ML INJ ONE ×2 (02:33→05:52)
[2025-02-19] MEDS ORDERED: MIDAZOLAM HCL IN 0.9 % NACL/PF 100 MG/100 ML BAG IVPB ONE (02:33)
--- NOTE | 2025-02-19 02:53 | ER ---
Nurse's Notes [facility] Name: Pritesh Salas Age: 75 yrs Sex: Male : 1950 Arrival Date: 02/18/2025 Time: 21:32 Bed 4 Private MD: Diagnosis: Cardiac arrest, cause unspecified;Chronic respiratory failure with hypoxia;Elevated troponin I, NSTEMI, Aspiration pneumonitis, Acute Respiratory Distress Syndrome (ARDS) , Cardiogenic shock Presentation: 02/18 21:44 Chief complaint: EMS states: We were initially called for dyspnea and vomiting. upon jb4 arrival pt was pulseless and apneic. Pt had been down approximately 1-2 minutes prior to EMS arrival. We gave 2 rounds of Epi and achieved ROSC. Pt has a 7.5 ET tube 26 at the teeth. 14fr NG tube with a depth of 70. an 18g IV access to COLIN AC's , received 100mg of ketamine for sedation, 1L NS pressure bagged and Levophed 4mg/250ml of d5w. Coronavirus screen: At this time, the client does not indicate any symptoms associated with coronavirus-19. Ebola Screen: No symptoms or risks identified at this time. Initial Sepsis Screen: Does the patient meet any 2 criteria? HR > 90 bpm. Yes Does the patient have a suspected source of infection? No. Patient's initial sepsis screen is negative. Risk Assessment: Do you want to hurt yourself or someone else? Patient reports no desire to harm self or others. Onset of symptoms was February 18, 2025. Transition of care: patient was not received from another setting of care. 21:44 Method Of Arrival: EMS: [facility] jb4 21:44 Acuity: WENCESLAO 1 jb4 Triage Assessment: 21:50 General: Appears ill, obese, Behavior is unresponsive. Pain: Unable to use pain scale. jb4 Patient is unresponsive. Neuro: Level of Consciousness is unresponsive. Cardiovascular: Patient's skin is warm and dry. Respiratory: Airway via oral intubation Respiratory effort is even, Ventilator assessment: ET Tube: 7.5 26 at the teeth Respiratory Rate: 20. GI: Abdomen is round distended, vomitus noted to the pull sheet. Derm: Skin is intact, Skin is pink, warm \T\ dry. Historical: - Allergies: 21:50 Codeine; jb4 - Home Meds: 02/19 01:01 rivastigmine tartrate 6 mg oral capsule [Active]; duloxetine 60 mg oral Capsule, jb4 Delayed Release Sprinkle [Active]; Rytary 36.25-145 mg oral capsule, extended release [Active]; tamsulosin 0.4 mg oral capsule [Active]; carbidopa-levodopa 25-100 mg oral tablet, extended release [Active]; - PMHx: 02/18 21:50 Parkinsons; Hypertensive disorder; jb4 - PSHx: 02/19 02:28 DBS; jb4 - Immunization history:: Adult Immunizations unknown. - Infectious Disease History:: Denies. - Social history:: Smoking status: unknown. - Family history:: not pertinent. Screenin/07 23:30 [facility] ED Fall Risk Assessment (Adult) History of falling in the last 3 months, jb4 including since admission No falls in past 3 months (0 pts) Confusion or Disorientation No (0 pts) Intoxicated or Sedated No (0 pts) Impaired Gait No (0 pts) Mobility Assist Device Used No (0 pt) Altered Elimination No (0 pt) Score/Fall Risk Level 0 - 2 = Low Risk Oriented to surroundings, Maintained a safe environment. Abuse screen: Denies threats or abuse. Nutritional screening: No deficits noted. Tuberculosis screening: No symptoms or risk factors identified. Assessment: 23:26 Reassessment: ER provider notified of interventions taken due to HTN and hypothermia. jb4 Fluids infusing without issue, pt remains sedated and intubated. Family at the bedside. 02/19 00:43 Reassessment: Pt back from CT. Pt remains sedated and intubated. Fluids infusing jb4 through central lines and peripheral IV without issue. Pt temp has increased to 97.4. Remains on bear hugger warming blanket. 01:00 Reassessment: bear hugger turned off. jb4 01:29 General: Pt O2 is 92 %on 100% fi O2. PT has episodes of spasms with eyes opening. kd3 Provider notified. 2 point restraint for safety.. 01:38 General: bolus 30 propofol. vent settings FIO2 100%, TV 450, PEEP 10, rate 22 breaths. .kd3 01:38 Reassessment: Pt coughing and gurgling, clinching fist. RT at bedside suctioning pt. jb4 01:48 Reassessment: LOW OXYGEN SATURATION. DR. FRANKLIN AND RESPIRATORY THERAPIST IN THE ha1 ROOM. 02:08 Reassessment: Pt suction. Sats continue to fluctuate from 77% on 100%FiO2 to 85%. ER jb4 physician is aware. Istructed to change position to higher elevation. Pt increased to 80 degrees per ER physician instructions. Sats unchanged. 02:19 General: Pt is being bagged. O2 remains in the 80's. Pt Levo started for bp of 89/69. kd3 06:18 General: Status update: attempting to request transfer to [facility] since [facility] and [facility] are at capacity. Pt has a size 8 ET tube that remains at 23 at the lip with a 12 fr OG tube measuring approximately 26 at the lip. vent settings are FIO2 of 100%, PEEP of 10, tidal volume of 450 and is set to 22 respirations per minute. PT is now saturating at 100% and is well sedated; Propofol, Versed and Fentanyl drips. Pt remains on low dose of Levophed for BP support. Pt has a 16 scottish temperature Flores. Pt's family remains at the bedside. . 07:25 General: Pt report given to [facility]. . kd3 Vital Signs: 02/18 21:44 BP 133 / 76; Pulse 80; Resp 20; Temp 97.2(Ca); Pulse Ox 100% on ETT vent; Weight 80 kg jb4 (R); 22:45 BP 166 / 91; Pulse 85; Resp 20 A; Temp 96.2(Ca); Pulse Ox 100% on ETT vent; FiO2 100 %; jb4 23:15 BP 156 / 98; Pulse 84; Resp 16 A; Temp 95.7(Ca); Pulse Ox 100% on ETT vent; FiO2 100 %; jb4 23:25 BP 133 / 88; Pulse 88; Resp 16 A; Temp 95.6(Ca); Pulse Ox 100% on ETT vent; FiO2 100 %; jb4 23:35 BP 120 / 83; Pulse 83; Resp 20 A; Temp 95.6(Ca); Pulse Ox 100% on ETT vent; FiO2 100 %; jb4 23:45 BP 112 / 77; Pulse 81; Resp 20 A; Temp 96(Ca); Pulse Ox 100% on ETT vent; FiO2 100 %; jb4 23:55 BP 116 / 79; Pulse 76; Resp 20 A; Temp 96.3(Ca); Pulse Ox 100% on ETT vent; FiO2 100 %; jb4 02/19 00:45 BP 168 / 104; Pulse 85; Resp 20 A; Temp 97.5(Ca); Pulse Ox 99% on ETT vent; FiO2 100 %; jb4 01:12 BP 180 / 101; Pulse 75; Resp 20; kd3 01:30 BP 160 / 97; Pulse 88; Resp 22; Temp 98.6(Ca); Pulse Ox 92% on ETT vent; FiO2 100 %; kd3 01:49 BP 98 / 77; Pulse 105; Resp 23; Temp 98.9(Ca); Pulse Ox 77% on ETT vent; FiO2 100 %; kd3 01:51 BP 101 / 73; Pulse 104; Resp 22; Pulse Ox 77% on ETT vent; FiO2 100 %; kd3 02:08 BP 95 / 73; Pulse 101; Resp 22; Temp 99.3; Pulse Ox 80% on ETT vent; FiO2 100 %; jb4 02:20 BP 123 / 82; Pulse 102; Resp 21; Pulse Ox 87% on ETT vent; kd3 02:22 Temp 99.5(Ca); kd3 02:42 BP 121 / 86; Pulse 149; Resp 24; Temp 99.8(Ca); Pulse Ox 91% on ETT vent; FiO2 100 %; kd3 02:47 BP 115 / 94; Pulse 145; Resp 23; Pulse Ox 87% on ETT vent; FiO2 100 %; kd3 02:53 BP 119 / 85; Pulse 145; Resp 22; Temp 100(Ca); Pulse Ox 87% on ETT vent; FiO2 100 %; kd3 03:21 BP 118 / 85; Pulse 151; Resp 22; Pulse Ox 96% on ETT vent; FiO2 100 %; kd3 03:44 BP 121 / 86; Pulse 156; Resp 22; Temp 100.6(Ca); Pulse Ox 99% on ETT vent; FiO2 100 %; kd3 03:54 BP 122 / 88; Pulse 159; Resp 22; Temp 100.7(R); Pulse Ox 99% on ETT vent; FiO2 100 %; kd3 04:23 BP 90 / 75; Pulse 155; Resp 22; Pulse Ox 100% on ETT vent; FiO2 100 %; kd3 04:26 BP 112 / 84; Pulse 156; Resp 22; Pulse Ox 100% on ETT vent; FiO2 100 %; kd3 04:27 Temp 101(Ca); kd3 04:44 BP 118 / 87; Pulse 147; Resp 22; Temp 101.1(Ca); Pulse Ox 100% on ETT vent; FiO2 100 %; kd3 05:03 BP 87 / 74; Pulse 140; Resp 25; Temp 101.1(Ca); Pulse Ox 100% on ETT vent; FiO2 100 %; kd3 05:11 BP 125 / 93; Pulse 138; Resp 22; Temp 101.2(Ca); Pulse Ox 100% on ETT vent; FiO2 100 %; kd3 05:17 BP 111 / 98; Pulse 136; Resp 22; Temp 101.2(Ca); Pulse Ox 100% on ETT vent; FiO2 100 %; kd3 06:44 BP 143 / 95; Pulse 109; Resp 22; Temp 100.2(Ca); Pulse Ox 100% ; kd3 07:10 BP 152 / 98; Pulse 108; Resp 22; Temp 100.1; Pulse Ox 99% on ETT vent; FiO2 100 %; kd3 02/18 22:45 levophed decreased to 0.05mg/kg/hr, warm blankets applied. jb4 23:15 bearr hugger applied jb4 Vitals: 02/19 06:25 Cardiac Rhythm Assessment Regular Sinus tach. kd3 Constantine Coma Score: 02/18 23:44 Eye Response: none(1). Modifying Factors: Intubated. Motor Response: none(1). Verbal sp4 Response: none(1). Total: 3. ED Course: 21:33 Patient arrived in ED. kmf 21:34 Yonatan Franklin MD is Attending Physician. sp4 21:43 Radiology exam delayed due to IV insertion attempt and/or patient not having nj appropriate IV at this time. 21:50 Triage completed. jb4 21:50 Arm band placed on right wrist. EKG completed in triage. Results shown to MD. jb4 21:53 Flores cath inserted, using sterile technique, 16 Fr., by ED staff, balloon inflated, to jb4 gravity drainage, returned chris urine. Maintain EMS IV. Dressing intact. Good blood return noted. Site clean \T\ dry. Gauge \T\ site: 18g COLIN AC. Flushed with 10 mL NS. 22:11 Wesley Mccarthy, RN is Primary Nurse. jb4 22:11 Lactate w/ 2H reflex if indic. Sent. jb4 22:11 Urine Drug Screen Sent. jb4 22:11 Alcohol Level Sent. jb4 22:11 Urinalysis W/Microscopic Sent. jb4 22:11 CRP Sent. jb4 22:11 T4 Free Sent. jb4 22:11 Hepatic Function Sent. jb4 22:11 BMP Sent. jb4 22:11 Blood Culture Adult (2) Sent. jb4 22:11 CBC with Diff Sent. jb4 22:11 CPK Sent. jb4 22:11 D-Dimer Sent. jb4 22:11 Lipase Sent. jb4 22:11 Magnesium Sent. jb4 22:11 NT PRO-BNP Sent. jb4 22:11 PT-INR Sent. jb4 22:11 Ptt, Activated Sent. jb4 22:11 Troponin HS Sent. jb4 22:48 XRAY CXR (1 view) In Process Unspecified. EDMS 23:17 EKG done, by ED staff. vk 23:30 Patient has correct armband on for positive identification. Bed in low position. Call jb4 light in reach. Side rails up X 1. Provided Education on: plan of care to family.. 04/08 00:51 CT Head C Spine In Process Unspecified. EDMS 00:51 CT Chest, Abdomen, Pelvis - W/Contrast In Process Unspecified. EDMS 01:22 [facility] 01[facility] Franklni for Doc to Doc. kmf 02:04 Marianna called with an update, she is waiting for a CCU bed and will call back once one kmf is available. 02:16 Chest Single View XRAY In Process Unspecified. EDMS 02:45 escalated to in house cra at [facility] for bed placement. kmf 03:32 called for another bed update on patient. kmf 05:05 called for another bed placement update. kmf 05:25 marianna called with update, in house cra is still trying to find a bed. kmf 05:45 [facility] 06[facility]07 [facility] \T\ capacity for medical ICU and CCU. kmf 06:12 Dr. Franklin and Myself spoke with family on determining where to initiate for kmf transfer, [facility] but [facility] is at bed capacity and [facility] is at capacity. Per family request initiate with [facility]. 06:19 initiated transfer with Lianna \T\ [facility]. kmf 06:52 initiated transfer with [facility] spoke with michelle ROGERS 25 min's. vk 06:57 faxed mot and facesheet. km 06:59 pt was accepted [facility]- [place] [id number]. [place] gave admin approval at [phone]. Dr. Saenz, [facility]. 07:10 Chest Single View XRAY In Process Unspecified. EDMS Administered Medications: 02/18 21:32 Drug: Propofol IV 5 mcg/kg/min IV at calculated rate See Administration Instructions; [facility] Standard concentration 1000 mg / 100 mL; Recommended max rate 50 mcg/kg/min; Titrate 5 mcg/kg/min every 5 minutes to achieve goal (see titration policy); Goal parameter RASS score 0 to -2 Route: IV; Rate: calculated rate; Site: right antecubital; 23:00 Follow up: Rate change 10 mcg/kg/min kd3 02/19 00:57 Follow up: Rate change 15 mcg/kg/min kd3 01:24 Follow up: Rate change 25 mcg/kg/min kd3 02:23 Follow up: Rate change 50 mcg/kg/min; instructions to max out per provider kd3 02/18 21:39 Drug: Propofol IVP 100 mg IVP once; Document RASS score. Route: IVP; Site: right 3 antecubital; 02/19 00:59 Follow up: Response: No adverse reaction kd3 02/18 21:47 Drug: Etomidate IVP 20 mg IVP once Route: IVP; Site: left antecubital; [facility] 02/19 00:45 Follow up: Response: No adverse reaction jb4 02/18 21:48 Drug: Rocuronium IVP 100 mg IVP once Route: IVP; Site: left antecubital; 1 02/19 00:46 Follow up: Response: No adverse reaction 4 02/18 21:54 Drug: Norepinephrine IV 0.1 mcg/kg/min IV at calculated rate See Administration jb4 Instructions; (Standard concentration 4 mg / 250 mL D5W); Recommended max rate 3 mcg/kg/min; Titrate 0.05 mcg/kg/min as often as every 5 minutes to achieve goal (see titration policy); Goal parameter MAP greater than 65 mmHg. {Note: continued EMS infusion..} Route: IV; Rate: calculated rate; Site: left antecubital; 23:25 Follow up: IV Status: IV converted to saline lock; Held due to blood pressure jb4 maintaining without levophed. 02/19 02:39 Follow up: Rate change 10 mcg/min 3 02/18 22:35 Drug: Rocuronium IVP 100 mg IVP once Route: IVP; Site: right antecubital; 3 02/19 00:45 Follow up: Response: No adverse reaction [facility] 02/18 22:41 Drug: vancoMYCIN IVPB 1 grams IVPB once over 2 hrs Route: IVPB; Infused Over: 2 hrs; jb4 Site: right jugular; 02/19 00:58 Follow up: IV Status: Completed infusion 3 02/18 22:42 Drug: NS 0.9% IV 1000 ml IV at 125 ml/hr Per protocol; to be given as a bolus over 60 jb4 minutes Route: IV; Rate: 125 ml/hr; Site: right hand; 02/19 02:15 Follow up: Rate change 999 mg/hr kd3 03:46 Follow up: IV Status: Completed infusion 3 02/18 22:42 Drug: Albumin IVPB 25 grams 100 ml IVPB once; (Note: Albumin 25% concentration) Volume: jb4 100 ml; Route: IVPB; Site: right hand; 23:42 Follow up: Response: No adverse reaction; IV Status: Completed infusion; IV Intake: jb4 100ml 22:42 Drug: Cefepime IVPB 2 grams IVPB at 200 ml/hr once over 30 mins; (mix in NS 100 mL) jb4 Route: IVPB; Rate: 200 ml/hr; Infused Over: 30 mins; Site: right jugular; 23:15 Follow up: Response: No adverse reaction; IV Status: Completed infusion; IV Intake: jb4 100ml 22:53 Drug: NS 0.9% IV 1000 ml IV at 1 bolus Per protocol; to be given as a bolus over 60 ha1 minutes Route: IV; Rate: 1 bolus; Site: left antecubital; 02/19 00:00 Follow up: Response: No adverse reaction; IV Status: Completed infusion; IV Intake: jb4 1000ml 02/18 23:11 Drug: fentaNYL (PF) IV 25 mcg/kg/h IV at calculated rate See Administration jb4 Instructions; (Standard concentration 500 mcg / 50 mL NS [10 mcg / 1 mL); Recommended max rate 4 mcg/kg/hr; Titrate 0.25 mcg/kg/hr as often as every 3 minutes to achieve goal (see titration policy); Goal parameter RASS score 0 to -2 Route: IV; Rate: calculated rate; Site: left antecubital; 02/19 00:57 Follow up: Rate change 50 calculated rate kd3 01:08 Follow up: Rate change 100 calculated rate kd3 01:26 Follow up: Rate change 75 calculated rate kd3 05:07 Follow up: Rate change 100 Titrate kd3 06:30 Follow up: Rate change 200 calculated rate; Gaurdrails on the pump will not allow kd3 weight based for this drip. Currently running at 200mcg/hr 01:35 Drug: metroNIDAZOLE IVPB 500 mg 100 ml IVPB at 200 ml/hr once over 30 mins Volume: 100 jb4 ml; Route: IVPB; Rate: 200 ml/hr; Infused Over: 30 mins; Site: right jugular; 03:46 Follow up: IV Status: Completed infusion kd3 02:15 Drug: Solu-CORTEF IVP 100 mg IVP once Route: IVP; Site: right antecubital; jb4 03:46 Follow up: Response: No adverse reaction kd3 02:24 Drug: Albuterol Inhalation 2.5 mg Inhalation every 20 minutes x3 {Note: given by RT.} kd3 Route: Inhalation; 02:24 Drug: Ipratropium Inhalation Aerosol 0.5 mg Inhalation once; Every 20 min for a total kd3 of 3 treatments x3 {Note: given by rt .} Route: Inhalation; 02:36 Drug: Midazolam IVP or IV 0.01 mg/kg/h IV at calculated rate See Administration kd3 Instructions; (Standard concentration: 100 mg / 100 mL NS); Recommended max rate 0.1 mg/kg/hr; Titrate 0.01 mg/kg/hr as often as every 30 minutes to achieve goal (see titration policy); Goal parameter RASS 0 to -2 Route: IV; Rate: calculated rate; Site: right antecubital; 02:44 Follow up: Rate change 0.03 ml/kg/hour kd3 02:37 Drug: Midazolam IVP or IV 4 mg IVP once Route: IVP; Site: right antecubital; kd3 03:38 Drug: Aspirin NV Suppository 300 mg NV once Route: NV; kd3 03:38 Drug: Acetaminophen NV Suppository 650 mg NV once Route: NV; kd3 03:38 Drug: Acetaminophen NV Suppository 325 mg NV once Route: NV; kd3 03:39 Drug: ERYTHromycin Ophthalmic Ointment 1 application Ophthalmic once Route: Ophthalmic; kd3 Site: both eyes; 04:46 Drug: Midazolam IVP or IV 0.01 mg/kg/h IV at calculated rate See Administration kd3 Instructions; (Standard concentration: 100 mg / 100 mL NS); Recommended max rate 0.1 mg/kg/hr; Titrate 0.01 mg/kg/hr as often as every 30 minutes to achieve goal (see titration policy); Goal parameter RASS 0 to -2 Route: IV; Rate: calculated rate; Site: right jugular; 05:07 Follow up: Rate change 0.05 ml/kg/hour kd3 06:29 Follow up: Rate change 0.1 mcg/kg/min; Per provider run at max rate kd3 05:11 Drug: Ketorolac IVP 30 mg IVP once Route: IVP; Site: left antecubital; kd3 05:15 Drug: Albumin IVPB 25 grams 100 ml IVPB once; (Note: Albumin 25% concentration) Volume: kd3 100 ml; Route: IVPB; Site: left antecubital; 05:53 Drug: Midazolam IVP or IV 4 mg IVP once Route: IVP; Site: right hand; kd3 Medication: 03:45 VIS not applicable for this client. kd3 Intake: 02/18 23:15 IV: 100ml; Total: 100ml. jb4 23:42 IV: 100ml; Total: 200ml. jb4 02/19 00:00 IV: 1000ml; Total: 1200ml. jb4 Output: 06:25 Urine: 900ml (Flores); Total: 900ml. kd3 Outcome: 02:52 ER care complete, transfer ordered by . sp4 07:48 Patient left the ED. ll1 Signatures: Dispatcher [employer] EDMS Wesley Mccarthy RN RN jb4 Ricardo Nevarez Lynsay, RN RN ll1 Arianne Castillo RN RN kd3 Dhara Wang RN RN ha1 Potepalov, Sergey, MD MD sp4 [place] Rupa Zavala Corrections: (The following items were deleted from the chart) 00:58 00:56 Rate change 50 mg/hr kd3 kd3 02:10 02/18 22:45 BP 166 / 91; Pulse 85bpm; Resp 20bpm; Assisted; Pulse Ox 100% ET / jb4 Ventilator; Temp 96.2F Catheter; levophed decreased to 0.05mg/kg/hr, warm blankets applied.; [facility] 02/19 02:02/18 23:15 BP 156 / 98; Pulse 84bpm; Resp 16bpm; Assisted; Pulse Ox 100% ET / jb4 Ventilator; Temp 95.7F Catheter; bearr hugger applied; [facility] 02/19 02:10 02/18 23:25 BP 133 / 88; Pulse 88bpm; Resp 16bpm; Assisted; Pulse Ox 100% ET / jb4 Ventilator; Temp 95.6F Catheter; [facility] 02/19 02:02/18 23:35 BP 120 / 83; Pulse 83bpm; Resp 20bpm; Assisted; Pulse Ox 100% ET / jb4 Ventilator; Temp 95.6F Catheter; [facility] 02/19 02:10 02/18 23:45 BP 112 / 77; Pulse 81bpm; Resp 20bpm; Assisted; Pulse Ox 100% ET / jb4 Ventilator; Temp 96F Catheter; [facility] 02/19 02:02/18 23:55 BP 116 / 79; Pulse 76bpm; Resp 20bpm; Assisted; Pulse Ox 100% ET / jb4 Ventilator; Temp 96.3F Catheter; [facility] 02/19 02:10 00:45 BP 168 / 104; Pulse 85bpm; Resp 20bpm; Assisted; Pulse Ox 99% ET / Ventilator; jb4 Temp 97.5F Catheter; jb4 06:07 05:25 marianna updated us, in house cra is still trying to find a bed. kmf kmf 06:29 05:48 Rate change 0.1 calculated rate kd3 kd3 06:32 06:26 Rate change 200 calculated rate kd3 kd3
--- NOTE | 2025-02-19 02:53 | EDPHYS ---
Physician Documentation [facility] Name: Pritesh Salas Age: 75 yrs Sex: Male : 1950 Arrival Date: 02/18/2025 Time: 21:32 Bed 4 Private MD: ED Physician Yonatan Franklin HPI: 02/18 21:40 This 75 yrs old Male presents to ER via Unassigned with complaints of sp4 Unresponsive , . 23:44 75-year-old male presents with EMS after reported cardiac arrest at home. EMS reports sp4 that at about 9 PM patient became agitated at home and then became unresponsive. EMS reported they have administered 1 cycle of CPR and obtain ROSC. Patient's reports that patient ate 2 hours prior to the incident became agitated and grabbed his chest at home then developed profuse vomiting and became unresponsive. EMS and arrived placed 7.5 size ET tube, also placed NG tube. Patient was initiated on Levophed infusion. Patient has history of Parkinson's disease, history of insomnia as well. . History of deep brain stimulator for Parkinson's disease. Patient's local physician is Dr. Brandon Wade. Patient's medications include carbidopa levodopa extended release 25- 100, also carbidopa levodopa immediate release 10 -100 mg. Additionally melatonin 5 mg before bedtime, alendronate with calcium, rivastigmine 6 mg p.o. twice daily, duloxetine 60 mg p.o. daily, tamsulosin 0.4 mg daily, clonazepam 0.25 mg as needed anxiety. . Historical: - Allergies: 21:50 Codeine; jb4 - Home Meds: 02/19 01:01 rivastigmine tartrate 6 mg oral capsule [Active]; duloxetine 60 mg oral Capsule, jb4 Delayed Release Sprinkle [Active]; Rytary 36.25-145 mg oral capsule, extended release [Active]; tamsulosin 0.4 mg oral capsule [Active]; carbidopa-levodopa 25-100 mg oral tablet, extended release [Active]; - PMHx: 02/18 21:50 Parkinsons; Hypertensive disorder; jb4 - PSHx: 02/19 02:28 DBS; jb4 - Immunization history:: Adult Immunizations unknown. - Infectious Disease History:: Denies. - Social history:: Smoking status: unknown. - Family history:: not pertinent. ROS: 02/18 23:44 Constitutional: Negative for fever, chills, and weight loss, positive for episode of sp4 unresponsiveness and cardiac arrest. All other systems are negative, Unable to obtain ROS due to patient is on ventilator, Exam: 23:44 Constitutional: Frail elderly male, left-sided chest wall subcutaneous device reported sp4 deep brain stimulator. Intubated on arrival, Levophed infusion in place, peripheral IV in place. Patient is gagging against the tube and has equal and reactive pupils. Head/Face: Normocephalic, atraumatic. Eyes: Pupils equal round and reactive to light, additional exam is not possible. ENT: Nares patent. No nasal discharge, no septal abnormalities noted. Tympanic membranes are normal and external auditory canals are clear. Oropharynx with no redness, patient has positive gag reflex, patient is gagging against ET tube. Signs of significant aspiration, copious gastric material in the pharynx including undigested food. NG tube by EMS was found malposition. And was removed. During examination ET tube was removed and replaced with larger size 8.0 ET tube. Oropharynx was copiously suctioned and undigested food and other gastric material was removed Neck: Trachea midline, no thyromegaly or masses palpated, and no cervical lymphadenopathy. Chest/axilla: Normal chest wall appearance and motion. Nontender with no deformity. No lesions are appreciated. Subcutaneous deep brain stimulator palpated on the left side of her chest Cardiovascular: Regular tachycardia, no gallops, murmurs, or rubs. Normal PMI, no JVD. No pulse deficits. Normal central and peripheral pulses palpated. Respiratory: Lungs have equal breath sounds bilaterally, patient is intubated on arrival. Spontaneous respirations present patient is breathing against the tube and is gagging against the tube. Abdomen/GI: Soft, Perceived mild abdominal distention on exam. Hypoactive bowel sounds Back: No deformity on exam, Male : Normal genitalia with no discharge or lesions. Flores catheter placed during examination Skin: Warm, dry with normal turgor. Generalized pallor, no lesions, and no evidence of cellulitis. MS/ Extremity: Pulses equal, no cyanosis. Neurovascular intact. Full, normal range of motion. Neuro: Patient is intubated and unresponsive to painful stimuli, however patient has equal and reactive pupils, positive oculocephalic reflex, positive gag reflex. Positive spontaneous respirations. Further exam is not possible. 23:55 ECG was reviewed by the Attending Physician. EKG 2143 sinus tachycardia rate [address] elevation or depression, no ectopy. Vital Signs: 21:44 BP 133 / 76; Pulse 80; Resp 20; Temp 97.2(Ca); Pulse Ox 100% on ETT vent; Weight 80 kg jb4 (R); 22:45 BP 166 / 91; Pulse 85; Resp 20 A; Temp 96.2(Ca); Pulse Ox 100% on ETT vent; FiO2 100 %; jb4 23:15 BP 156 / 98; Pulse 84; Resp 16 A; Temp 95.7(Ca); Pulse Ox 100% on ETT vent; FiO2 100 %; jb4 23:25 BP 133 / 88; Pulse 88; Resp 16 A; Temp 95.6(Ca); Pulse Ox 100% on ETT vent; FiO2 100 %; jb4 23:35 BP 120 / 83; Pulse 83; Resp 20 A; Temp 95.6(Ca); Pulse Ox 100% on ETT vent; FiO2 100 %; jb4 23:45 BP 112 / 77; Pulse 81; Resp 20 A; Temp 96(Ca); Pulse Ox 100% on ETT vent; FiO2 100 %; jb4 23:55 BP 116 / 79; Pulse 76; Resp 20 A; Temp 96.3(Ca); Pulse Ox 100% on ETT vent; FiO2 100 %; jb4 02/19 00:45 BP 168 / 104; Pulse 85; Resp 20 A; Temp 97.5(Ca); Pulse Ox 99% on ETT vent; FiO2 100 %; jb4 01:12 BP 180 / 101; Pulse 75; Resp 20; kd3 01:30 BP 160 / 97; Pulse 88; Resp 22; Temp 98.6(Ca); Pulse Ox 92% on ETT vent; FiO2 100 %; kd3 01:49 BP 98 / 77; Pulse 105; Resp 23; Temp 98.9(Ca); Pulse Ox 77% on ETT vent; FiO2 100 %; kd3 01:51 BP 101 / 73; Pulse 104; Resp 22; Pulse Ox 77% on ETT vent; FiO2 100 %; kd3 02:08 BP 95 / 73; Pulse 101; Resp 22; Temp 99.3; Pulse Ox 80% on ETT vent; FiO2 100 %; jb4 02:20 BP 123 / 82; Pulse 102; Resp 21; Pulse Ox 87% on ETT vent; kd3 02:22 Temp 99.5(Ca); kd3 02:42 BP 121 / 86; Pulse 149; Resp 24; Temp 99.8(Ca); Pulse Ox 91% on ETT vent; FiO2 100 %; kd3 02:47 BP 115 / 94; Pulse 145; Resp 23; Pulse Ox 87% on ETT vent; FiO2 100 %; kd3 02:53 BP 119 / 85; Pulse 145; Resp 22; Temp 100(Ca); Pulse Ox 87% on ETT vent; FiO2 100 %; kd3 03:21 BP 118 / 85; Pulse 151; Resp 22; Pulse Ox 96% on ETT vent; FiO2 100 %; kd3 03:44 BP 121 / 86; Pulse 156; Resp 22; Temp 100.6(Ca); Pulse Ox 99% on ETT vent; FiO2 100 %; kd3 03:54 BP 122 / 88; Pulse 159; Resp 22; Temp 100.7(R); Pulse Ox 99% on ETT vent; FiO2 100 %; kd3 04:23 BP 90 / 75; Pulse 155; Resp 22; Pulse Ox 100% on ETT vent; FiO2 100 %; kd3 04:26 BP 112 / 84; Pulse 156; Resp 22; Pulse Ox 100% on ETT vent; FiO2 100 %; kd3 04:27 Temp 101(Ca); kd3 04:44 BP 118 / 87; Pulse 147; Resp 22; Temp 101.1(Ca); Pulse Ox 100% on ETT vent; FiO2 100 %; kd3 05:03 BP 87 / 74; Pulse 140; Resp 25; Temp 101.1(Ca); Pulse Ox 100% on ETT vent; FiO2 100 %; kd3 05:11 BP 125 / 93; Pulse 138; Resp 22; Temp 101.2(Ca); Pulse Ox 100% on ETT vent; FiO2 100 %; kd3 05:17 BP 111 / 98; Pulse 136; Resp 22; Temp 101.2(Ca); Pulse Ox 100% on ETT vent; FiO2 100 %; kd3 06:44 BP 143 / 95; Pulse 109; Resp 22; Temp 100.2(Ca); Pulse Ox 100% ; kd3 07:10 BP 152 / 98; Pulse 108; Resp 22; Temp 100.1; Pulse Ox 99% on ETT vent; FiO2 100 %; kd3 04/07 22:45 levophed decreased to 0.05mg/kg/hr, warm blankets applied. jb4 23:15 bearr hugger applied jb4 Edilma Coma Score: 23:44 Eye Response: none(1). Modifying Factors: Intubated. Motor Response: none(1). Verbal sp4 Response: none(1). Total: 3. Procedures: 22:32 Intubation: Ventilated with 100% NRB prior to procedure. O2 saturation prior to sp4 procedure was 100 %. Intubated Kopperl scope assisted intubation. EMS placed 7.5 tube prior to arrival . EMS tube was removed And size 8 ET tube was placed using S4 Glyde scope intubation blade with 8.0 mm ETT. was successful on first attempt. Ventilated with Ambu bag. ventilator. Tube secured with ETT ruiz at center of mouth measured 23 cm at lip. Placement verified by CXR, CO2 detector with (+) color change, auscultating bilateral breath sounds, O2 saturation after procedure was 100 %. Patient tolerated well, Patient was intubated with a larger size ET tube for better ventilation.. Central Line: the site was prepped with Betadine, in sterile fashion, a triple lumen catheter was inserted, in the right internal jugular vein, in 1 attempts. placement was verified, by CXR, by blood return, Ultrasound-guided central line, placed emergently for resuscitation, the site was dressed with 4X4s, Tegaderm, using sterile technique, the patient tolerated the procedure, well, Ultrasound-guided central line placed emergently for resuscitation, consent could not be obtained. Performed OG tube was placed by the . Flores catheter placed by RN. MDM: 21:40 Medical Screening Exam initiated sp4 23:55 Differential Diagnosis altered mental status, sepsis, flu, Cardiac arrest, respiratory sp4 failure. Data reviewed: vital signs, nurses notes, EMS record, old medical records, lab test result(s), EKG, radiologic studies. 02/19 00:46 ED course: EXAM DESCRIPTION: Chest Single View CLINICAL HISTORY:75 years Male, CHEST sp4 PAIN Comparison: Chest radiograph dated 04/09/2023 IMPRESSION: Endotracheal tube terminating 3.3 cm above the edwin. Appropriately placed nasogastric tube terminating in the left upper abdomen. Right IJ central venous line terminating in the distal SVC. Right upper lobe opacity. Possible trace left pleural effusion. No pneumothorax. Cardiomediastinal silhouette is within normal limits. No acute osseous abnormality. Partial evaluation of neurostimulator overlying the left chest wall. 01:49 Consideration of Admission/Observation Escalation of care including sp4 admission/observation considered. ED course: CLINICAL HISTORY: AMS. COMPARISON: CT Head 04/09/2023. TECHNIQUE: CT HEAD AND CERVICAL SPINE WITHOUT CONTRAST on 02/18/2025 9:39 PM CDT This exam was performed according to our departmental dose-optimization program, which includes automated exposure control, adjustment of the mA and/or kV according to patient size and/or use of iterative reconstruction technique. FINDINGS: Brain: There is no acute hemorrhage, mass effect or midline shift. Drummond-white differentiation is preserved. There is no hydrocephalus. There is mild diffuse cerebral atrophy. There are bilateral deep brain stimulator electrodes in place. The calvarium is intact. Orbits and globes are unremarkable. There are air-fluid levels in the maxillary sinuses. Left sphenoid sinus is nearly opacified. Mastoid air cells are clear. Cervical Spine: There is no acute fracture. Alignment is anatomic. There is moderate left greater than right facet arthritis. There is mild narrowing of the C5-6 disc. Vertebral body heights are preserved. Soft tissues are unremarkable. IMPRESSION: No acute findings. Electronically signed by: Donell Prince MD 02/19/2025 01:46 AM. 02:03 ED course: CLINICAL HISTORY: Abdominal distention. COMPARISON: XR Chest 02/18/2025, sp4 CTAbdomen 02/25/[address] Chest 02/25/2018. TECHNIQUE: CT CHESTABDOMEN PELVIS WITH IV CONTRAST on 02/18/2025 9:39 PM CDT. MIPS reconstructions were generated. This exam was performed according to our departmental dose-optimization program, which includes automated exposure control, adjustment of the mA and/or kV according to patient size and/or use of iterative reconstruction technique. FINDINGS: Vascular: Thoracic aorta is normal in course and caliber without aneurysm or dissection. Pulmonary arteries are suboptimally opacified. Abdominal aorta is normal in course and caliber without aneurysm. Pelvic arteries are patent without aneurysm or occlusion. Chest: The heart is normal in size. Left upper chest stimulator is in place. There is no pericardial effusion. Intrathoracic lymph nodes are not enlarged. Endotracheal tube tip is just above the edwin. NG tube tip is in the distal stomach. There is no pleural effusion, pleural thickening or pneumothorax. Central airways are patent. There are extensive areas of airspace disease throughout mostly the posterior lungs nearly diffusely. Abdomen: There are several small cysts within the liver. There is no biliary dilatation. Gallbladder is normal in appearance. The pancreas and spleen are normal in appearance. The adrenal glands and kidneys are unremarkable. There is no free air. There is no retroperitoneal adenopathy. Pelvis: There is no bowel obstruction. Urinary bladder contains a Flores catheter. There is no free fluid. Appendix is not clearly seen. Skeleton: There are several nondisplaced low anterior rib fractures bilaterally symmetrically. These include at least the sixth and seventh ribs. IMPRESSION: Extensive bilateral pneumonia. Bilateral lower anterior rib fractures. Electronically signed by: Donell Prince MD 02/19/2025 01:55 AM. 03:47 Management of patient was discussed with the following: Food Quality Technician: Cardiology at [address] ED course: Patient has developed severe ARDS secondary to aspiration pneumonitis. Chest x-ray has worsened. Patient decreased in oxygenation. Oxygenation dropped into the 60s. Patient had to be given albuterol and increased PEEP on the ventilator. Patient was then given Solu-Cortef as well and Flagyl for anaerobic coverage. Given Tylenol and aspirin suppositories. [facility] At this time awaiting on ICU bed assignment. . 04:43 ED course: CLINICAL HISTORY: Congestion. COMPARISON: CT Chest Abdomen Pelvis 02/19/2025 [facility] and XR Chest 02/18/2025. TECHNIQUE: XR CHEST 1 VIEW 02/19/2025 2:01 AM CDT FINDINGS: Cardiac silhouette is normal in size. There is extensive bilateral perihilar airspace disease. There may be small pleural effusions. There is no pneumothorax. There are no acute osseous findings. Endotracheal tube, nasogastric tube and right central line are unchanged. Left neural stimulator is unchanged. IMPRESSION: Significantly worsening aeration of the lungs. Electronically signed by: Donell Prince MD 02/19/2025 04:11 AM. 06:35 ED course: After several discussions with [facility] [place] no ICU bed could sp4 be secured at any of the ICU including CCU, MICU or neuro ICU. Patient was then discussed with [facility] Caitlin excepted to [facility] ICU. Patient is currently doing well 100% on ventilator and with improvement in the heart rate of 105. At 1 point heart was tachycardic at 150 with multiple PVCs but at this time heart rate stable at 106 with temperature 100.3 and oxygenation 100% on the ventilator. Will pursue transport via aeromedical transport. 02/18 21:36 Order name: BMP; Complete Time: 22:57 sp4 02/18 21:36 Order name: Blood Culture Adult (2) sp4 02/18 21:36 Order name: CBC with Diff; Complete Time: 22:47 sp4 02/18 21:36 Order name: CPK; Complete Time: 22:57 sp4 02/18 21:36 Order name: D-Dimer; Complete Time: 22:57 sp4 02/18 21:36 Order name: Hepatic Function; Complete Time: 22:57 sp4 02/18 21:36 Order name: Lipase; Complete Time: 22:57 sp4 02/18 21:36 Order name: Magnesium; Complete Time: 22:57 sp4 02/18 21:36 Order name: NT PRO-BNP; Complete Time: 22:57 sp4 02/18 21:36 Order name: PT-INR; Complete Time: 22:57 sp4 02/18 21:36 Order name: Ptt, Activated; Complete Time: 22:57 sp4 02/18 21:36 Order name: Troponin HS; Complete Time: 22:57 sp4 02/18 21:36 Order name: TSH; Complete Time: 22:57 sp4 02/18 21:36 Order name: T4 Free; Complete Time: 22:57 sp4 02/18 21:36 Order name: CRP; Complete Time: 22:57 sp4 02/18 21:38 Order name: Urinalysis W/Microscopic; Complete Time: 22:47 sp4 02/18 21:38 Order name: Alcohol Level; Complete Time: 22:47 sp4 02/18 21:38 Order name: Urine Drug Screen; Complete Time: 22:47 sp4 02/18 21:39 Order name: COVID-19 Ag + Flu A+B Ag; Complete Time: 23:01 sp4 02/18 21:39 Order name: Lactate w/ 2H reflex if indic.; Complete Time: 22:48 sp4 02/18 22:50 Order name: Ghost Lactate-NO COLLECT Timer; Complete Time: 01:18 EDMS 02/18 23:01 Order name: ABG; Complete Time: 04:40 sp4 02/19 01:19 Order name: Troponin High Sensitivity; Complete Time: 02:55 sp4 02/19 01:21 Order name: Lactate Sepsis 2 HR Follow-up; Complete Time: 01:21 EDMS 02/19 01:48 Order name: ABG; Complete Time: 04:40 sp4 02/19 06:24 Order name: ABG sp4 02/19 06:24 Order name: Troponin High Sensitivity sp4 02/18 21:36 Order name: XRAY CXR (1 view) 4 02/18 21:39 Order name: CT Head C Spine; Complete Time: 02:55 sp4 02/18 21:39 Order name: CT Chest, Abdomen, Pelvis - W/Contrast; Complete Time: 02:55 sp4 02/19 02:01 Order name: Chest Single View XRAY; Complete Time: 06:30 sp4 02/19 06:23 Order name: Chest Single View XRAY 4 02/18 21:36 Order name: Call RT; Complete Time: 01:52 sp4 02/18 23:57 Order name: EKG: already done; Complete Time: 23:58 sp4 02/18 21:34 Order name: Intubation Setup; Complete Time: 22:12 sp4 02/18 21:34 Order name: Central Line Dressing Kit; Complete Time: 21:54 sp4 02/18 21:34 Order name: Central Line Kit; Complete Time: 21:54 sp4 02/18 21:34 Order name: Chlorhexidine prep; Complete Time: 22:12 sp4 02/18 21:34 Order name: Line Caps x3; Complete Time: 22:12 sp4 02/18 21:34 Order name: NS Flushes x3; Complete Time: 22:12 sp4 02/18 21:34 Order name: Sterile Gloves; Complete Time: 22:12 sp4 02/18 21:34 Order name: Sterile Probe Cover; Complete Time: 22:12 sp4 02/18 21:36 Order name: Cardiac monitoring; Complete Time: 21:54 sp4 02/18 21:36 Order name: EKG - Nurse/Tech; Complete Time: 21:54 sp4 02/18 21:36 Order name: Flores; Complete Time: 21:54 sp4 02/18 21:36 Order name: IV Saline Lock; Complete Time: 21:54 sp4 02/18 21:36 Order name: Labs collected and sent; Complete Time: 22:11 sp4 02/18 21:36 Order name: O2 Per Protocol; Complete Time: 21:54 sp4 02/18 21:36 Order name: O2 Sat Monitoring; Complete Time: 21:54 sp4 02/18 21:40 Order name: NG Tube; Complete Time: 22:11 sp4 EC/07 21:43 Rate is 127 beats/min. Rhythm is regular, Sinus tachycardia. QRS [place] is Normal. MT sp4 interval is normal. QRS interval is normal. QT interval is normal. No Q waves. T waves are Normal. No ST changes noted. Clinical impression: No evidence of ischemia. Interpreted by me. Reviewed by me. Administered Medications: 21:32 Drug: Propofol IV 5 mcg/kg/min IV at calculated rate See Administration Instructions; ha1 Standard concentration 1000 mg / 100 mL; Recommended max rate 50 mcg/kg/min; Titrate 5 mcg/kg/min every 5 minutes to achieve goal (see titration policy); Goal parameter RASS score 0 to -2 Route: IV; Rate: calculated rate; Site: right antecubital; 23:00 Follow up: Rate change 10 mcg/kg/min kd3 02/19 00:57 Follow up: Rate change 15 mcg/kg/min kd3 01:24 Follow up: Rate change 25 mcg/kg/min kd3 02:23 Follow up: Rate change 50 mcg/kg/min; instructions to max out per provider 3 02/18 21:39 Drug: Propofol IVP 100 mg IVP once; Document RASS score. Route: IVP; Site: right kd3 antecubital; 02/19 00:59 Follow up: Response: No adverse reaction 3 02/18 21:47 Drug: Etomidate IVP 20 mg IVP once Route: IVP; Site: left antecubital; [facility] 02/19 00:45 Follow up: Response: No adverse reaction [facility] 02/18 21:48 Drug: Rocuronium IVP 100 mg IVP once Route: IVP; Site: left antecubital; [facility] 02/19 00:46 Follow up: Response: No adverse reaction [facility] 02/18 21:54 Drug: Norepinephrine IV 0.1 mcg/kg/min IV at calculated rate See Administration jb4 Instructions; (Standard concentration 4 mg / 250 mL D5W); Recommended max rate 3 mcg/kg/min; Titrate 0.05 mcg/kg/min as often as every 5 minutes to achieve goal (see titration policy); Goal parameter MAP greater than 65 mmHg. {Note: continued EMS infusion..} Route: IV; Rate: calculated rate; Site: left antecubital; 23:25 Follow up: IV Status: IV converted to saline lock; Held due to blood pressure jb4 maintaining without levophed. 02/19 02:39 Follow up: Rate change 10 mcg/min [facility] 02/18 22:35 Drug: Rocuronium IVP 100 mg IVP once Route: IVP; Site: right antecubital; 3 02/19 00:45 Follow up: Response: No adverse reaction [facility] 02/18 22:41 Drug: vancoMYCIN IVPB 1 grams IVPB once over 2 hrs Route: IVPB; Infused Over: 2 hrs; jb4 Site: right jugular; 02/19 00:58 Follow up: IV Status: Completed infusion 3 02/18 22:42 Drug: NS 0.9% IV 1000 ml IV at 125 ml/hr Per protocol; to be given as a bolus over 60 jb4 minutes Route: IV; Rate: 125 ml/hr; Site: right hand; 02/19 02:15 Follow up: Rate change 999 mg/hr kd3 03:46 Follow up: IV Status: Completed infusion 3 02/18 22:42 Drug: Albumin IVPB 25 grams 100 ml IVPB once; (Note: Albumin 25% concentration) Volume: jb4 100 ml; Route: IVPB; Site: right hand; 23:42 Follow up: Response: No adverse reaction; IV Status: Completed infusion; IV Intake: jb4 100ml 22:42 Drug: Cefepime IVPB 2 grams IVPB at 200 ml/hr once over 30 mins; (mix in NS 100 mL) jb4 Route: IVPB; Rate: 200 ml/hr; Infused Over: 30 mins; Site: right jugular; 23:15 Follow up: Response: No adverse reaction; IV Status: Completed infusion; IV Intake: jb4 100ml 22:53 Drug: NS 0.9% IV 1000 ml IV at 1 bolus Per protocol; to be given as a bolus over 60 ha1 minutes Route: IV; Rate: 1 bolus; Site: left antecubital; 02/19 00:00 Follow up: Response: No adverse reaction; IV Status: Completed infusion; IV Intake: jb4 1000ml 02/18 23:11 Drug: fentaNYL (PF) IV 25 mcg/kg/h IV at calculated rate See Administration jb4 Instructions; (Standard concentration 500 mcg / 50 mL NS [10 mcg / 1 mL); Recommended max rate 4 mcg/kg/hr; Titrate 0.25 mcg/kg/hr as often as every 3 minutes to achieve goal (see titration policy); Goal parameter RASS score 0 to -2 Route: IV; Rate: calculated rate; Site: left antecubital; 02/19 00:57 Follow up: Rate change 50 calculated rate kd3 01:08 Follow up: Rate change 100 calculated rate kd3 01:26 Follow up: Rate change 75 calculated rate kd3 05:07 Follow up: Rate change 100 Titrate kd3 06:30 Follow up: Rate change 200 calculated rate; Gaurdrails on the pump will not allow kd3 weight based for this drip. Currently running at 200mcg/hr 01:35 Drug: metroNIDAZOLE IVPB 500 mg 100 ml IVPB at 200 ml/hr once over 30 mins Volume: 100 jb4 ml; Route: IVPB; Rate: 200 ml/hr; Infused Over: 30 mins; Site: right jugular; 03:46 Follow up: IV Status: Completed infusion kd3 02:15 Drug: Solu-CORTEF IVP 100 mg IVP once Route: IVP; Site: right antecubital; jb4 03:46 Follow up: Response: No adverse reaction kd3 02:24 Drug: Albuterol Inhalation 2.5 mg Inhalation every 20 minutes x3 {Note: given by RT.} kd3 Route: Inhalation; 02:24 Drug: Ipratropium Inhalation Aerosol 0.5 mg Inhalation once; Every 20 min for a total kd3 of 3 treatments x3 {Note: given by rt .} Route: Inhalation; 02:36 Drug: Midazolam IVP or IV 0.01 mg/kg/h IV at calculated rate See Administration kd3 Instructions; (Standard concentration: 100 mg / 100 mL NS); Recommended max rate 0.1 mg/kg/hr; Titrate 0.01 mg/kg/hr as often as every 30 minutes to achieve goal (see titration policy); Goal parameter RASS 0 to -2 Route: IV; Rate: calculated rate; Site: right antecubital; 02:44 Follow up: Rate change 0.03 ml/kg/hour kd3 02:37 Drug: Midazolam IVP or IV 4 mg IVP once Route: IVP; Site: right antecubital; kd3 03:38 Drug: Aspirin MT Suppository 300 mg MT once Route: MT; kd3 03:38 Drug: Acetaminophen MT Suppository 650 mg MT once Route: MT; kd3 03:38 Drug: Acetaminophen MT Suppository 325 mg MT once Route: MT; kd3 03:39 Drug: ERYTHromycin Ophthalmic Ointment 1 application Ophthalmic once Route: Ophthalmic; kd3 Site: both eyes; 04:46 Drug: Midazolam IVP or IV 0.01 mg/kg/h IV at calculated rate See Administration kd3 Instructions; (Standard concentration: 100 mg / 100 mL NS); Recommended max rate 0.1 mg/kg/hr; Titrate 0.01 mg/kg/hr as often as every 30 minutes to achieve goal (see titration policy); Goal parameter RASS 0 to -2 Route: IV; Rate: calculated rate; Site: right jugular; 05:07 Follow up: Rate change 0.05 ml/kg/hour kd3 06:29 Follow up: Rate change 0.1 mcg/kg/min; Per provider run at max rate kd3 05:11 Drug: Ketorolac IVP 30 mg IVP once Route: IVP; Site: left antecubital; kd3 05:15 Drug: Albumin IVPB 25 grams 100 ml IVPB once; (Note: Albumin 25% concentration) Volume: kd3 100 ml; Route: IVPB; Site: left antecubital; 05:53 Drug: Midazolam IVP or IV 4 mg IVP once Route: IVP; Site: right hand; kd3 Disposition Summary: 02/19/25 02:52 Transfer Ordered Notes: Reason: Higher level of care sp4 Condition: Critical sp4 Problem: new sp4 Symptoms: are unchanged sp4 Transfer Location: [facility](02/19/25 06:34) sp4 Accepting Physician: [facility] (02/19/25 07:48) ll1 Diagnosis - Cardiac arrest, cause unspecified sp4 - Chronic respiratory failure with hypoxia sp4 - Elevated troponin I, NSTEMI, Aspiration pneumonitis, Acute Respiratory Distress sp4 Syndrome (ARDS) , Cardiogenic shock Forms: - Medication Reconciliation Form sp4 - SBAR form sp4 Critical care time excluding procedures: 02/18 22:49 Critical care time: Bedside Care: 46 minutes, Consultation: 12 minutes, Family sp4 Intervention: 12 minutes. Total time: 70 minutes Signatures: Dispatcher [employer] EDMS Wesley Mccarthy RN RN jb4 Ellyn Perez RN RN ll1 Arianne Castillo RN RN kd3 Dhara Wang RN RN ha1 Yonatan Franklin MD MD sp4 [place] Corrections: (The following items were deleted from the chart) 21:37 21:37 Chest Single View+RAD.RAD.BRZ ordered. EDMS EDMS 21:37 21:37 THYROID STIMULAT HORMONE+C.LAB.BRZ ordered. EDMS EDMS 21:37 21:37 T4 FREE+C.LAB.BRZ ordered. EDMS EDMS 21:37 21:37 C-REACTIVE PROTEIN+C.LAB.BRZ ordered. EDMS EDMS 22:12 21:34 Consent for central line completed ordered. sp4 jb4 02/19 06:34 02:52 [facility] attending Tacking Stitch Remover sp4 sp4 06:34 02:52 [facility] sp4 sp4 07:48 06:34 [facility] sp4 ll1
[2025-02-19] MEDS ORDERED: ASPIRIN 300 MG/SUPP ONE (03:19)
[2025-02-19] MEDS ORDERED: ACETAMINOPHEN 325 MG/SUPP PR ONE (03:21)
[2025-02-19] MEDS ORDERED: ACETAMINOPHEN 650MG/RECT SUPP PR ONE (03:21)
[2025-02-19] MEDS ORDERED: ERYTHROMYCIN 3.5GM OPTH OINT ONE (03:26)
[2025-02-19 03:39] LABS: Arterial Blood Carboxyhemoglob 0.3 % (0-1.5); Blood Gas Oxyhemoglobin 88.6 % (94-97); Blood O2 Saturation 90.8 % (92-98.5)
[2025-02-19 03:40] LABS: Blood Gas THB 14.4 g/dl (12-18)
[2025-02-19] MEDS ORDERED: propofoL 1,000 MG/100 ML VIAL IV ONE ×2 (03:41→07:27)
[2025-02-19 03:46] LABS: Blood Gas Oxyhemoglobin 59.1 % (94-97); Blood Gas THB 15.8 g/dl (12-18)
[2025-02-19 03:47] LABS: Arterial Blood Carboxyhemoglob 0.1 % (0-1.5); Blood O2 Saturation 59.7 % (92-98.5)
[2025-02-19] MEDS ORDERED: KETOROLAC 30 MG/ML INJ ONE (04:58)
[2025-02-19] MEDS ORDERED: ALBUMIN HUMAN 25% 100 ML IV ONE (05:06)
[2025-02-19] MEDS ORDERED: NOREPINEPHRINE BITARTRATE/D5W 4 MG/250 ML BAG IV ONE (05:22)
[2025-02-19] MEDS ORDERED: FENTANYL CITR 100 MCG/2 ML ONE (05:22)
[2025-02-19] MEDS ORDERED: NA CHLORIDE 0.9% 50 ML ONE (05:23)
--- NOTE | 2025-02-19 05:49 | RAD REPORT ---
CLINICAL HISTORY: Congestion. COMPARISON: CT Chest Abdomen Pelvis 02/19/2025 and XR Chest 02/18/2025. TECHNIQUE: XR CHEST 1 VIEW 02/19/2025 2:01 AM CDT FINDINGS: Cardiac silhouette is normal in size. There is extensive bilateral perihilar airspace disease. There may be small pleural effusions. There is no pneumothorax. There are no acute osseous findings. Endotracheal tube, nasogastric tube and right central line are unchanged. Left neural stimulator is u nchanged. IMPRESSION: Significantly worsening aeration of the lungs. Electronically signed by: Donell Prince MD 02/19/2025 04:11 AM CDT RP Due to temporary technical issues with the PACS/[employer] reporting system, reports are being madiha d by the in-house radiologist without review as a courtesy to ensure prompt reporting the interpreting radiologist is fully responsible for the content of the report. Transcribed Date/Time: 02/19/2025 5:48 AM
[2025-02-19 07:07] LABS: Arterial Blood Carboxyhemoglob 0.4 % (0-1.5); Blood Gas Oxyhemoglobin 97.4 % (94-97)
[2025-02-19 07:08] LABS: Blood Gas THB 13.7 g/dl (12-18)
--- NOTE | 2025-02-19 07:19 | RAD REPORT ---
EXAMINATION: ONE VIEW CHEST XR CLINICAL INDICATION: Male, 75 years old.,resp failure TECHNIQUE: Frontal chest projection is submitted. Examination is limited by patient positioning and t echnique. COMPARISON: 02/19/2025 radiographic at 2:10 AM FINDINGS: Endotracheal tube, enteric tube, and right IJ CVC are unchanged in position. Confluent central predom inant alveolar opacities are stable. Mild left costophrenic angle blunting may suggest trace effusion. No pneumothorax or sizable effusion. The heart is normal in size. Mediastinal contours are unremarkable. Left chest wall battery pack which may relate to nerve stimulator in place. IMPRESSION: Stable extent of central predominant bilateral airspace opacities which may reflect multifocal airspa ce disease or pulmonary edema. Stable positioning of support devices.
--- NOTE | 2025-02-19 08:17 | RAD REPORT ---
EXAM DESCRIPTION: Chest Single View CLINICAL HISTORY: 5 years Male, CHEST PAIN Comparison: Chest radiograph dated 04/09/2023 IMPRESSION: Endotracheal tube terminating 3.3 cm above the edwin. Appropriately placed nasogastric tube terminating in the left upper abdomen. Right IJ central venous line terminating in the distal SVC. Right upper lobe opacity. Possible trace left pleural effusion. No pneumothorax. Cardiomediastinal silhouette is within normal limits. No acute osseous abnormality. Partial evaluation of neurostimulator overlying the left chest wall. Electronically signed by: Mat Hamlin DO 02/18/2025 11:23 PM CDT RP 9 Due to temporary technical issues with the PACS/[employer] reporting system, reports are being madiha d by the in-house radiologist without review as a courtesy to ensure prompt reporting the interpreting radiologist is fully responsible for the content of the report. Transcribed Date/Time: 02/19/2025 8:17 AM
[2025-02-19 08:30] VITALS: BP 152/98; TEMP 100.1; O2SAT 99
--- NOTE | 2025-02-19 10:54 | EKG ---
Test Date: 2025-02-19 Test Time: 04:02:32 Audit Director: GER MEASUREMENT RESULTS: Intervals: Rate: 158 GA: 122 QRSD: 74 QT: 298 QTc: 483 [place]: P: 16 GA: 122 QRS: 11 T: 57 INTERPRETIVE STATEMENTS: Sinus tachycardia with premature atrial complexes Nonspecific T wave abnormality Abnormal ECG Compared to ECG 04/09/2023 01:50:29 Atrial premature complex(es) now present T-wave abnormality now present Sinus rhythm no longer present Myocardial infarct finding no longer present Electronically Signed On 02-19-25 10:53:37 CDT by Azam Patton
--- NOTE | 2025-02-19 10:55 | EKG ---
Test Date: 2025-02-18 Test Time: 21:43:36 Correctional Officer Lieutenant: COLE MEASUREMENT RESULTS: Intervals: Rate: 127 ND: 120 QRSD: 90 QT: 334 QTc: 485 [place]: P: 71 ND: 120 QRS: 37 T: 25 INTERPRETIVE STATEMENTS: Sinus tachycardia Inferior infarct, age undetermined Abnormal ECG Compared to ECG 04/09/2023 01:50:29 Sinus rhythm no longer present Myocardial infarct finding still present Electronically Signed On 02-19-25 10:54:41 CDT by Azam Patton
--- NOTE | 2025-02-20 12:02 | EKG ---
Test Date: 2025-02-18 Test Time: 23:15:26 Resource Efficiency Manager: COLE MEASUREMENT RESULTS: Intervals: Rate: 81 HI: 174 QRSD: 90 QT: 388 QTc: 450 [place]: P: 57 HI: 174 QRS: 44 T: 35 INTERPRETIVE STATEMENTS: Sinus rhythm with marked sinus arrhythmia Otherwise normal ECG Compared to ECG 02/18/2025 21:43:36 Sinus tachycardia no longer present Myocardial infarct finding no longer present Electronically Signed On 02-20-25 11:59:09 CDT by Azam Patton
== END 2025-02-19 07:48 | disposition short-term general hospital (02) ==
LOC: ER 21:32
DX: I21.4 Non-ST elevation (NSTEMI) myocardial infarction (principal); J96.11 Chronic respiratory failure with hypoxia; R57.0 Cardiogenic shock; J69.0 Pneumonitis due to inhalation of food and vomit; R79.89 Other specified abnormal findings of blood chemistry; I10 Essential (primary) hypertension; G20.A1 Parkinson's disease without dyskinesia, without mention of fluctuations; Z11.52 Encounter for screening for COVID-19
CPT/HCPCS: 93005 ×2; 87040 ×2; 85025; 81001; 80048; 36415; 83735; 82550; 85610; 85379; 80076; 83605 ×2; 85730; 84443; 84484 ×3; 84439; 83690; 83880; 80307; 86140; 70450; 72125; 71260; 74177; 71045 ×3; 94640; 82805 ×3; 82077; 87428; 92950 ×2; 94002; 94003; 31500; 36556; Q9967; J2704 ×3; J2250 ×3; J7613; J7644; J3010 ×2; J3370; J0692; J1720; P9047 ×2; J7050; J7030 ×2